=== PATIENT | female | born 1980 | race Caucasian/White ===

== ENCOUNTER 2019-12-07 15:43 | Emergency (ER) | payer MEDICARE, MEDICAID, SELFPAY ==
[2019-12-07 15:51] VITALS: BP 156/103; PULSE 89; RESP 20; TEMP 36.3; O2SAT 100
[2019-12-07 16:00] VITALS: BP 156/103; PULSE 89; RESP 18; TEMP 36.3; O2SAT 100; BMI 23.8
--- NOTE | 2019-12-07 16:27 | ED.PSYCH ---
HPI - Psych General Chief Complaint: Psychiatric Symptoms <Joshua Manjarrez NP - Last Filed: 12/07/19 20:59> Stated Complaint: crisis <Joshua Manjarrez NP - Last Filed: 12/07/19 20:59> Time Seen by Provider: 12/07/19 16:27 <Joshua Manjarrez NP - Last Filed: 12/07/19 20:59> Source: patient and EMS <Joshua Manjarrez NP - Last Filed: 12/07/19 20:59> Mode of arrival: EMS <Joshua Manjarrez NP - Last Filed: 12/07/19 20:59> Limitations: no limitations <Joshua Manjarrez NP - Last Filed: 12/07/19 20:59> History of Present Illness HPI Narrative: 31-year-old female with history of anxiety disorder, depression, substance abuse who was at [facility] for opiate and alcohol detox. She had reportedly a phone call that became quite upsetting to her and after phone call she made a statement to the staff that she wanted to wanting to traffic thus EMS was called and transfer to ED for further evaluation. Patient denies any thoughts of SI states she made this statement out of the moment and being upset. Patient was on a locking it there. She has otherwise been doing okay. She denies any current medical problems. <Joshua Manjarrez NP - Last Filed: 12/07/19 20:59> MD complaint: feels depressed <Joshua Manjarrez NP - Last Filed: 12/07/19 20:59> Onset (ago): hour(s) <Joshua Manjarrez NP - Last Filed: 12/07/19 20:59> Duration: resolved prior to arrival <Joshua Manjarrez NP - Last Filed: 12/07/19 20:59> History of same: Yes <Joshua Manjarrez NP - Last Filed: 12/07/19 20:59> Relieving factors: medication and therapy <Joshua Manjarrez NP - Last Filed: 12/07/19 20:59> Exacerbating factors: other <Joshua Manjarrez NP - Last Filed: 12/07/19 20:59> Associated psychiatric symptoms: depression <Joshua Manjarrez NP - Last Filed: 12/07/19 20:59> Associated symptoms: denies other symptoms <Joshua Manjarrez NP - Last Filed: 12/07/19 20:59> Treatments prior to arrival: none <Joshua Manjarrez NP - Last Filed: 12/07/19 20:59> Related Data Allergies/Adverse Reactions: Allergies Allergy/AdvReac Type Severity Reaction Status Date / Time amoxicillin [AMOXICILLIN] Allergy Intermediate STOMACH Verified 12/07/19 17:58 UPSET, stomach pain and diarrhea trazodone [TRAZODONE] Allergy Intermediate UNKNOWN Verified 12/07/19 17:58 ketorolac [From TORADOL] Allergy Mild RASH Verified 12/07/19 17:58 Sulfa (Sulfonamide Allergy Mild GI UPSET Verified 12/07/19 17:58 Antibiotics) acetaminophen [Vicodin] Allergy Unknown Unknown Verified 12/07/19 17:58 magnesium [MAGNESIUM] Allergy Unknown UNKNOWN Verified 12/07/19 17:58 promethazine [From PHENERGAN] Allergy Unknown UNKNOWN Verified 12/07/19 17:58 quetiapine [Seroquel] Allergy Unknown Unknown Verified 12/07/19 17:58 tramadol [TRAMADOL] Allergy Unknown UNK Verified 12/07/19 17:58 zolpidem Allergy Unknown Unknown Verified 12/07/19 17:58 hydrocodone [From VICODIN] AdvReac Mild MIGRAINES Verified 12/07/19 17:58 metoclopramide [From REGLAN] AdvReac Unknown PT STATES Verified 12/07/19 17:58 GETTING SHAKY pregabalin [From LYRICA] AdvReac Unknown HALLUCINATI Verified 12/07/19 17:58 ONS Sulfacet-R Allergy Unknown Stomache Uncoded 02/19/19 00:00 pain and diarrhea <Joshua Manjarrez NP - Last Filed: 12/07/19 20:59> Review of Systems Review of Systems: Constitutional: No Weight loss, No Fever, No Chills, No Night Sweats, No Fatigue, No Malaise ENT/Mouth: No Hearing loss, No Ear Pain, No Nasal Congestion, No Sinus Pain, No Hoarseness, No sore throat, No Rhinorrhea, No Swallowing Difficulty Eyes: No Eye Pain, No Swelling, No Redness, No Foreign Body, No Discharge, No Vision Changes Cardiovascular: No Chest Pain, No SOB, No Dyspnea on Exertion, No Orthopnea, No Edema, No Palpitations Respiratory: No Cough, No Sputum, No Wheezing, No Smoke Exposure, No Dyspnea Gastrointestinal: No Nausea, No Vomiting, No Diarrhea, No Constipation, No abdominal Pain, No Hematochezia, No Melena Genitourinary: no irregular bleeding, No Dysuria, No Urinary Frequency, No Hematuria, No Urinary Incontinence, No Urgency, No Flank Pain, No Urinary Flow Changes, No Hesitancy Musculoskeletal: No joint pain, No Myalgias, No Joint Swelling Skin: No Skin Lesions, No rash Neuro: No Weakness, No Numbness, No Paresthesias, No Loss of Consciousness, No Dizziness, No Headache Psych: As noted per HPI, No SI/HI/AH/VH Heme/Lymph: No Bruising, No Bleeding,No Lymphadenopathy Endocrine: No Polyuria, No Polydipsia, No Temperature Intolerance <Joshua Manjarrez NP - Last Filed: 12/07/19 20:59> Yes all other systems are reviewed and are negative <Joshua Manjarrez NP - Last Filed: 12/07/19 20:59> [facility] Past Medical History Attestation statement: The following information was validated with the patient. <Joshua Manjarrez NP - Last Filed: 12/07/19 20:59> Social History Social History: Social History Smoking Status: Unknown if ever smoked Use of substances other than those prescribed or required for medical reasons: Yes Substance Use Type: Crack/Cocaine and Heroin Substance Use Frequency: Chronic Longstanding Last Used Substance: Days (ago) Any prior treatment program specific to substance use: Yes Advance Directives: No Advance Directives Information Provided: Yes <Joshua Manjarrez NP - Last Filed: 12/07/19 20:59> Physical Exam Vital Signs: Vital Signs: Vital Signs Temp Pulse Resp BP Pulse Ox 12/07/19 20:19 16 12/07/19 16:00 97.3 F 89 18 156/103 H 100 12/07/19 15:51 97.3 F 89 20 156/103 H 100 Body Mass Index 23.8 Reviewed <Joshua Manjarrez NP - Last Filed: 12/07/19 20:59> Vital Signs: Vital Signs Temp Pulse Resp BP Pulse Ox 12/07/19 20:19 16 12/07/19 16:00 97.3 F 89 18 156/103 H 100 12/07/19 15:51 97.3 F 89 20 156/103 H 100 Body Mass Index 23.8 <Delfino Zhong MD - Last Filed: 12/07/19 21:15> Course Course Course Narrative: offers no medical complaints. Will check UA U/detox/ preg and obtain crisis evaluation. Resting comfortably. No signs of symptoms of withdrawal. <Joshua Manjarrez NP - Last Filed: 12/07/19 20:59> I have reviewed the chart <Delfino Zhong MD - Last Filed: 12/07/19 21:15> MDM - Psych Restraints Face to Face Assessment: Face to Face Assessment: Current Situation: After assessment of the patient, a review of the pertinent medical record and a discussion with nursing staff, I feel the patient requires a restrain intervention. Reaction To: [] Medical Condition: [] Behavioral State: [] Continued Need: [] <Joshua Manjarrez NP - Last Filed: 12/07/19 20:59> Lab Data Labs: Lab Results 12/07/19 12/07/19 Range/Units 16:34 16:34 Urine Color YELLOW Urine Appearance HAZY Urine pH 7.5 (5.0-8.0) Ur Specific [place] 1.015 (1.005-1.025) Urine Protein NEG (NEG-TRACE) MG/DL Urine Glucose (UA) NEG (NEG) MG/DL Urine Ketones NEG (NEG) MG/DL Urine Blood NEG (NEG) Urine Nitrite NEG (NEG) Ur Leukocyte Esterase NEG (NEG) Urine RBC 0 (0) /HPF Urine WBC 0 (0-4) /HPF Ur Squamous Epith Cells 3+ /LPF Urine Bacteria NONE /LPF Urine Yeast TRACE /HPF Urine Test NEGATIVE (NEGATIVE) Urine Opiates Screen POSITIVE H (Not Detect) Ur Barbiturates Screen Not Detected (Not Detect) Ur Phencyclidine Scrn Not Detected (Not Detect) Ur Amphetamines Screen Not Detected (Not Detect) U Benzodiazepines Scrn POSITIVE H (Not Detect) Urine Cocaine Screen POSITIVE H (Not Detect) U Marijuana (THC) Screen Not Detected (Not Detect) <Joshua Manjarrez NP - Last Filed: 12/07/19 20:59> Lab Results 12/07/19 12/07/19 Range/Units 16:34 16:34 Urine Color YELLOW Urine Appearance HAZY Urine pH 7.5 (5.0-8.0) Ur Specific [place] 1.015 (1.005-1.025) Urine Protein NEG (NEG-TRACE) MG/DL Urine Glucose (UA) NEG (NEG) MG/DL Urine Ketones NEG (NEG) MG/DL Urine Blood NEG (NEG) Urine Nitrite NEG (NEG) Ur Leukocyte Esterase NEG (NEG) Urine RBC 0 (0) /HPF Urine WBC 0 (0-4) /HPF Ur Squamous Epith Cells 3+ /LPF Urine Bacteria NONE /LPF Urine Yeast TRACE /HPF Urine Test NEGATIVE (NEGATIVE) Urine Opiates Screen POSITIVE H (Not Detect) Ur Barbiturates Screen Not Detected (Not Detect) Ur Phencyclidine Scrn Not Detected (Not Detect) Ur Amphetamines Screen Not Detected (Not Detect) U Benzodiazepines Scrn POSITIVE H (Not Detect) Urine Cocaine Screen POSITIVE H (Not Detect) U Marijuana (THC) Screen Not Detected (Not Detect) <Delfino Zhong MD - Last Filed: 12/07/19 21:15>
--- NOTE | 2019-12-07 16:34 | PC.NURSE ---
Pt cooperative with microsoft exchange administrator. Denies SI. Currently resting in bed. No signs of distress.
[2019-12-07 16:45] LABS: Glucose Urine UA NEG (NEG); Leukocyte Esterase Urine NEG (NEG); Nitrite Urine NEG (NEG); PH 7.5 (5.0-8.0); Specific Gravity - Urine 1.015 (1.005-1.025); Urine Blood NEG (NEG); Urine Ketones NEG (NEG); Urine Protein NEG (NEG-TRACE)
[2019-12-07 16:48] LABS: Appearance Urine HAZY; Color Urine YELLOW
[2019-12-07 17:18] LABS: Amphetamine Screen Urine Not Detected (Not Detect); Barbiturates, Urine Not Detected (Not Detect); Benzodiazepines Screen Urine POSITIVE (Not Detect); Cannabinoid Screen Urine Not Detected (Not Detect); Cocaine Screen Urine POSITIVE (Not Detect); Opiate Screen Urine POSITIVE (Not Detect); Phencyclidine Screen Urine Not Detected (Not Detect)
[2019-12-07] MEDS: chlordiazePOXIDE HCl 25 MG CAPSULE PO (18:11)
--- NOTE | 2019-12-07 18:13 | PC.NURSE ---
CARE team feels pt is not currently meeting criteria for discharge. Consulted with provider about mediations. Pt scored a 12 on CIWA. Medicated with librium 25 MG. N faxed.
[2019-12-07 18:27] LABS: RBC Urine 0 /HPF (0); Squamous Epithelial Cell Urine 3+ /LPF; WBC Urine 0 /HPF (0-4)
[2019-12-07 18:28] LABS: UPreg QC Valid YES; Urine Pregnancy NEGATIVE (NEGATIVE)
--- NOTE | 2019-12-07 18:32 | MHC.CARE ---
CARE Team meets with patient after receiving consult indicating that pt is depressed. Pt was sent to the ED on a section [address] [facility]. CARE Team speaks with Latisha Dowling, a counselor who met with pt today. She describes that pt was very agitated earlier today, making multiple SI statements, and asking to be discharged so that she could go run into traffic. Latisha reports that pt was not able to calm down and was very irritable. Latisha reports that ATS level of care is not able to meet pt's needs, and she needs psychiatric stabilization first before she will be able to benefit from ATS. Prov is not willing to have pt back at this time, but they advocate that pt receive psychiatric treatment and return to their program when she is able to engage. CARE Team meets with pt briefly. Pt endorses making threat to run into traffic, however, denies active SI and denies hx of attempts. CARE Team speaks with Joshua Manjarrez and recommends crisis evaluation. Pt will not be able to maintain in ATS level of care at this time, and therefore medication stabilization should be considered. CARE Team will coordinate with [facility] crisis.
--- NOTE | 2019-12-07 18:41 | PC.NURSE ---
Pt resting, resp unlabored. Pt seen by CARE team, now to be seen by bhn. bhn faxed and called.
--- NOTE | 2019-12-07 18:49 | PC.NURSE ---
CHARLES faxed and called
[2019-12-07 20:19] VITALS: RESP 16
--- NOTE | 2019-12-07 20:21 | PC.NURSE ---
Pt currently asleep, no signs of distress, respirations non-labored
[2019-12-07 21:41] VITALS: BP 136/94; PULSE 105; RESP 20; TEMP 36.1; O2SAT 100
[2019-12-07] MEDS: LORazepam 0.5 MG TABLET 1 MG PO (22:35)
[2019-12-08 00:19] VITALS: BP 140/90; PULSE 100
[2019-12-08] MEDS: cloNIDine HCL 0.1 MG TABLET PO (00:19)
[2019-12-08] MEDS: chlordiazePOXIDE HCl 25 MG CAPSULE PO (00:20)
--- NOTE | 2019-12-08 00:23 | PC.NURSE ---
PT RESTLESS, AGITATED, STATES SHE IS WITHDRAWING FROM EVERYTHING COKE, CRACK, ALCOHOL, DOPE PT MEDICATED PER EMAR, WILL RECHECK VS IN 30 MINS.
[2019-12-08] MEDS: Mirtazapine 15 MG TABLET 45 MG PO (00:50)
[2019-12-08] MEDS: Zolpidem Tartrate 5 MG TABLET 10 MG PO (00:51)
[2019-12-08 00:55] VITALS: BP 122/86; PULSE 95; RESP 17; TEMP 36.5; O2SAT 100
--- NOTE | 2019-12-08 01:43 | PC.NURSE ---
PT OOB, AMBULATED TO RESTROOM INDEPENDENTLY W/STEADY GAIT PT EATING CRACKERS AND GINGERALE HAS NO CURRENT COMPLAINTS
[2019-12-08] MEDS: diphenhydrAMINE HCL 25 MG TABLET 50 MG PO (02:14)
[2019-12-08 03:06] VITALS: BP 121/70; PULSE 90; RESP 18; O2SAT 99
--- NOTE | 2019-12-08 03:59 | PC.NURSE ---
PT OOB TO THE RESTROOM. STATES I AM GOING TO SNAP RN ASKED PT TO CLARIFY AND PT REFUSED. IT WAS DISCUSSED W/PT SHE IS HERE VOLUNTARILY. WILL CONTINUE TO MONITOR PTS VS, AND ANY SIGNS OF WITHDRAWL. PT LAST SET OF VS WNL, PT DOES NOT APPEAR DIAPHORETIC OR PALE, NO VISIBLE SHAKING, PT STEADY ON FEET. DENIES VISUAL OR AUDITORY HALLUCINATIONS. WILL CONT. TO MONITOR
--- NOTE | 2019-12-08 04:12 | ECG_ITS ---
Test Reason : MEDICAL CLEARANCE Blood Pressure : / mmHG Vent. Rate : 074 BPM Atrial Rate : 074 BPM P-R Int : 146 ms QRS Dur : 078 ms QT Int : 434 ms P-R-T Axes : 071 044 052 degrees QTc Int : 481 ms Normal sinus rhythm Left atrial enlargement Otherwise normal ECG When compared with ECG of 08-MAY-2019 18:19, ST no longer depressed in Inferior leads Lateral leads Referred By: Pilar Timmons Electronically Signed By:WILMAN BRUNNER MD
--- NOTE | 2019-12-08 04:35 | PC.NURSE ---
pt restless, requesting additional meds. Spoke w/provider will do ekg if ok will give haldol. Pt also requesting zofran at this time.
[2019-12-08] MEDS: OLANZapine 2.5 MG TABLET PO (05:02)
[2019-12-08 06:40] VITALS: BP 95/58; PULSE 70; RESP 16; TEMP 36.4; O2SAT 98
--- NOTE | 2019-12-08 06:55 | PC.NURSE ---
Report received. PT sleeping in bed. Breathing even and unlabored. PT is EATS bed search.
[2019-12-08] MEDS: DULoxetine HCl 60 MG CAPSULE.DR PO (08:25)
[2019-12-08 08:36] VITALS: BP 127/83
--- NOTE | 2019-12-08 08:50 | PC.NURSE ---
PT agitated, requested methadone, explained that without a prescription we cannot give methadone without a prescription. Pt angry, requesting discharge. provider aware, discharge paperwork given to pt, pt now saying she cannot leave and that we need to help her, explained that her paperwork was faxed to [facility] per her request, pt stating she cannot make phone calls and we need to do your job . BHN in to speak with PT.
[2019-12-08] MEDS: LORazepam 0.5 MG TABLET 1 MG PO (09:00)
--- NOTE | 2019-12-08 10:02 | PC.NURSE ---
PT is resting in bed. Calm and cooperative. PT medicated per EMAR, continues to request meds for withdraw. PT does not appear to have tremors, perspiration, nausea, unsteady gait.
[2019-12-08 11:37] VITALS: BP 100/59
--- NOTE | 2019-12-08 12:14 | PC.NURSE ---
PT is resting in bed. Calm and cooperative. PT waiting to find a ride home.
== END 2019-12-08 12:41 | disposition home or self-care (01) ==
PROVIDERS: Nurse Practitioner Primary Care; Emergency Provider Emergency Medicine
DX: F33.1 Major depressive disorder, recurrent, moderate (principal); F11.10 Opioid abuse, uncomplicated; F14.10 Cocaine abuse, uncomplicated; Z71.51 Drug abuse counseling and surveillance of drug abuser
CPT/HCPCS: 80307; 81001; 81025; 93005; 99285; Q0163

== ENCOUNTER 2019-12-09 12:55 | Inpatient (IN) | payer MEDICARE, MEDICAID, SELFPAY ==
[2019-12-09 13:08] VITALS: BP 118/83; PULSE 76; RESP 22; TEMP 36.8; O2SAT 97; BMI 23.8
[2019-12-09 13:23] VITALS: BP 112/57; PULSE 75; RESP 16; O2SAT 96
--- NOTE | 2019-12-09 13:31 | ECG_ITS ---
Test Reason : OVERDOSE Blood Pressure : / mmHG Vent. Rate : 066 BPM Atrial Rate : 066 BPM P-R Int : 152 ms QRS Dur : 080 ms QT Int : 444 ms P-R-T Axes : 074 043 038 degrees QTc Int : 465 ms Normal sinus rhythm Possible Left atrial enlargement Nonspecific T wave abnormality Prolonged QT Abnormal ECG When compared with ECG of 08-DEC-2019 04:48, Nonspecific T wave abnormality is new Referred By: Yomi Weathers Electronically Signed By:WILMAN BRUNNER MD
[2019-12-09 14:23] LABS: MANUAL DIFF FLAG NO
[2019-12-09 14:25] LABS: Basophils Percent Auto 0.4 % (0-2); Eosinophils Absolute Auto 0.2 X10*3/uL (0.0-0.4); Eosinophils Percent Auto 2.7 % (0-4); Hemoglobin 12.5 g/dl (12.0-16.0); Imm Gran Abs Auto 0.03 X10*3/uL (0.00-0.03); Imm Gran Pct Auto 0.4 % (0.0-0.4); Lymphocytes Absolute Auto 2.7 X10*3/uL (1.2-4.9); Lymphocytes Percent Auto 32.5 % (20-40); Mean Corpuscular HGB Conc 33.8 g/dl (31.0-35.0); Mean Corpuscular Hemoglobin 31.9 pg (27.0-33.0); Mean Corpuscular Volume 94.4 fL (80-98); Mean Platelet Volume 9.4 fL (9.4-12.3); Monocytes Absolute Auto 0.5 X10*3/uL (0.1-1.2); Monocytes Percent Auto 6.6 % (2-11); Neutrophils Absolute Auto 4.7 X10*3/uL (2.0-8.3); Neutrophils Percent Auto 57.4 % (45-73); Platelet Count 418 X10*3/uL (160-400); Red Blood Count 3.92 X10*6/uL (4.20-5.50); Red Cell Distribution Width 13.2 % (11.0-16.0); White Blood Count 8.2 X10*3/uL (4.8-10.8)
[2019-12-09 14:33] LABS: Prothrombin Time 12.1 SEC (10.8-13.0)
[2019-12-09 14:36] LABS: Partial Thromboplastin Time 32.6 SEC (24.1-38.0)
[2019-12-09 14:47] LABS: Ethanol < 10 mg/dL
--- NOTE | 2019-12-09 14:49 | ED.OVERDOSE ---
HPI - Overdose General Chief Complaint: Overdose Stated Complaint: overdose Time Seen by Provider: 12/09/19 13:03 Mode of arrival: ambulatory Limitations: no limitations History of Present Illness HPI Narrative: patient presents to ED for intentional overdose. Patient states she is having problems with her mother. Patient patient does not remember the quantity of pills she took, but remembers taking propranolol and Remeron. Related Data Home Medications Medication Instructions Recorded Confirmed duloxetine 60 mg PO DAILY 12/07/19 12/07/19 mirtazapine 15 mg PO BEDTIME 12/07/19 12/07/19 mirtazapine 45 mg PO BEDTIME 12/07/19 12/07/19 propranolol 120 mg PO DAILY 12/07/19 12/07/19 zolpidem 10 mg PO BEDTIME 12/07/19 12/07/19 Allergies Allergy/AdvReac Type Severity Reaction Status Date / Time amoxicillin [AMOXICILLIN] Allergy Intermediate STOMACH Verified 12/07/19 17:58 UPSET, stomach pain and diarrhea trazodone [TRAZODONE] Allergy Intermediate UNKNOWN Verified 12/07/19 17:58 ketorolac [From TORADOL] Allergy Mild RASH Verified 12/07/19 17:58 Sulfa (Sulfonamide Allergy Mild GI UPSET Verified 12/07/19 17:58 Antibiotics) acetaminophen [Vicodin] Allergy Unknown Unknown Verified 12/07/19 17:58 magnesium [MAGNESIUM] Allergy Unknown UNKNOWN Verified 12/07/19 17:58 promethazine [From PHENERGAN] Allergy Unknown UNKNOWN Verified 12/07/19 17:58 quetiapine [Seroquel] Allergy Unknown Unknown Verified 12/07/19 17:58 tramadol [TRAMADOL] Allergy Unknown UNK Verified 12/07/19 17:58 zolpidem Allergy Unknown Unknown Verified 12/07/19 17:58 hydrocodone [From VICODIN] AdvReac Mild MIGRAINES Verified 12/07/19 17:58 metoclopramide [From REGLAN] AdvReac Unknown PT STATES Verified 12/07/19 17:58 GETTING SHAKY pregabalin [From LYRICA] AdvReac Unknown HALLUCINATI Verified 12/07/19 17:58 ONS Sulfacet-R Allergy Unknown Stomache Uncoded 02/19/19 00:00 pain and diarrhea Review of Systems Review of Systems: Yes all other systems are reviewed and are negative Constitutional: Constitutional: Reports as per HPI and Reports no additional constitutional complaints Eyes: Eyes: Reports as per HPI and Reports no additional eye complaints ENT: Reports system reviewed and no additional complaints, except as documented and Reports as per HPI Cardiovascular: Cardiovascular: Reports as per HPI and Reports no additional cardiovascular complaints Respiratory: Respiratory: Reports as per HPI and Reports no additional respiratory complaints Gastrointestinal: Gastrointestinal: Reports as per HPI and Reports no additional gastrointestinal complaints Musculoskeletal: Musculoskeletal: Reports no additional musculoskeletal complaints and Reports as per HPI Neurologic: Reports system reviewed and no additional complaints, except as documented and Reports as per HPI Psychiatric: Psychiatric: Reports as per HPI and Reports depression Comments: suicide attempt [facility] Past Medical History Medical History Suicide attempt by beta gio overdose Social History Social History Alcohol intake: unknown Smoking Status: Smoker, status unknown Use of substances other than those prescribed or required for medical reasons: Yes Substance Use Type: Crack/Cocaine and Heroin Advance Directives: No Advance Directives Information Provided: No Suicidal Behavior: Self-injurious behavior Current/Past Psychiatric Disorders: Substance abuse Physical Exam Vital Signs: Vital Signs: Vital Signs Temp Pulse Resp BP Pulse Ox 12/09/19 16:43 70 98/52 L 12/09/19 16:16 98.2 F 70 20 92/50 L 100 12/09/19 13:23 75 16 112/57 L 96 12/09/19 13:08 98.3 F 76 22 H 118/83 97 Body Mass Index 23.8 Const: General: cooperative, healthy appearing, comfortable, no acute distress and well developed Orientation/consciousness: oriented to person, oriented to place, oriented to time and patient oriented x3 HENMT: Head: Yes normal to inspection Eyes: General: appearance normal, both eyes and all related structures Neck: Neck: Yes normal visual inspection and Yes full ROM Chest: Chest palpation & inspection: normal inspection of the chest, normal palpation of entire chest wall, no localized rib tenderness and no tenderness Resp: Effort & Inspection: normal respiratory effort Auscultation: clear to auscultation bilaterally Cardio: Jugular venous distension: no JVD Heart sounds: S1 normal heart sound present and S2 normal heart sound present GI: Inspection: Yes normal to inspection, No abdominal wall ecchymosis, No Abdominal wall edema and No distended Palpation (GI): Soft to palpation, not firm, nontender, no guarding and not rigid Percussion: Yes normal to percussion Auscultation: normal bowel sounds : General: No CVA tenderness and Yes no CVA tenderness Back/Spine/Pelvis: Back: no CVA tenderness, No CVA tenderness and No back tenderness Skin: General skin exam: no rashes or lesions noted Neuro: General: oriented to person, oriented to place, oriented to time, patient oriented x3, gait normal and CN's II-XI intact bilaterally Cranial nerves: Yes CN's II-XII intact bilaterally Extrem: General: Yes normal to inspection Psych: Appearance: grossly normal and well kempt Course Course Course Narrative: Patient admits to intentional overdose. Patient will have basic labs, EKG, and labs including Tylenol and salicylates. Will call poison control. IV fluids ordered. Patient eating food drinking water Reevaluation(s) Reevaluation #1: patient's labs came back normal. Patient now slightly hypotensive. Spoke with poison control who recommended patient have repeat labs, and EKG. They also recommend patient be admitted to the hospital. They states patient should receive 5 mg IV bolus of glucagon and and then patient should be placed on a glucagon IV drip 5 milligram/hour. Time: 16:30 Reevaluation #2: spoke with hospitalist Casie who agrees to accept patient. She states patient could be given glucagon IV bolus, but patient is not bradycardic and blood pressure improving. Believes glucagon IV drip can be held. We will order repeat labs Time: 16:52 Reevaluation #3: poison Control nurse called back states she informed the sugar reprocess operator head of updated vital signs and she states that the sugar reprocess operator head no longer wants the patient to receive glucagon IV or drip. Patient is still to be admitted for observation. Time: 17:41 Additional Reevaluation(s): case sign-out to MARTÍN Hidalgo to follow-up with labs and EKG. MDM - Overdose MDM Narrative Medical decision making narrative: patient to be admitted for intentional overdose by taking propanolol and Remeron. Lab Data Result diagrams: 12/09/19 14:16 12/09/19 14:16 Labs: Lab Results 10/18/20 10/18/20 10/18/20 Range/Units 14:16 14:16 14:16 WBC 8.2 (4.8-10.8) X10*3/uL RBC 3.92 L (4.20-5.50) X10*6/uL Hgb 12.5 (12.0-16.0) g/dl Hct 37.0 (37-47) % MCV 94.4 (80-98) fL MCH 31.9 (27.0-33.0) pg MCHC 33.8 (31.0-35.0) g/dl RDW 13.2 (11.0-16.0) % Plt Count 418 H (160-400) X10*3/uL MPV 9.4 (9.4-12.3) fL Immature Gran % (Auto) 0.4 (0.0-0.4) % Neut % (Auto) 57.4 (45-73) % Lymph % (Auto) 32.5 (20-40) % [place] % (Auto) 6.6 (2-11) % Eos % (Auto) 2.7 (0-4) % Baso % (Auto) 0.4 (0-2) % Lymph # (Auto) 2.7 (1.2-4.9) X10*3/uL [place] # (Auto) 0.5 (0.1-1.2) X10*3/uL Eos # (Auto) 0.2 (0.0-0.4) X10*3/uL Baso # (Auto) 0.0 (0.0-0.2) X10*3/uL Abs Immat Gran (auto) 0.03 (0.00-0.03) X10*3/uL Absolute Neuts (auto) 4.7 (2.0-8.3) X10*3/uL Absolute Nucleated RBC 0.000 (0.0-0.012) X10*3/uL Nucleated RBC % (auto) 0.0 (0.0-0.2) /100WBC PT (10.8-13.0) SEC INR (0.9-1.1) APTT (24.1-38.0) SEC Sodium 137 (135-145) mmol/L Potassium 3.5 (3.3-5.1) mmol/l Chloride 103 (96-108) mmol/L Carbon Dioxide 27 (22-29) mmol/L Anion Gap 11 L (12-20) BUN 9 (9-16) mg/dL Creatinine 0.78 (0.5-1.4) mg/dL Estim Creat Clear Calc 77.3 Estimated GFR > 60 Random Glucose 104 (60-115) mg/dL Calcium 8.9 (8.4-10.2) mg/dL Total Bilirubin < 0.2 (0.0-1.0) mg/dL Direct Bilirubin < 0.2 (0.0-0.5) mg/dL AST 25 (5-31) U/L ALT 36 H (0-31) U/L Alkaline Phosphatase 83 (39-117) U/L Total Protein 6.9 (6.5-8.0) g/dL Albumin 3.9 (3.5-5.0) g/dL Lipase 18 (8-78) U/L Salicylates < 5.0 L (15-30) mg/dL Acetaminophen < 1 (<30) mcg/mL Ethyl Alcohol < 10 mg/dL 12/09/19 Range/Units 14:16 WBC (4.8-10.8) X10*3/uL RBC (4.20-5.50) X10*6/uL Hgb (12.0-16.0) g/dl Hct (37-47) % MCV (80-98) fL MCH (27.0-33.0) pg MCHC (31.0-35.0) g/dl RDW (11.0-16.0) % Plt Count (160-400) X10*3/uL MPV (9.4-12.3) fL Immature Gran % (Auto) (0.0-0.4) % Neut % (Auto) (45-73) % Lymph % (Auto) (20-40) % [place] % (Auto) (2-11) % Eos % (Auto) (0-4) % Baso % (Auto) (0-2) % Lymph # (Auto) (1.2-4.9) X10*3/uL [place] # (Auto) (0.1-1.2) X10*3/uL Eos # (Auto) (0.0-0.4) X10*3/uL Baso # (Auto) (0.0-0.2) X10*3/uL Abs Immat Gran (auto) (0.00-0.03) X10*3/uL Absolute Neuts (auto) (2.0-8.3) X10*3/uL Absolute Nucleated RBC (0.0-0.012) X10*3/uL Nucleated RBC % (auto) (0.0-0.2) /100WBC PT 12.1 (10.8-13.0) SEC INR 1.0 (0.9-1.1) APTT 32.6 (24.1-38.0) SEC Sodium (135-145) mmol/L Potassium (3.3-5.1) mmol/l Chloride (96-108) mmol/L Carbon Dioxide (22-29) mmol/L Anion Gap (12-20) BUN (9-16) mg/dL Creatinine (0.5-1.4) mg/dL Estim Creat Clear Calc Estimated GFR Random Glucose (60-115) mg/dL Calcium (8.4-10.2) mg/dL Total Bilirubin (0.0-1.0) mg/dL Direct Bilirubin (0.0-0.5) mg/dL AST (5-31) U/L ALT (0-31) U/L Alkaline Phosphatase (39-117) U/L Total Protein (6.5-8.0) g/dL Albumin (3.5-5.0) g/dL Lipase (8-78) U/L Salicylates (15-30) mg/dL Acetaminophen (<30) mcg/mL Ethyl Alcohol mg/dL ECG Data Interpretation: Normal sinus rhythm. Ventricular heart rate 66. Nonspecific T-wave abnormality. Possible left atrial enlargement. P are interval 152. Discharge Plan Discharge Clinical Impression: Suicide attempt by beta gio overdose Patient Disposition: Admitted As Inpatient
[2019-12-09 14:50] LABS: Alanine Aminotransferase 36 U/L (0-31); Albumin Level 3.9 g/dL (3.5-5.0); Alkaline Phosphatase 83 U/L (39-117); Anion Gap 11 (12-20); Aspartate Amino Transferase 25 U/L (5-31); Bilirubin Direct < 0.2 mg/dL (0.0-0.5); Bilirubin Total < 0.2 mg/dL (0.0-1.0); Blood Urea Nitrogen 9 mg/dL (9-16); Calcium 8.9 mg/dL (8.4-10.2); Carbon Dioxide 27 mmol/L (22-29); Chloride 103 mmol/L (96-108); Creatinine Clr Calc Pharmacy 77.3; Estimated Glomerular Filt Rate > 60; Glucose Random 104 mg/dL (60-115); Lipase 18 U/L (8-78); Potassium 3.5 mmol/l (3.3-5.1); Salicylate < 5.0 mg/dL (15-30); Sodium 137 mmol/L (135-145); Total Protein 6.9 g/dL (6.5-8.0)
[2019-12-09 14:59] LABS: Acetaminophen LAB < 1 mcg/mL (<30)
[2019-12-09] MEDS: 0.9 % Sodium Chloride 1,000 ML 999 ML IVCONT ×2 (15:04)
[2019-12-09 16:16] VITALS: BP 92/50; PULSE 70; RESP 20; TEMP 36.8; O2SAT 100
[2019-12-09 16:43] VITALS: BP 98/52; PULSE 70
--- NOTE | 2019-12-09 17:26 | P.EN_ITS ---
Event Note Event Note: Date of Service: December 09, 2019 Addendum to H and P by Mid-level Provider I saw and examined the patient and participated in the gordon portion of the E/M service. I agree with the history and exam as documented by PROJECT MANAGEMENT INSTRUCTOR. Patient psych issues and here with polypharmacy, intentional overdose including Inderal and Re toya--she unable to quantify how much she took other than she took alot. BP since in ED has been trending down, yet no bradycardia. Poison control recommend Glucagon drip to counter possible delay effect of beta gio--espiecially given she is prescribed extended release of Inderal. Exam: She denies SI clamining her mother pissed her off . Will admit for IV Glucagon, and hemodynamic monitoring. She will need. CHARLES eval for disposion. She has history of opioid dependence and is at risk for withdrawal. Will give ativan, avoid clonidine as it can accentuate bradydardia. Otherwise I agree with H and P as dictated by MARTÍN.
--- NOTE | 2019-12-09 17:32 | PM.IMHP ---
History of Present Illness Date of Service: 12/09/19 <MARTÍN Culp - Last Filed: 12/09/19 18:25> Chief Complaint: intentional medication overdose <MARTÍN Culp Last Filed: 12/09/19 18:25> this is a 39-year-old female who presents to the emergency department after intentionally ingesting Remeron and propanolol. Patient reports she got in a fight with her mother and this prompted her to take a handful of propanolol and Remeron. She is less than forthcoming with the timing and amount of medication ingested. In the emergency department her labs were unremarkable EKG showed sinus rhythm at 66 beats per minute. On the monitor her heart rate remained in the 70s. Her blood pressure was on the softer side in the 90 systolic. Patient denied any chest pain, palpitations, shortness of breath. She reported feeling generalized weakness. She also reported feeling like she was starting to withdrawal from heroin and cocaine. Poison control was contacted and initially recommended glucagon but later called back and recommended observation only. This reason the decision was made to admit her to the hospital for close monitoring overnight. <MARTÍN Culp - Last Filed: 12/09/19 18:25> Review of Systems Review of Systems: Yes all other systems are reviewed and are negative <MARTÍN Culp Last Filed: 12/09/19 18:25> Constitutional: Constitutional: Denies chills and Denies fever(s) <MARTÍN Culp Last Filed: 12/09/19 18:25> Cardiovascular: Cardiovascular: Denies chest pain <MARTÍN Culp Last Filed: 12/09/19 18:25> Respiratory: Respiratory: Denies cough <MARTÍN Culp Last Filed: 12/09/19 18:25> Gastrointestinal: Gastrointestinal: Denies abdominal pain <MARTÍN Culp Last Filed: 12/09/19 18:25> [facility] Medical History: Medical History (Updated 12/10/19 @ 09:13 by [facility] Patel MD) Anxiety Asthma Chronic pain Cocaine abuse Depression Heroin abuse Migraine Suicide attempt by beta gio overdose Tobacco dependence Tremor <MARTÍN Culp Last Filed: 12/09/19 18:25> Pertinent family history: diabetes, hypertension, stroke, heart disease <MARTÍN Culp - Last Filed: 12/09/19 18:25> Surgical History: Surgical History (Updated 12/09/19 @ 17:56 by MARTÍN Culp) S/P total abdominal hysterectomy <MARTÍN Culp - Last Filed: 12/09/19 18:25> Social History: Social History (Updated 12/09/19 @ 18:09 by MARTÍN Culp) Household Members: None Housing: House Alcohol intake: current Alcohol intake frequency: 3 or more drinks per day Smoking Status: Current every day smoker Tobacco Type: Cigarette Packs Per Day: 1 Cigarettes Per Day: 20.0 Smoked in Last 30 Days: Yes Patient Interested in Nicotine Replacement: Yes Patient Given Instructions on How to Stop Smoking: No (pt not interested in quiting) Use of substances other than those prescribed or required for medical reasons: Yes Substance Use Type: Crack/Cocaine and Heroin Substance Use Frequency: Daily Last Used Substance: Hours (ago) Currently Displaying Signs/Symptoms of Drug Intoxication Withdrawal: No Any prior treatment program specific to substance use: Yes Have you been hit, kicked, punched, or otherwise hurt by someone within the past year? If so, by whom?: No Do you feel safe in your current relationship?: No Current Relationship Is there a partner from a previous relationship who is making you feel unsafe now?: No Are you made to feel afraid or neglected: No Advance Directives: No Advance Directives Information Provided: No Suicidal Behavior: Self-injurious behavior Current/Past Psychiatric Disorders: Substance abuse Do you have thoughts of harming others: None Do you have a plan to hurt others: No Plan Recently lost weight without trying: Yes <MARTÍN Culp - Last Filed: 12/09/19 18:25> Meds Allergies/Adverse reactions: Allergies Allergy/AdvReac Type Severity Reaction Status Date / Time amoxicillin [AMOXICILLIN] Allergy Intermediate STOMACH Verified 12/07/19 17:58 UPSET, stomach pain and diarrhea trazodone [TRAZODONE] Allergy Intermediate UNKNOWN Verified 12/07/19 17:58 ketorolac [From TORADOL] Allergy Mild RASH Verified 12/07/19 17:58 Sulfa (Sulfonamide Allergy Mild GI UPSET Verified 12/07/19 17:58 Antibiotics) acetaminophen [Vicodin] Allergy Unknown Unknown Verified 12/07/19 17:58 magnesium [MAGNESIUM] Allergy Unknown UNKNOWN Verified 12/07/19 17:58 promethazine [From PHENERGAN] Allergy Unknown UNKNOWN Verified 12/07/19 17:58 quetiapine [Seroquel] Allergy Unknown Unknown Verified 12/07/19 17:58 tramadol [TRAMADOL] Allergy Unknown UNK Verified 12/07/19 17:58 zolpidem Allergy Unknown Unknown Verified 12/07/19 17:58 hydrocodone [From VICODIN] AdvReac Mild MIGRAINES Verified 12/07/19 17:58 metoclopramide [From REGLAN] AdvReac Unknown PT STATES Verified 12/07/19 17:58 GETTING SHAKY pregabalin [From LYRICA] AdvReac Unknown HALLUCINATI Verified 12/07/19 17:58 ONS Sulfacet-R Allergy Unknown Stomache Uncoded 02/19/19 00:00 pain and diarrhea <MARTÍN Culp - Last Filed: 12/09/19 18:25> Home medications: Home Medications Medication Instructions Recorded Confirmed Type duloxetine 60 mg PO DAILY 12/07/19 12/09/19 History mirtazapine 45 mg PO BEDTIME 12/07/19 12/09/19 History propranolol 120 mg PO DAILY 12/07/19 12/09/19 History zolpidem 10 mg PO BEDTIME 12/07/19 12/09/19 History <MARTÍN Culp - Last Filed: 12/09/19 18:25> Physical Exam Vital Signs and Narrative: Vital Signs: Last Vital Signs Temp 98.2 F 12/09/19 16:16 Pulse 70 12/09/19 16:43 Resp 20 12/09/19 16:16 BP 98/52 L 12/09/19 16:43 Pulse Ox 100 12/09/19 16:16 Body Mass Index 23.8 <MARTÍN Culp - Last Filed: 12/09/19 18:25> Const: Nutritional Appearance: well nourished <MARTÍN Culp Last Filed: 12/09/19 18:25> Orientation/consciousness: patient oriented x3 <MARTÍN Culp Last Filed: 12/09/19 18:25> HENMT: Head: Yes normocephalic and Yes atraumatic <MARTÍN Culp - Last Filed: 12/09/19 18:25> Eyes: Sclerae: sclerae normal <MARTÍN Culp - Last Filed: 12/09/19 18:25> Chest: Chest palpation & inspection: normal inspection of the chest <MARTÍN Culp - Last Filed: 12/09/19 18:25> Resp: Effort & Inspection: normal respiratory effort and no respiratory distress <MARTÍN Culp - Last Filed: 12/09/19 18:25> Auscultation: clear to auscultation bilaterally <MARTÍN Culp - Last Filed: 12/09/19 18:25> Cardio: Rate: regular rate <MARTÍN Culp - Last Filed: 12/09/19 18:25> Rhythm: regular rhythm <MARTÍN Culp - Last Filed: 12/09/19 18:25> GI: Palpation (GI): Soft to palpation and nontender <MARTÍN Culp - Last Filed: 12/09/19 18:25> Skin: General skin exam: no rashes or lesions noted <MARTÍN Culp - Last Filed: 12/09/19 18:25> Neuro: General: patient oriented x3 <MARTÍN Culp - Last Filed: 12/09/19 18:25> Cranial nerves: Yes CN's II-XII intact bilaterally and Yes Bilaterally intact EOM present <MARTÍN Culp - Last Filed: 12/09/19 18:25> Extrem: General: Yes normal to inspection <AMRTÍN Culp - Last Filed: 12/09/19 18:25> Results Labs Labs: Laboratory Tests 12/09/19 12/09/19 12/09/19 14:16 14:16 14:16 WBC 8.2 RBC 3.92 L Hgb 12.5 Hct 37.0 MCV 94.4 MCH 31.9 MCHC 33.8 RDW 13.2 Plt Count 418 H MPV 9.4 Immature Gran % (Auto) 0.4 Neut % (Auto) 57.4 Lymph % (Auto) 32.5 [place] % (Auto) 6.6 Eos % (Auto) 2.7 Baso % (Auto) 0.4 Lymph # (Auto) 2.7 [place] # (Auto) 0.5 Eos # (Auto) 0.2 Baso # (Auto) 0.0 Abs Immat Gran (auto) 0.03 Absolute Neuts (auto) 4.7 Absolute Nucleated RBC 0.000 Nucleated RBC % (auto) 0.0 PT INR APTT Sodium 137 Potassium 3.5 Chloride 103 Carbon Dioxide 27 Anion Gap 11 L BUN 9 Creatinine 0.78 Estim Creat Clear Calc 77.3 Estimated GFR > 60 Random Glucose 104 Calcium 8.9 Total Bilirubin < 0.2 Direct Bilirubin < 0.2 AST 25 ALT 36 H Alkaline Phosphatase 83 Total Protein 6.9 Albumin 3.9 Lipase 18 Salicylates < 5.0 L Acetaminophen < 1 Ethyl Alcohol < 10 12/09/19 14:16 WBC RBC Hgb Hct MCV MCH MCHC RDW Plt Count MPV Immature Gran % (Auto) Neut % (Auto) Lymph % (Auto) [place] % (Auto) Eos % (Auto) Baso % (Auto) Lymph # (Auto) [place] # (Auto) Eos # (Auto) Baso # (Auto) Abs Immat Gran (auto) Absolute Neuts (auto) Absolute Nucleated RBC Nucleated RBC % (auto) PT 12.1 INR 1.0 APTT 32.6 Sodium Potassium Chloride Carbon Dioxide Anion Gap BUN Creatinine Estim Creat Clear Calc Estimated GFR Random Glucose Calcium Total Bilirubin Direct Bilirubin AST ALT Alkaline Phosphatase Total Protein Albumin Lipase Salicylates Acetaminophen Ethyl Alcohol <MARTÍN Culp - Last Filed: 12/09/19 18:25> Assessment and Plan (1) Suicide attempt by beta gio overdose: Status: Acute <MARTÍN Culp - Last Filed: 12/09/19 18:25> this is a 39-year-old female who presented after intentionally ingesting propanolol and Remeron intentional drug overdose hemodynamically stable poison Control has recommended cardiac monitoring - IV fluid - pacer pads in place - follow heart rate and blood pressure closely - if patient becomes hemodynamically unstable would give glucagon - BHN evaluation when medically stable - sitter polysubstance abuse unable to use clonidine given beta-gio overdose - will treat with p.r.nSofia Ativan - psych consult to Janell Yost for assistance in managing opiate withdrawal tobacco dependence smoking cessation advised - NRT DVT prophylaxis- mechanical devices this case was discussed with Dr. Patel <MARTÍN Culp - Last Filed: 12/09/19 18:25>
[2019-12-09 20:00] VITALS: BP 104/61; PULSE 75; RESP 18; TEMP 36.2; O2SAT 98
[2019-12-09] MEDS: LORazepam 0.5 MG TABLET 1 MG PO (20:25)
[2019-12-09] MEDS: Flu Vacc QS2020-21(6mos up)/PF 0.5 ML SYRINGE IM (20:25)
[2019-12-09] MEDS: 0.9 % Sodium Chloride 1,000 ML 100 ML IVCONT (20:26)
[2019-12-09] MEDS: 0.9 % Sodium Chloride Flush 3 ML SYRINGE IVFLUSH (20:30)
[2019-12-09 21:09] LABS: Glucose, Whole Blood 89 mg/dL (60-115)
[2019-12-09 21:47] LABS: MANUAL DIFF FLAG NO
[2019-12-09 21:51] LABS: Basophils Percent Auto 0.5 % (0-2); Eosinophils Absolute Auto 0.1 X10*3/uL (0.0-0.4); Eosinophils Percent Auto 2.2 % (0-4); Hematocrit 32.6 % (37-47); Hemoglobin 10.9 g/dl (12.0-16.0); Imm Gran Abs Auto 0.01 X10*3/uL (0.00-0.03); Imm Gran Pct Auto 0.2 % (0.0-0.4); Lymphocytes Absolute Auto 2.6 X10*3/uL (1.2-4.9); Lymphocytes Percent Auto 40.7 % (20-40); Mean Corpuscular HGB Conc 33.4 g/dl (31.0-35.0); Mean Corpuscular Hemoglobin 32.3 pg (27.0-33.0); Mean Corpuscular Volume 96.7 fL (80-98); Mean Platelet Volume 9.8 fL (9.4-12.3); Monocytes Absolute Auto 0.6 X10*3/uL (0.1-1.2); Monocytes Percent Auto 8.8 % (2-11); Neutrophils Percent Auto 47.6 % (45-73); Platelet Count 334 X10*3/uL (160-400); Red Blood Count 3.37 X10*6/uL (4.20-5.50); Red Cell Distribution Width 13.3 % (11.0-16.0); White Blood Count 6.4 X10*3/uL (4.8-10.8)
[2019-12-09 21:57] LABS: Prothrombin Time 12.3 SEC (10.8-13.0)
[2019-12-09 21:59] LABS: Partial Thromboplastin Time 31.1 SEC (24.1-38.0)
[2019-12-09 22:41] LABS: Acetaminophen LAB < 1 mcg/mL (<30); Alanine Aminotransferase 31 U/L (0-31); Albumin Level 3.1 g/dL (3.5-5.0); Alkaline Phosphatase 73 U/L (39-117); Anion Gap 12 (12-20); Aspartate Amino Transferase 23 U/L (5-31); Bilirubin Direct < 0.2 mg/dL (0.0-0.5); Bilirubin Total < 0.2 mg/dL (0.0-1.0); Blood Urea Nitrogen 11 mg/dL (9-16); Calcium 7.9 mg/dL (8.4-10.2); Carbon Dioxide 24 mmol/L (22-29); Chloride 108 mmol/L (96-108); Creatinine Clr Calc Pharmacy 82.6; Estimated Glomerular Filt Rate > 60; Glucose Random 104 mg/dL (60-115); Potassium 3.9 mmol/l (3.3-5.1); Sodium 140 mmol/L (135-145); Total Protein 5.7 g/dL (6.5-8.0)
[2019-12-09 23:15] LABS: Salicylate < 5.0 mg/dL (15-30)
[2019-12-09 23:23] VITALS: BP 104/69; PULSE 70; RESP 18; TEMP 36.6; O2SAT 98
[2019-12-09 23:30] LABS: Glucose, Whole Blood 81 mg/dL (60-115)
[2019-12-10] VITALS (7 sets, daily range): BP systolic 94–111; BP diastolic 59–71; PULSE 67–86; RESP 18–20; TEMP 19.5–37.2; O2SAT 98–100; BMI 23.8
--- NOTE | 2019-12-10 | ECG_ITS ---
Test Reason : CP Blood Pressure : / mmHG Vent. Rate : 075 BPM Atrial Rate : 075 BPM P-R Int : 150 ms QRS Dur : 074 ms QT Int : 412 ms P-R-T Axes : 068 028 053 degrees QTc Int : 460 ms Normal sinus rhythm Normal ECG When compared with ECG of 10-DEC-2019 11:22, No significant change was found Referred By: [facility] Electronically Signed By:WILMAN BRUNNER MD
[2019-12-10 03:34] LABS: Glucose, Whole Blood 101 mg/dL (60-115)
[2019-12-10] MEDS: LORazepam 0.5 MG TABLET 1 MG PO ×4 (03:56→23:36)
[2019-12-10 06:39] LABS: MANUAL DIFF FLAG NO
[2019-12-10] MEDS: 0.9 % Sodium Chloride 1,000 ML 100 ML IVCONT ×2 (06:47→16:50)
[2019-12-10 07:09] LABS: Anion Gap 11 (12-20); Blood Urea Nitrogen 10 mg/dL (9-16); Calcium 7.8 mg/dL (8.4-10.2); Carbon Dioxide 23 mmol/L (22-29); Chloride 110 mmol/L (96-108); Estimated Glomerular Filt Rate > 60; Glucose Random 112 mg/dL (60-115); Sodium 140 mmol/L (135-145)
[2019-12-10 07:16] LABS: Basophils Percent Auto 0.6 % (0-2); Eosinophils Absolute Auto 0.2 X10*3/uL (0.0-0.4); Eosinophils Percent Auto 3.1 % (0-4); Hematocrit 33.4 % (37-47); Hemoglobin 10.8 g/dl (12.0-16.0); Imm Gran Abs Auto 0.02 X10*3/uL (0.00-0.03); Imm Gran Pct Auto 0.4 % (0.0-0.4); Mean Corpuscular HGB Conc 32.3 g/dl (31.0-35.0); Mean Corpuscular Hemoglobin 31.5 pg (27.0-33.0); Mean Corpuscular Volume 97.4 fL (80-98); Mean Platelet Volume 10.4 fL (9.4-12.3); Monocytes Absolute Auto 0.5 X10*3/uL (0.1-1.2); Monocytes Percent Auto 9.9 % (2-11); Neutrophils Absolute Auto 2.1 X10*3/uL (2.0-8.3); Platelet Count 303 X10*3/uL (160-400); Red Blood Count 3.43 X10*6/uL (4.20-5.50); Red Cell Distribution Width 13.3 % (11.0-16.0); White Blood Count 4.9 X10*3/uL (4.8-10.8)
[2019-12-10] MEDS: Nicotine 14 MG PATCH.TD24 TRANSDERMA (08:15)
[2019-12-10] MEDS: 0.9 % Sodium Chloride Flush 3 ML SYRINGE IVFLUSH ×2 (08:15→20:27)
--- NOTE | 2019-12-10 09:10 | HO.PM.IMPN ---
Subjective Subjective Date of Service: 12/10/19 Interval History: Seen in follow-up for suicide attempt by beta-gio overdose. No event overnight. her heart rate has been stable no episodes of bradycardia. She is alert this morning versus that she is tired. Review of Systems No SI no chest pain, no dizzines Physical Exam Vital Signs: Vital Signs: Vital Signs Temp Pulse Resp BP Pulse Ox 12/10/19 07:36 67.1 F L 67 18 101/64 98 12/10/19 03:29 111/70 12/10/19 03:27 97.3 F 70 18 111/70 98 12/09/19 23:23 97.8 F 70 18 104/69 98 12/09/19 20:00 97.1 F 75 18 104/61 98 12/09/19 16:43 70 98/52 L 12/09/19 16:16 98.2 F 70 20 92/50 L 100 12/09/19 13:23 75 16 112/57 L 96 12/09/19 13:08 98.3 F 76 22 H 118/83 97 Body Mass Index 23.8 Constitutional Awake and Alert, No apparent distress Neck Supple, No lymphadenopathy Cardiovascular RRR, No M/R/G, S1 S2, No S3 S4, No pedal edema Respiratory Lungs clear, No respiratory distress Gastrointestinal Non tender, Non-distended Skin No rash Neurological Alert & oriented x3 Psychological Poor insight, Denies suicidal ideation at this time. Objective Data Current Medications Generic Name Dose Route Start Last Admin Trade Name Freq PRN Reason Stop Dose Admin Sodium Chloride 1,000 mls @ 100 mls/hr 12/09/19 19:35 12/10/19 06:47 Ns IVCONT 100 mls/hr .Q10H STEPHANIE Administration Lorazepam 1 mg 12/09/19 19:35 12/10/19 03:56 Lorazepam 0.5 Mg Tablet PO 1 mg Q6H PRN Administration withdrawal Nicotine 14 mg 12/09/19 19:35 12/10/19 08:15 Nicotine 14 Mg Patch.Td24 TRANSDERMA 14 mg DAILY STEPHANIE Administration Nicotine Polacrilex 2 mg 12/09/19 20:24 Nicotine Polacrilex 2 Mg Gum BUCCAL Q2H PRN Nicotine Cravings Sodium Chloride 3 ml 12/10/19 00:00 12/10/19 08:15 0.9 % Sodium Chloride Flush 3 Ml Syringe IVFLUSH 3 ml QSHIFT STEPHANIE Administration Labs CBC & Chem 7: 12/10/19 06:08 12/10/19 06:08 Assessment and Plan (1) Suicide attempt by beta gio overdose: Status: Acute Assessment and Plan: -Hold Inderal and other meds -BHN eval for inpatient Psych -Ativan PRN for anxity and possible withdrawal from drugs
--- NOTE | 2019-12-10 09:15 | PM.DS ---
DS: Providers Provider Date of admission: 12/09/19 17:27 Primary care physician: Unknown Physician Consults: 12/09/19 16:52 Consult to Crisis Stat Reason for consultation: intentional overdose with propanolol and remeron. depression. suicidal Has provider been notified: No 12/09/19 17:29 Consult for Sitter Routine Reason for consultation: intentional overdose 12/09/19 19:35 Consult to Physician Routine Consulting Provider: Janell Yost Reason for consultation: polysubstance abuse 12/10/19 07:53 Consult to Crisis Stat Reason for consultation: Suicial,overdose and medically ready to discharge Has provider been notified: Yes DS: Diagnosis Discharge Diagnosis (1) Suicide attempt by beta gio overdose: Status: Acute DS: Summary Hospital Course Hospital Course: HPI: 39-year-old female who presents to the emergency department after intentionally ingesting Remeron and propanolol. Patient reports she got in a fight with her mother and this prompted her to take a handful of propanolol and Remeron. She is less than forthcoming with the timing and amount of medication ingested. In the emergency department her labs were unremarkable EKG showed sinus rhythm at 66 beats per minute. On the monitor her heart rate remained in the 70s. Her blood pressure was on the softer side in the 90 systolic. Patient denied any chest pain, palpitations, shortness of breath. She reported feeling generalized weakness. She also reported feeling like she was starting to withdrawal from heroin and cocaine. Poison control was contacted and initially recommended glucagon but later called back and recommended observation only. This reason the decision was made to admit her to the hospital for close monitoring overnight. Hospial course: She was monitored on cardiac telemetry without any bradycardia, lowest pulse is 67 and Blood pressure has been stable. Will hod all Psych meds at this time. Status at Discharge Functional status at discharge: independent ambulation Overall status at discharge: patient is not back to baseline Time Spent with Patient Time attestation: Total time spent providing and/or coordinating discharge services: Time spent: Greater than 30 minutes Physical Exam Vital Signs: Vital Signs: Vital Signs Temp Pulse Resp BP Pulse Ox 12/10/19 07:36 67.1 F L 67 18 101/64 98 12/10/19 03:29 111/70 12/10/19 03:27 97.3 F 70 18 111/70 98 12/09/19 23:23 97.8 F 70 18 104/69 98 12/09/19 20:00 97.1 F 75 18 104/61 98 12/09/19 16:43 70 98/52 L 12/09/19 16:16 98.2 F 70 20 92/50 L 100 12/09/19 13:23 75 16 112/57 L 96 12/09/19 13:08 98.3 F 76 22 H 118/83 97 Body Mass Index 23.8 Constitutional Awake and Alert, No apparent distress Neck Supple, No lymphadenopathy Cardiovascular RRR, No M/R/G, S1 S2, No S3 S4, No pedal edema Respiratory Lungs clear, No respiratory distress Gastrointestinal Non tender, Non-distended Skin No rash Neurological Alert & oriented x3 Psychological poor insight and judgement DS: Data Data Completed and Pending Labs on day of discharge: Labs from last 24 hours 12/10/19 12/10/19 12/10/19 06:08 06:08 03:27 WBC 4.9 RBC 3.43 L Hgb 10.8 L Hct 33.4 L MCV 97.4 MCH 31.5 MCHC 32.3 RDW 13.3 Plt Count 303 MPV 10.4 Immature Gran % (Auto) 0.4 Neut % (Auto) 44.0 L Lymph % (Auto) 42.0 H [place] % (Auto) 9.9 Eos % (Auto) 3.1 Baso % (Auto) 0.6 Lymph # (Auto) 2.0 [place] # (Auto) 0.5 Eos # (Auto) 0.2 Baso # (Auto) 0.0 Abs Immat Gran (auto) 0.02 Absolute Neuts (auto) 2.1 Absolute Nucleated RBC 0.000 Nucleated RBC % (auto) 0.0 PT INR APTT Sodium 140 Potassium 4.0 Chloride 110 H Carbon Dioxide 23 Anion Gap 11 L BUN 10 Creatinine 0.67 Estim Creat Clear Calc 90.0 Estimated GFR > 60 POC Glucose 101 Random Glucose 112 Calcium 7.8 L Total Bilirubin Direct Bilirubin AST ALT Alkaline Phosphatase Total Protein Albumin Lipase Salicylates Acetaminophen Ethyl Alcohol 12/09/19 12/09/19 12/09/19 23:26 21:38 21:37 WBC 6.4 RBC 3.37 L Hgb 10.9 L Hct 32.6 L MCV 96.7 MCH 32.3 MCHC 33.4 RDW 13.3 Plt Count 334 MPV 9.8 Immature Gran % (Auto) 0.2 Neut % (Auto) 47.6 Lymph % (Auto) 40.7 H [place] % (Auto) 8.8 Eos % (Auto) 2.2 Baso % (Auto) 0.5 Lymph # (Auto) 2.6 [place] # (Auto) 0.6 Eos # (Auto) 0.1 Baso # (Auto) 0.0 Abs Immat Gran (auto) 0.01 Absolute Neuts (auto) 3.0 Absolute Nucleated RBC 0.000 Nucleated RBC % (auto) 0.0 PT INR APTT Sodium Potassium Chloride Carbon Dioxide Anion Gap BUN Creatinine Estim Creat Clear Calc Estimated GFR POC Glucose 81 Random Glucose Calcium Total Bilirubin Direct Bilirubin AST ALT Alkaline Phosphatase Total Protein Albumin Lipase Salicylates < 5.0 L Acetaminophen < 1 Ethyl Alcohol 12/09/19 12/09/19 12/09/19 21:37 21:37 20:55 WBC RBC Hgb Hct MCV MCH MCHC RDW Plt Count MPV Immature Gran % (Auto) Neut % (Auto) Lymph % (Auto) [place] % (Auto) Eos % (Auto) Baso % (Auto) Lymph # (Auto) [place] # (Auto) Eos # (Auto) Baso # (Auto) Abs Immat Gran (auto) Absolute Neuts (auto) Absolute Nucleated RBC Nucleated RBC % (auto) PT 12.3 INR 1.0 APTT 31.1 Sodium 140 Potassium 3.9 Chloride 108 Carbon Dioxide 24 Anion Gap 12 BUN 11 Creatinine 0.73 Estim Creat Clear Calc 82.6 Estimated GFR > 60 POC Glucose 89 Random Glucose 104 Calcium 7.9 L Total Bilirubin < 0.2 Direct Bilirubin < 0.2 AST 23 ALT 31 Alkaline Phosphatase 73 Total Protein 5.7 L Albumin 3.1 L D Lipase Salicylates Acetaminophen Ethyl Alcohol 12/09/19 12/09/19 12/09/19 14:16 14:16 14:16 WBC RBC Hgb Hct MCV MCH MCHC RDW Plt Count MPV Immature Gran % (Auto) Neut % (Auto) Lymph % (Auto) [place] % (Auto) Eos % (Auto) Baso % (Auto) Lymph # (Auto) [place] # (Auto) Eos # (Auto) Baso # (Auto) Abs Immat Gran (auto) Absolute Neuts (auto) Absolute Nucleated RBC Nucleated RBC % (auto) PT 12.1 INR 1.0 APTT 32.6 Sodium 137 Potassium 3.5 Chloride 103 Carbon Dioxide 27 Anion Gap 11 L BUN 9 Creatinine 0.78 Estim Creat Clear Calc 77.3 Estimated GFR > 60 POC Glucose Random Glucose 104 Calcium 8.9 Total Bilirubin < 0.2 Direct Bilirubin < 0.2 AST 25 ALT 36 H Alkaline Phosphatase 83 Total Protein 6.9 Albumin 3.9 Lipase 18 Salicylates < 5.0 L Acetaminophen < 1 Ethyl Alcohol < 10 12/09/19 14:16 WBC 8.2 RBC 3.92 L Hgb 12.5 Hct 37.0 MCV 94.4 MCH 31.9 MCHC 33.8 RDW 13.2 Plt Count 418 H MPV 9.4 Immature Gran % (Auto) 0.4 Neut % (Auto) 57.4 Lymph % (Auto) 32.5 [place] % (Auto) 6.6 Eos % (Auto) 2.7 Baso % (Auto) 0.4 Lymph # (Auto) 2.7 [place] # (Auto) 0.5 Eos # (Auto) 0.2 Baso # (Auto) 0.0 Abs Immat Gran (auto) 0.03 Absolute Neuts (auto) 4.7 Absolute Nucleated RBC 0.000 Nucleated RBC % (auto) 0.0 PT INR APTT Sodium Potassium Chloride Carbon Dioxide Anion Gap BUN Creatinine Estim Creat Clear Calc Estimated GFR POC Glucose Random Glucose Calcium Total Bilirubin Direct Bilirubin AST ALT Alkaline Phosphatase Total Protein Albumin Lipase Salicylates Acetaminophen Ethyl Alcohol Discharge Plan Discharge Patient Disposition: Xfer Psychiatric Hosp Referrals: Physician,Unknown [Primary Care Provider] - Discharge Medications: Held mirtazapine 45 mg tablet 45 mg PO BEDTIME RF: 0 Hold Instructions: Resume on 12/13/19. zolpidem 10 mg tablet 10 mg PO BEDTIME RF: 0 Hold Instructions: Resume on 12/13/19. duloxetine 60 mg capsule,delayed release(DR/EC) 60 mg PO DAILY RF: 0 Hold Instructions: Resume on 12/13/19. Discontinued propranolol 120 mg capsule,extended release 24 hr 120 mg PO DAILY RF: 0 Diet: advance to your usual diet Activity on Discharge: As tolerated Visit Report Forms: Patient Portal Discharge page Care Plan Goals: to receive the appropriate inpatient psychiatric treatment and prevent self-harm. Health Concerns: Self-harm by drug overdose of other methods Plan of Treatment: inpatient psych treatment. Hold medications for now.
--- NOTE | 2019-12-10 09:37 | MHC.CM.PN ---
IMM 12/10/19 Female 39 DX OD independent all functional mobility. BHN consult pending. DP transfer to INPT Psych.
--- NOTE | 2019-12-10 09:41 | PC.NURSE ---
0940- patient refused ordered EKG. advised on importance for test, patient adamant.hospitalist made aware.
--- NOTE | 2019-12-10 15:00 | PM.PSYCN ---
History of Present Illness Chief Complaint: Drug Overdose Reason for Consult: Addiction Consult Requesting physician: [facility] Discussed with referring provider: Yes Sources of Information: patient interviewed and chart reviewed HPI Narrative: Patient is a 39 year old female with history of OUD. Currently medically admitted following intentional overdose of propranolol in suicide attempt. Consult requested as patient was reporting opioid withdrawal sx and requesting medications Pt seen in room 467. Awake, eyes closed during entire interview. Minimal answers to questions. Did not appear to be uncomfortable to this ad writer, but patient reporting withdrawal sx such as restlessness, nausea, body aches. Attempted to discuss current use, treatment history etc., though patient minimally participated. She was able to state that she wanted to start methadone taper and stated that she received 40mg methadone 2 days ago at [facility] in [place] (unable to verify this). Past Psychiatric History: not reviewed but will be transferred to in psychiatric unit Medical Evaluation Reviewed: Yes Review of Systems Gastrointestinal: Reports nausea Musculoskeletal: Reports myalgias Reports system reviewed and no additional complaints, except as documented and Reports as per HPI [facility] Medical History (Updated 12/10/19 @ 15:24 by Janell Yost CNP) Anxiety Asthma Chronic pain Cocaine abuse Depression Heroin abuse Migraine Suicide attempt by beta gio overdose Tobacco dependence Tremor Surgical History (Updated 12/09/19 @ 17:56 by MARTÍN Culp) S/P total abdominal hysterectomy Diagnostics Vital Signs (24Hr): Vital Signs - 24 hr 12/09/19 16:16 12/09/19 16:43 12/09/19 20:00 Temperature 98.2 F 97.1 F Pulse Rate 70 70 75 Respiratory Rate 20 18 Blood Pressure 92/50 L 98/52 L 104/61 Pulse Oximetry 100 98 12/09/19 23:23 12/10/19 03:27 12/10/19 03:29 Temperature 97.8 F 97.3 F Pulse Rate 70 70 Respiratory Rate 18 18 Blood Pressure 104/69 111/70 111/70 Pulse Oximetry 98 98 12/10/19 07:36 12/10/19 11:17 12/10/19 14:52 Temperature 67.1 F L 97.6 F 98.9 F Pulse Rate 67 80 86 Respiratory Rate 18 18 20 Blood Pressure 101/64 110/63 94/61 Pulse Oximetry 98 98 98 Body Mass Index 23.8 Labs Results: 12/10/19 06:08 12/10/19 06:08 Labs: Laboratory Results - last 48 hr 12/09/19 12/09/19 12/09/19 14:16 14:16 14:16 WBC 8.2 RBC 3.92 L Hgb 12.5 Hct 37.0 MCV 94.4 MCH 31.9 MCHC 33.8 RDW 13.2 Plt Count 418 H MPV 9.4 Immature Gran % (Auto) 0.4 Neut % (Auto) 57.4 Lymph % (Auto) 32.5 [place] % (Auto) 6.6 Eos % (Auto) 2.7 Baso % (Auto) 0.4 Lymph # (Auto) 2.7 [place] # (Auto) 0.5 Eos # (Auto) 0.2 Baso # (Auto) 0.0 Abs Immat Gran (auto) 0.03 Absolute Neuts (auto) 4.7 Absolute Nucleated RBC 0.000 Nucleated RBC % (auto) 0.0 PT INR APTT Sodium 137 Potassium 3.5 Chloride 103 Carbon Dioxide 27 Anion Gap 11 L BUN 9 Creatinine 0.78 Estim Creat Clear Calc 77.3 Estimated GFR > 60 POC Glucose Random Glucose 104 Calcium 8.9 Total Bilirubin < 0.2 Direct Bilirubin < 0.2 AST 25 ALT 36 H Alkaline Phosphatase 83 Total Protein 6.9 Albumin 3.9 Lipase 18 Salicylates < 5.0 L Acetaminophen < 1 Ethyl Alcohol < 10 12/09/19 12/09/19 12/09/19 14:16 20:55 21:37 WBC RBC Hgb Hct MCV MCH MCHC RDW Plt Count MPV Immature Gran % (Auto) Neut % (Auto) Lymph % (Auto) [place] % (Auto) Eos % (Auto) Baso % (Auto) Lymph # (Auto) [place] # (Auto) Eos # (Auto) Baso # (Auto) Abs Immat Gran (auto) Absolute Neuts (auto) Absolute Nucleated RBC Nucleated RBC % (auto) PT 12.1 12.3 INR 1.0 1.0 APTT 32.6 31.1 Sodium Potassium Chloride Carbon Dioxide Anion Gap BUN Creatinine Estim Creat Clear Calc Estimated GFR POC Glucose 89 Random Glucose Calcium Total Bilirubin Direct Bilirubin AST ALT Alkaline Phosphatase Total Protein Albumin Lipase Salicylates Acetaminophen Ethyl Alcohol 12/09/19 12/09/19 12/09/19 21:37 21:37 21:38 WBC 6.4 RBC 3.37 L Hgb 10.9 L Hct 32.6 L MCV 96.7 MCH 32.3 MCHC 33.4 RDW 13.3 Plt Count 334 MPV 9.8 Immature Gran % (Auto) 0.2 Neut % (Auto) 47.6 Lymph % (Auto) 40.7 H [place] % (Auto) 8.8 Eos % (Auto) 2.2 Baso % (Auto) 0.5 Lymph # (Auto) 2.6 [place] # (Auto) 0.6 Eos # (Auto) 0.1 Baso # (Auto) 0.0 Abs Immat Gran (auto) 0.01 Absolute Neuts (auto) 3.0 Absolute Nucleated RBC 0.000 Nucleated RBC % (auto) 0.0 PT INR APTT Sodium 140 Potassium 3.9 Chloride 108 Carbon Dioxide 24 Anion Gap 12 BUN 11 Creatinine 0.73 Estim Creat Clear Calc 82.6 Estimated GFR > 60 POC Glucose Random Glucose 104 Calcium 7.9 L Total Bilirubin < 0.2 Direct Bilirubin < 0.2 AST 23 ALT 31 Alkaline Phosphatase 73 Total Protein 5.7 L Albumin 3.1 L D Lipase Salicylates < 5.0 L Acetaminophen < 1 Ethyl Alcohol 12/09/19 12/10/19 12/10/19 23:26 03:27 06:08 WBC 4.9 RBC 3.43 L Hgb 10.8 L Hct 33.4 L MCV 97.4 MCH 31.5 MCHC 32.3 RDW 13.3 Plt Count 303 MPV 10.4 Immature Gran % (Auto) 0.4 Neut % (Auto) 44.0 L Lymph % (Auto) 42.0 H [place] % (Auto) 9.9 Eos % (Auto) 3.1 Baso % (Auto) 0.6 Lymph # (Auto) 2.0 [place] # (Auto) 0.5 Eos # (Auto) 0.2 Baso # (Auto) 0.0 Abs Immat Gran (auto) 0.02 Absolute Neuts (auto) 2.1 Absolute Nucleated RBC 0.000 Nucleated RBC % (auto) 0.0 PT INR APTT Sodium Potassium Chloride Carbon Dioxide Anion Gap BUN Creatinine Estim Creat Clear Calc Estimated GFR POC Glucose 81 101 Random Glucose Calcium Total Bilirubin Direct Bilirubin AST ALT Alkaline Phosphatase Total Protein Albumin Lipase Salicylates Acetaminophen Ethyl Alcohol 12/10/19 06:08 WBC RBC Hgb Hct MCV MCH MCHC RDW Plt Count MPV Immature Gran % (Auto) Neut % (Auto) Lymph % (Auto) [place] % (Auto) Eos % (Auto) Baso % (Auto) Lymph # (Auto) [place] # (Auto) Eos # (Auto) Baso # (Auto) Abs Immat Gran (auto) Absolute Neuts (auto) Absolute Nucleated RBC Nucleated RBC % (auto) PT INR APTT Sodium 140 Potassium 4.0 Chloride 110 H Carbon Dioxide 23 Anion Gap 11 L BUN 10 Creatinine 0.67 Estim Creat Clear Calc 90.0 Estimated GFR > 60 POC Glucose Random Glucose 112 Calcium 7.8 L Total Bilirubin Direct Bilirubin AST ALT Alkaline Phosphatase Total Protein Albumin Lipase Salicylates Acetaminophen Ethyl Alcohol Mental Status Exam Mental Status Exam Level of Consciousness: Awake Patient Behavior: Uncooperative Mood Description: Withdrawn Affect Description: Withdrawn Speech Pattern: Clear Thought Process: Intact Thought Content: positive for [place] Judgement: Fair Medications Medications Current Medications Generic Name Dose Route Start Last Admin Trade Name Freq PRN Reason Stop Dose Admin Sodium Chloride 1,000 mls @ 100 mls/hr 12/09/19 19:35 12/10/19 06:47 Ns IVCONT 100 mls/hr .Q10H STEPHANIE Administration Lorazepam 1 mg 12/09/19 19:35 12/10/19 11:22 Lorazepam 0.5 Mg Tablet PO 1 mg Q6H PRN Administration withdrawal Nicotine 14 mg 12/09/19 19:35 12/10/19 08:15 Nicotine 14 Mg Patch.Td24 TRANSDERMA 14 mg DAILY STEPHANIE Administration Nicotine Polacrilex 2 mg 12/09/19 20:24 Nicotine Polacrilex 2 Mg Gum BUCCAL Q2H PRN Nicotine Cravings Sodium Chloride 3 ml 12/10/19 00:00 12/10/19 08:15 0.9 % Sodium Chloride Flush 3 Ml Syringe IVFLUSH 3 ml QSHIFT STEPHANIE Administration Allergies Allergies Allergy/AdvReac Type Severity Reaction Status Date / Time amoxicillin [AMOXICILLIN] Allergy Intermediate STOMACH Verified 12/07/19 17:58 UPSET, stomach pain and diarrhea trazodone [TRAZODONE] Allergy Intermediate UNKNOWN Verified 12/07/19 17:58 ketorolac [From TORADOL] Allergy Mild RASH Verified 12/07/19 17:58 Sulfa (Sulfonamide Allergy Mild GI UPSET Verified 12/07/19 17:58 Antibiotics) acetaminophen [Vicodin] Allergy Unknown Unknown Verified 12/07/19 17:58 magnesium [MAGNESIUM] Allergy Unknown UNKNOWN Verified 12/07/19 17:58 promethazine [From PHENERGAN] Allergy Unknown UNKNOWN Verified 12/07/19 17:58 quetiapine [Seroquel] Allergy Unknown Unknown Verified 12/07/19 17:58 tramadol [TRAMADOL] Allergy Unknown UNK Verified 12/07/19 17:58 zolpidem Allergy Unknown Unknown Verified 12/07/19 17:58 hydrocodone [From VICODIN] AdvReac Mild MIGRAINES Verified 12/07/19 17:58 metoclopramide [From REGLAN] AdvReac Unknown PT STATES Verified 12/07/19 17:58 GETTING SHAKY pregabalin [From LYRICA] AdvReac Unknown HALLUCINATI Verified 12/07/19 17:58 ONS Sulfacet-R Allergy Unknown Stomache Uncoded 02/19/19 00:00 pain and diarrhea Assessment & Plan Greater than 50% of the session was spent on counseling and/or coordination of care
--- NOTE | 2019-12-10 15:34 | P.CNPS_ITS ---
History of Present Illness Chief Complaint: Drug Overdose Reason for Consult: Addiction Consult HPI Narrative: patient is a 39 year old female with history of OUD, currently medically admitted following intentional overdose on prescribed propranolol. Consult requested to evaluate for MAT as patient was reporting withdrawal sx Pt seen in room 467. Awake, but kept eyes closed during interview. Minimal participation ininterview. Reporting she was using about 2 bundles QD of heroin. Reports she was recently on methadone taper in [place] and recieved last dose of 40mg 2 days ago (unable to verify this). Reporting withdrawal sx, restlessness, nausea, body aches. Of note, patient did not appear to be experiencing any discomfort during interview and had not reported any to RN prior to assessment. RN reported initial COWS score was a 2 Past Psychiatric History: not reviewed but will be transferred to in psychiatric unit Medical Evaluation Reviewed: Yes EKG reviewed Review of Systems Gastrointestinal: Denies diarrhea, Reports nausea and Denies vomiting Reports system reviewed and no additional complaints, except as documented and Reports as per HPI Psychiatric: Reports anxiety, Reports depression, Reports hopelessness and Reports irritability [facility] Medical History (Updated 12/10/19 @ 15:24 by Janell Yost CNP) Anxiety Asthma Chronic pain Cocaine abuse Depression Heroin abuse Migraine Suicide attempt by beta gio overdose Tobacco dependence Tremor Surgical History (Updated 12/09/19 @ 17:56 by MARTÍN Culp) S/P total abdominal hysterectomy Diagnostics Vital Signs (24Hr): Vital Signs - 24 hr 12/09/19 16:16 12/09/19 16:43 12/09/19 20:00 Temperature 98.2 F 97.1 F Pulse Rate 70 70 75 Respiratory Rate 20 18 Blood Pressure 92/50 L 98/52 L 104/61 Pulse Oximetry 100 98 12/09/19 23:23 12/10/19 03:27 12/10/19 03:29 Temperature 97.8 F 97.3 F Pulse Rate 70 70 Respiratory Rate 18 18 Blood Pressure 104/69 111/70 111/70 Pulse Oximetry 98 98 12/10/19 07:36 12/10/19 11:17 12/10/19 14:52 Temperature 67.1 F L 97.6 F 98.9 F Pulse Rate 67 80 86 Respiratory Rate 18 18 20 Blood Pressure 101/64 110/63 94/61 Pulse Oximetry 98 98 98 Body Mass Index 23.8 Labs Results: 12/10/19 06:08 12/10/19 06:08 Labs: Laboratory Results - last 48 hr 12/09/19 12/09/19 12/09/19 14:16 14:16 14:16 WBC 8.2 RBC 3.92 L Hgb 12.5 Hct 37.0 MCV 94.4 MCH 31.9 MCHC 33.8 RDW 13.2 Plt Count 418 H MPV 9.4 Immature Gran % (Auto) 0.4 Neut % (Auto) 57.4 Lymph % (Auto) 32.5 [place] % (Auto) 6.6 Eos % (Auto) 2.7 Baso % (Auto) 0.4 Lymph # (Auto) 2.7 [place] # (Auto) 0.5 Eos # (Auto) 0.2 Baso # (Auto) 0.0 Abs Immat Gran (auto) 0.03 Absolute Neuts (auto) 4.7 Absolute Nucleated RBC 0.000 Nucleated RBC % (auto) 0.0 PT INR APTT Sodium 137 Potassium 3.5 Chloride 103 Carbon Dioxide 27 Anion Gap 11 L BUN 9 Creatinine 0.78 Estim Creat Clear Calc 77.3 Estimated GFR > 60 POC Glucose Random Glucose 104 Calcium 8.9 Total Bilirubin < 0.2 Direct Bilirubin < 0.2 AST 25 ALT 36 H Alkaline Phosphatase 83 Total Protein 6.9 Albumin 3.9 Lipase 18 Salicylates < 5.0 L Acetaminophen < 1 Ethyl Alcohol < 10 12/09/19 12/09/19 12/09/19 14:16 20:55 21:37 WBC RBC Hgb Hct MCV MCH MCHC RDW Plt Count MPV Immature Gran % (Auto) Neut % (Auto) Lymph % (Auto) [place] % (Auto) Eos % (Auto) Baso % (Auto) Lymph # (Auto) [place] # (Auto) Eos # (Auto) Baso # (Auto) Abs Immat Gran (auto) Absolute Neuts (auto) Absolute Nucleated RBC Nucleated RBC % (auto) PT 12.1 12.3 INR 1.0 1.0 APTT 32.6 31.1 Sodium Potassium Chloride Carbon Dioxide Anion Gap BUN Creatinine Estim Creat Clear Calc Estimated GFR POC Glucose 89 Random Glucose Calcium Total Bilirubin Direct Bilirubin AST ALT Alkaline Phosphatase Total Protein Albumin Lipase Salicylates Acetaminophen Ethyl Alcohol 12/09/19 12/09/19 12/09/19 21:37 21:37 21:38 WBC 6.4 RBC 3.37 L Hgb 10.9 L Hct 32.6 L MCV 96.7 MCH 32.3 MCHC 33.4 RDW 13.3 Plt Count 334 MPV 9.8 Immature Gran % (Auto) 0.2 Neut % (Auto) 47.6 Lymph % (Auto) 40.7 H [place] % (Auto) 8.8 Eos % (Auto) 2.2 Baso % (Auto) 0.5 Lymph # (Auto) 2.6 [place] # (Auto) 0.6 Eos # (Auto) 0.1 Baso # (Auto) 0.0 Abs Immat Gran (auto) 0.01 Absolute Neuts (auto) 3.0 Absolute Nucleated RBC 0.000 Nucleated RBC % (auto) 0.0 PT INR APTT Sodium 140 Potassium 3.9 Chloride 108 Carbon Dioxide 24 Anion Gap 12 BUN 11 Creatinine 0.73 Estim Creat Clear Calc 82.6 Estimated GFR > 60 POC Glucose Random Glucose 104 Calcium 7.9 L Total Bilirubin < 0.2 Direct Bilirubin < 0.2 AST 23 ALT 31 Alkaline Phosphatase 73 Total Protein 5.7 L Albumin 3.1 L D Lipase Salicylates < 5.0 L Acetaminophen < 1 Ethyl Alcohol 12/09/19 12/10/19 12/10/19 23:26 03:27 06:08 WBC 4.9 RBC 3.43 L Hgb 10.8 L Hct 33.4 L MCV 97.4 MCH 31.5 MCHC 32.3 RDW 13.3 Plt Count 303 MPV 10.4 Immature Gran % (Auto) 0.4 Neut % (Auto) 44.0 L Lymph % (Auto) 42.0 H [place] % (Auto) 9.9 Eos % (Auto) 3.1 Baso % (Auto) 0.6 Lymph # (Auto) 2.0 [place] # (Auto) 0.5 Eos # (Auto) 0.2 Baso # (Auto) 0.0 Abs Immat Gran (auto) 0.02 Absolute Neuts (auto) 2.1 Absolute Nucleated RBC 0.000 Nucleated RBC % (auto) 0.0 PT INR APTT Sodium Potassium Chloride Carbon Dioxide Anion Gap BUN Creatinine Estim Creat Clear Calc Estimated GFR POC Glucose 81 101 Random Glucose Calcium Total Bilirubin Direct Bilirubin AST ALT Alkaline Phosphatase Total Protein Albumin Lipase Salicylates Acetaminophen Ethyl Alcohol 12/10/19 06:08 WBC RBC Hgb Hct MCV MCH MCHC RDW Plt Count MPV Immature Gran % (Auto) Neut % (Auto) Lymph % (Auto) [place] % (Auto) Eos % (Auto) Baso % (Auto) Lymph # (Auto) [place] # (Auto) Eos # (Auto) Baso # (Auto) Abs Immat Gran (auto) Absolute Neuts (auto) Absolute Nucleated RBC Nucleated RBC % (auto) PT INR APTT Sodium 140 Potassium 4.0 Chloride 110 H Carbon Dioxide 23 Anion Gap 11 L BUN 10 Creatinine 0.67 Estim Creat Clear Calc 90.0 Estimated GFR > 60 POC Glucose Random Glucose 112 Calcium 7.8 L Total Bilirubin Direct Bilirubin AST ALT Alkaline Phosphatase Total Protein Albumin Lipase Salicylates Acetaminophen Ethyl Alcohol Medications Medications Current Medications Generic Name Dose Route Start Last Admin Trade Name Freq PRN Reason Stop Dose Admin Sodium Chloride 1,000 mls @ 100 mls/hr 12/09/19 19:35 12/10/19 06:47 Ns IVCONT 100 mls/hr .Q10H STEPHANIE Administration Lorazepam 1 mg 12/09/19 19:35 12/10/19 11:22 Lorazepam 0.5 Mg Tablet PO 1 mg Q6H PRN Administration withdrawal Nicotine 14 mg 12/09/19 19:35 12/10/19 08:15 Nicotine 14 Mg Patch.Td24 TRANSDERMA 14 mg DAILY STEPHANIE Administration Nicotine Polacrilex 2 mg 12/09/19 20:24 Nicotine Polacrilex 2 Mg Gum BUCCAL Q2H PRN Nicotine Cravings Sodium Chloride 3 ml 12/10/19 00:00 12/10/19 15:26 0.9 % Sodium Chloride Flush 3 Ml Syringe IVFLUSH Not Given QSHIFT STEPHANIE Allergies Allergies Allergy/AdvReac Type Severity Reaction Status Date / Time amoxicillin [AMOXICILLIN] Allergy Intermediate STOMACH Verified 12/07/19 17:58 UPSET, stomach pain and diarrhea trazodone [TRAZODONE] Allergy Intermediate UNKNOWN Verified 12/07/19 17:58 ketorolac [From TORADOL] Allergy Mild RASH Verified 12/07/19 17:58 Sulfa (Sulfonamide Allergy Mild GI UPSET Verified 12/07/19 17:58 Antibiotics) acetaminophen [Vicodin] Allergy Unknown Unknown Verified 12/07/19 17:58 magnesium [MAGNESIUM] Allergy Unknown UNKNOWN Verified 12/07/19 17:58 promethazine [From PHENERGAN] Allergy Unknown UNKNOWN Verified 12/07/19 17:58 quetiapine [Seroquel] Allergy Unknown Unknown Verified 12/07/19 17:58 tramadol [TRAMADOL] Allergy Unknown UNK Verified 12/07/19 17:58 zolpidem Allergy Unknown Unknown Verified 12/07/19 17:58 hydrocodone [From VICODIN] AdvReac Mild MIGRAINES Verified 12/07/19 17:58 metoclopramide [From REGLAN] AdvReac Unknown PT STATES Verified 12/07/19 17:58 GETTING SHAKY pregabalin [From LYRICA] AdvReac Unknown HALLUCINATI Verified 12/07/19 17:58 ONS Sulfacet-R Allergy Unknown Stomache Uncoded 02/19/19 00:00 pain and diarrhea Assessment & Plan Assessment & Plan (1) Opioid use disorder: Status: Acute Code(s): F11.99 - Opioid use, unspecified with unspecified opioid-induced disorder Recommendations: * RN follow up eval and COWS now 12. * Methadone 15mg now * If necessary can have additional 5-10mg tonight if withdrawal sx not improved * Will follow up in AM to adjust taper dosing--plan for taper to be completed during psychiatric admission * f/u EKG in AM to ensure no changes with methadone dosing Greater than 50% of the session was spent on counseling and/or coordination of care
[2019-12-10 20:01] LABS: SARS COV2 PCR INHOUSE NEGATIVE (Negative)
[2019-12-10] MEDS: diphenhydrAMINE HCL 50 MG/ML VIAL 25 MG IVPUSH (20:26)
[2019-12-11] VITALS: PULSE 72
[2019-12-11] MEDS: 0.9 % Sodium Chloride 1,000 ML 100 ML IVCONT ×2 (01:55→16:37)
[2019-12-11 03:48] VITALS: PULSE 80; RESP 18; TEMP 36.4; O2SAT 99
[2019-12-11] MEDS: LORazepam 0.5 MG TABLET 1 MG PO ×3 (06:09→18:47)
--- NOTE | 2019-12-11 09:20 | HO.PM.IMPN ---
Subjective Subjective Date of Service: 12/11/19 Interval History: Seen in follow-up for suicide attempt by beta-gio overdose. No event overnight. her heart rate has been stable no episodes of bradycardia. She is alert this morning versus that she is tired. Physical Exam Vital Signs: Vital Signs: Vital Signs Temp Pulse Resp BP Pulse Ox 12/11/19 03:48 97.6 F 80 18 99 12/10/19 23:36 96.8 F 79 18 104/59 L 98 12/10/19 20:00 98.6 F 74 18 111/71 100 12/10/19 14:52 98.9 F 86 20 94/61 98 12/10/19 11:17 97.6 F 80 18 110/63 98 Body Mass Index 23.8 Const: Nutritional Appearance: well nourished Orientation/consciousness: patient oriented x3 HENMT: Head: Yes normocephalic and Yes atraumatic Eyes: Sclerae: sclerae normal Chest: Chest palpation & inspection: normal inspection of the chest Resp: Effort & Inspection: normal respiratory effort and no respiratory distress Auscultation: clear to auscultation bilaterally Cardio: Rate: regular rate Rhythm: regular rhythm GI: Palpation (GI): Soft to palpation and nontender Skin: General skin exam: no rashes or lesions noted Neuro: General: patient oriented x3 Cranial nerves: Yes CN's II-XII intact bilaterally and Yes Bilaterally intact EOM present Extrem: General: Yes normal to inspection Objective Data Current Medications Generic Name Dose Route Start Last Admin Trade Name Freq PRN Reason Stop Dose Admin Sodium Chloride 1,000 mls @ 100 mls/hr 12/09/19 19:35 12/11/19 01:55 Ns IVCONT 100 mls/hr .Q10H STEPHANIE Administration Lorazepam 1 mg 12/09/19 19:35 12/11/19 06:09 Lorazepam 0.5 Mg Tablet PO 1 mg Q6H PRN Administration withdrawal Nicotine 14 mg 12/09/19 19:35 12/10/19 08:15 Nicotine 14 Mg Patch.Td24 TRANSDERMA 14 mg DAILY STEPHANIE Administration Nicotine Polacrilex 2 mg 12/09/19 20:24 Nicotine Polacrilex 2 Mg Gum BUCCAL Q2H PRN Nicotine Cravings Sodium Chloride 3 ml 12/10/19 00:00 12/11/19 07:53 0.9 % Sodium Chloride Flush 3 Ml Syringe IVFLUSH Not Given QSHIFT STEPHANIE Labs CBC & Chem 7: 12/10/19 06:08 12/10/19 06:08 Assessment and Plan (1) Suicide attempt by beta gio overdose: Status: Acute (2) Opioid use disorder: Status: Acute Assessment and Plan: Awaiting inpatient Psych placement Ativan, clonidine for withdrawal symptoms, should consider Methadone or Suboxone on outpatient basis Restart Duloxitine and Remron Restart Propranolol at half home dose at 60 mg daily
[2019-12-11] MEDS: Nicotine 14 MG PATCH.TD24 TRANSDERMA (09:57)
[2019-12-11] MEDS: DULoxetine HCl 60 MG CAPSULE.DR PO (09:57)
--- NOTE | 2019-12-11 11:53 | P.EN_ITS ---
Event Note Event Note: Addiction follow up: Chart reviewed and patient seen Pt quite irritable this morning during interview, upset about not being able to sleep and varoud things that contributed to that. When asked about withdrawal sx, pt angry stating that methadone dose given yesterday was too little. Per documentation review, no reports of pt c/o withdrawal sx and COWS score documented as 2. This morning patient reporting that she has abdominal pain and wants to sleep. Denies nausea, restlessness, chills, body aches. Plan: * 15mg methadone given this AM * If pt c/o of withdrawal sx not being managed effectively, she can have an additional 5-10mg today to stabilize then taper could continue as planned on psychiatric unit. * Irritability may also be related to depression and disposition plan of inpt psych.
[2019-12-11 12:23] VITALS: BP 115/67; PULSE 78; RESP 16; TEMP 36; O2SAT 98
[2019-12-11 12:26] VITALS: BP 115/67; PULSE 78
[2019-12-11] MEDS: Propranolol HCL LA 60 MG CAP.SA.24H PO (12:26)
[2019-12-11] MEDS: ondansetron HCL 4 MG/2 ML VIAL IVPUSH (12:49)
--- NOTE | 2019-12-11 14:04 | MHC.CARE ---
[facility] CARE team conducted local inpatient bed search, [facility] have no available openings today. Spoke to patient in room 467 about plan of care to remain in place until M5 admission tomorrow, she is in agreement with waiting. Stated she does not want to be on a psychiatric unit, said she understood the reason she needs this treatment, asked the minimum of time she would need to be on the unit, discussed the CV and 3-day notice. Spoke to RN about patient staying on IMC another night, she will pass information to
[2019-12-11 20:00] VITALS: BP 116/59; PULSE 73; RESP 18; TEMP 36.3; O2SAT 98
[2019-12-11] MEDS: Nicotine Polacrilex 2 MG GUM BUCCAL (20:57)
[2019-12-11] MEDS: Zolpidem Tartrate 5 MG TABLET 10 MG PO (20:57)
[2019-12-11] MEDS: Mirtazapine 15 MG TABLET 45 MG PO (20:58)
--- NOTE | 2019-12-11 21:26 | PC.NURSE ---
Upon initial assessment, patient making this RN aware that she did not sleep at all the previous night. Reports she is feeling miserable . Patient asking if she can have a dose of ambien 10 mg which she normally takes at home. Patients chart listing that she currently has an allergy to ambien. This RN clarifying with patient. Patient reporting that she has never had an allergy to ambien and that she takes it every night at home. Chart updated. New orders for 10 mg PO ambien to be administered. Upon med pass. Patient having multiple complaints. Patient reporting that she is having difficulty voiding. Stating It hurts to pee, it feels like I am not able to empty my bladder the whole way. Patient also complaining that she broke her tooth (Upper LT [place]). Dr. Foley made aware of complaints. No new orders at this time. Will continue to monitor. Safety measures in place.
[2019-12-12] MEDS: 0.9 % Sodium Chloride 1,000 ML 100 ML IVCONT (02:15)
[2019-12-12 08:00] VITALS: BP 119/67; PULSE 77; RESP 18; TEMP 36.3; O2SAT 98
[2019-12-12] MEDS: Propranolol HCL LA 60 MG CAP.SA.24H PO (08:34)
[2019-12-12] MEDS: DULoxetine HCl 60 MG CAPSULE.DR PO (08:34)
[2019-12-12] MEDS: Nicotine 14 MG PATCH.TD24 TRANSDERMA (08:35)
[2019-12-12] MEDS: LORazepam 0.5 MG TABLET 1 MG PO ×2 (08:46→14:45)
[2019-12-12 10:58] VITALS: BP 131/74; PULSE 75; RESP 18; TEMP 36.6; O2SAT 98
--- NOTE | 2019-12-12 12:24 | MHC.CLN ---
F/U 100% PO DIET RX: REGULAR-APPROPRIATE ENSURE TID IN PLACE TO INCREASE KCALS FOLLOWING
--- NOTE | 2019-12-12 12:43 | MHC.CM.PN ---
Patient medically cleared for dc to Inpatient Psych. Per Laly/Care Team, Bed search is in progress. CM will continue to follow. is aware.
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
[2019-12-12] MEDS: Nicotine Polacrilex 2 MG GUM BUCCAL (13:51)
== END 2019-12-12 15:39 | DRG 918 ==
LOC: HO.ED 17:43 → HO.IMC 17:48
PROVIDERS: Physician Assistant; Physician Assistant Medical; Admitting Provider Internal Medicine; Emergency Provider Emergency Medicine; Visit Provider Psychiatry & Neurology Psychiatry
DX: T44.7X2A Poisoning by beta-adrenoreceptor antagonists, intentional self-harm, initial encounter (principal); F41.9 Anxiety disorder, unspecified; J45.909 Unspecified asthma, uncomplicated; Y92.009 Unspecified place in unspecified non-institutional (private) residence as the place of occurrence of the external cause; F19.10 Other psychoactive substance abuse, uncomplicated; F17.210 Nicotine dependence, cigarettes, uncomplicated; Z71.6 Tobacco abuse counseling; Z20.828 Contact with and (suspected) exposure to other viral communicable diseases; Z23 Encounter for immunization; Z88.0 Allergy status to penicillin; Z88.2 Allergy status to sulfonamides; Z88.5 Allergy status to narcotic agent; Z88.6 Allergy status to analgesic agent; Z79.899 Other long term (current) drug therapy
CPT/HCPCS: 36415; 80048; 80053; 80076; 80307; 80320; 81001; 81025; 82947; 83690; 85025; 85610; 85730; 87635; 90686; 93005; 96361; 96374; 99285; G0480; J1200; J2405; Q0163

== ENCOUNTER 2019-12-12 15:41 | Inpatient (IN) | payer MEDICARE, MEDICAID, SELFPAY ==
[2019-12-12 16:29] VITALS: BMI 24.0
[2019-12-12] MEDS: LORazepam 1 MG TABLET PO (17:25)
[2019-12-12] MEDS: hydrOXYzine HCL 25 MG TABLET PO (17:25)
[2019-12-12] MEDS: Nicotine Polacrilex 2 MG GUM BUCCAL (17:25)
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
--- NOTE | 2019-12-12 19:28 | PC.NURSE ---
signed cv then submitted 3 day notice
[2019-12-12] MEDS: HaloperidoL 5 MG TABLET PO (19:29)
[2019-12-12 19:32] VITALS: BP 128/88; PULSE 79; TEMP 36.6; O2SAT 99
[2019-12-12] MEDS: Mirtazapine 15 MG TABLET 45 MG PO (21:09)
[2019-12-12] MEDS: Zolpidem Tartrate 5 MG TABLET 10 MG PO (21:09)
[2019-12-13 06:00] VITALS: BP 90/54; PULSE 74; RESP 16; TEMP 36.3
[2019-12-13 07:57] LABS: MANUAL DIFF FLAG NO
[2019-12-13 08:11] LABS: Basophils Percent Auto 0.5 % (0-2); Eosinophils Absolute Auto 0.1 X10*3/uL (0.0-0.4); Eosinophils Percent Auto 2.3 % (0-4); Hematocrit 33.8 % (37-47); Hemoglobin 11.2 g/dl (12.0-16.0); Imm Gran Abs Auto 0.02 X10*3/uL (0.00-0.03); Imm Gran Pct Auto 0.3 % (0.0-0.4); Lymphocytes Absolute Auto 1.8 X10*3/uL (1.2-4.9); Lymphocytes Percent Auto 29.1 % (20-40); Mean Corpuscular HGB Conc 33.1 g/dl (31.0-35.0); Mean Corpuscular Hemoglobin 31.5 pg (27.0-33.0); Mean Corpuscular Volume 95.2 fL (80-98); Mean Platelet Volume 9.8 fL (9.4-12.3); Monocytes Absolute Auto 0.6 X10*3/uL (0.1-1.2); Monocytes Percent Auto 9.2 % (2-11); Neutrophils Absolute Auto 3.6 X10*3/uL (2.0-8.3); Neutrophils Percent Auto 58.6 % (45-73); Platelet Count 325 X10*3/uL (160-400); Red Blood Count 3.55 X10*6/uL (4.20-5.50); Red Cell Distribution Width 13.4 % (11.0-16.0); White Blood Count 6.2 X10*3/uL (4.8-10.8)
[2019-12-13] MEDS: Nicotine 14 MG PATCH.TD24 TRANSDERMA (08:22)
[2019-12-13] MEDS: DULoxetine HCl 60 MG CAPSULE.DR PO (08:23)
[2019-12-13] MEDS: LORazepam 1 MG TABLET PO ×3 (08:24→18:50)
[2019-12-13 08:29] VITALS: BP 138/77; PULSE 83
[2019-12-13] MEDS: Propranolol HCL LA 60 MG CAP.SA.24H PO (08:29)
[2019-12-13] MEDS: Nicotine Polacrilex 2 MG GUM BUCCAL ×5 (08:29→18:52)
[2019-12-13 08:36] LABS: Alanine Aminotransferase 62 U/L (0-31); Albumin Level 3.4 g/dL (3.5-5.0); Alkaline Phosphatase 71 U/L (39-117); Aspartate Amino Transferase 40 U/L (5-31); Bilirubin Total 0.3 mg/dL (0.0-1.0); Blood Urea Nitrogen 12 mg/dL (9-16); Calcium 8.5 mg/dL (8.4-10.2); Cholesterol 167 mg/dL; Creatinine Clr Calc Pharmacy 90.2; Estimated Glomerular Filt Rate > 60; Glucose Fasting 94 mg/dL (60-99); HDL Cholesterol 54 mg/dL; LDL Cholesterol Calculated 96 mg/dl; Total Protein 6.3 g/dL (6.5-8.0); Triglycerides 85 mg/dL
[2019-12-13 08:57] LABS: Anion Gap 11 (12-20); Carbon Dioxide 28 mmol/L (22-29); Chloride 104 mmol/L (96-108); Free T4 (Free Thyroxine) 0.77 ng/dL (0.71-1.85); Potassium 4.4 mmol/l (3.3-5.1); Sodium 139 mmol/L (135-145); Thyroid Stimulating Hormone 1.46 mIU/mL (0.32-4.0)
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
[2019-12-13] MEDS: methADONE HCl 10 MG TABLET 20 MG PO (10:03)
[2019-12-13] MEDS: HaloperidoL 5 MG TABLET PO ×2 (10:04→16:09)
[2019-12-13 11:09] LABS: Folate 8.1 ng/mL (> or = 4.0); Vitamin B12 409 pg/mL (200-900)
[2019-12-13] MEDS: hydrOXYzine HCL 25 MG TABLET PO (11:11)
[2019-12-13 13:00] VITALS: BP 125/65; PULSE 83; TEMP 36.4
[2019-12-13 18:00] VITALS: BP 125/65; PULSE 83; TEMP 36.4
[2019-12-13] MEDS: Mirtazapine 15 MG TABLET 45 MG PO (20:02)
[2019-12-13] MEDS: Zolpidem Tartrate 5 MG TABLET 10 MG PO (20:02)
[2019-12-13] MEDS: Benztropine Mesylate 1 MG TABLET PO (20:24)
[2019-12-13] MEDS: HaloperidoL 5 MG TABLET 10 MG PO (20:24)
[2019-12-14] MEDS: LORazepam 1 MG TABLET PO (07:18)
[2019-12-14] MEDS: Nicotine Polacrilex 2 MG GUM BUCCAL (07:18)
[2019-12-14 09:07] VITALS: BP 125/65; PULSE 83
[2019-12-14] MEDS: Nicotine 14 MG PATCH.TD24 TRANSDERMA (09:07)
[2019-12-14] MEDS: DULoxetine HCl 60 MG CAPSULE.DR PO (09:07)
[2019-12-14] MEDS: Propranolol HCL LA 60 MG CAP.SA.24H PO (09:07)
--- NOTE | 2019-12-14 09:28 | HO.PSYCHPN ---
Subjective Subjective Reason For Visit: OVERDOSE Diagnostics Vital Signs (24Hr): Vital Signs - 24 hr 12/13/19 13:00 12/13/19 18:00 12/14/19 09:07 Temperature 97.6 F 97.6 F Pulse Rate 83 83 83 Blood Pressure 125/65 125/65 125/65 Body Mass Index 24.0 Labs Results: 12/13/19 07:38 12/13/19 07:38 Labs: Laboratory Results - last 48 hr 12/13/19 12/13/19 12/13/19 07:38 07:38 07:38 WBC 6.2 RBC 3.55 L Hgb 11.2 L Hct 33.8 L MCV 95.2 MCH 31.5 MCHC 33.1 RDW 13.4 Plt Count 325 MPV 9.8 Immature Gran % (Auto) 0.3 Neut % (Auto) 58.6 Lymph % (Auto) 29.1 [place] % (Auto) 9.2 Eos % (Auto) 2.3 Baso % (Auto) 0.5 Lymph # (Auto) 1.8 [place] # (Auto) 0.6 Eos # (Auto) 0.1 Baso # (Auto) 0.0 Abs Immat Gran (auto) 0.02 Absolute Neuts (auto) 3.6 Absolute Nucleated RBC 0.000 Nucleated RBC % (auto) 0.0 Sodium 139 Potassium 4.4 Chloride 104 Carbon Dioxide 28 Anion Gap 11 L BUN 12 Creatinine 0.73 Estim Creat Clear Calc 90.2 Estimated GFR > 60 Fasting Glucose 94 Calcium 8.5 Total Bilirubin 0.3 AST 40 H D ALT 62 H Alkaline Phosphatase 71 Total Protein 6.3 L Albumin 3.4 L Triglycerides 85 Cholesterol 167 LDL Cholesterol, Calc 96 HDL Cholesterol 54 Vitamin B12 409 Folate 8.1 TSH 1.46 Free T4 0.77 Medications Medications Current Medications Generic Name Dose Route Start Last Admin Trade Name Freq PRN Reason Stop Dose Admin Benzocaine 1 appl 12/12/19 18:14 12/13/19 19:30 Benzocaine 10 % Oral Gel 9 Gm Tube MUCOUS MEM 1 appl TID PRN Administration Pain, Moderate (Pain Scale 4-6 Protocol Benztropine Mesylate 1 mg 12/13/19 14:05 Benztropine Mesylate 1 Mg Tablet PO RQ4H PRN Extrapyramidal Effects Duloxetine HCl 60 mg 12/13/19 09:00 12/14/19 09:07 Duloxetine Hcl 60 Mg Capsule.Dr PO 60 mg DAILY STEPHANIE Administration Haloperidol 5 mg 12/13/19 14:05 12/13/19 16:09 Haloperidol 5 Mg Tablet PO 5 mg Q4H PRN Administration Anxiety Hydroxyzine HCl 25 mg 12/12/19 17:07 12/13/19 11:11 Hydroxyzine Hcl 25 Mg Tablet PO 25 mg Q6H PRN Administration Anxiety Lorazepam 1 mg 12/12/19 16:05 12/14/19 07:18 Lorazepam 1 Mg Tablet PO 1 mg Q6H PRN Administration withdrawal Magnesium Hydroxide 30 ml 12/12/19 15:59 Milk Of Magnesia 30 Ml Oral.Susp PO DAILY PRN Constipation Methadone HCl 20 mg 12/14/19 09:10 Methadone Hcl 1 Mg/0.1 Ml Oral.Conc PO DAILY STEPHANIE Mirtazapine 45 mg 12/12/19 21:00 12/13/19 20:02 Mirtazapine 15 Mg Tablet PO 45 mg BEDTIME STEPHANIE Administration Nicotine 14 mg 12/13/19 09:00 12/14/19 09:07 Nicotine 14 Mg Patch.Td24 TRANSDERMA 14 mg DAILY STEPHANIE Administration Nicotine Polacrilex 2 mg 12/12/19 15:59 12/14/19 07:18 Nicotine Polacrilex 2 Mg Gum BUCCAL 2 mg Q2H PRN Administration Nicotine Cravings Propranolol HCl 60 mg 12/13/19 09:00 12/14/19 09:07 Propranolol Hcl La 60 Mg Cap.Sa.24h PO 60 mg DAILY STEPHANIE Administration Protocol Zolpidem Tartrate 10 mg 12/12/19 21:00 12/13/19 20:02 Zolpidem Tartrate 5 Mg Tablet PO 10 mg BEDTIME STEPHANIE Administration Allergies Allergies Allergy/AdvReac Type Severity Reaction Status Date / Time amoxicillin [AMOXICILLIN] Allergy Intermediate STOMACH Verified 12/07/19 17:58 UPSET, stomach pain and diarrhea trazodone [TRAZODONE] Allergy Intermediate UNKNOWN Verified 12/07/19 17:58 ketorolac [From TORADOL] Allergy Mild RASH Verified 12/07/19 17:58 Sulfa (Sulfonamide Allergy Mild GI UPSET Verified 12/07/19 17:58 Antibiotics) acetaminophen [Vicodin] Allergy Unknown Unknown Verified 12/07/19 17:58 magnesium [MAGNESIUM] Allergy Unknown UNKNOWN Verified 12/07/19 17:58 promethazine [From PHENERGAN] Allergy Unknown UNKNOWN Verified 12/07/19 17:58 quetiapine [Seroquel] Allergy Unknown Unknown Verified 12/07/19 17:58 tramadol [TRAMADOL] Allergy Unknown UNK Verified 12/07/19 17:58 hydrocodone [From VICODIN] AdvReac Mild MIGRAINES Verified 12/07/19 17:58 metoclopramide [From REGLAN] AdvReac Unknown PT STATES Verified 12/07/19 17:58 GETTING SHAKY pregabalin [From LYRICA] AdvReac Unknown HALLUCINATI Verified 12/07/19 17:58 ONS Sulfacet-R Allergy Unknown Stomache Uncoded 02/19/19 00:00 pain and diarrhea Assessment & Plan Greater than 50% of the session was spent on counseling and/or coordination of care
[2019-12-14 09:40] VITALS: BP 107/50; PULSE 66; TEMP 36.3; O2SAT 97
--- NOTE | 2019-12-14 14:41 | P.DS_ITS ---
DS: Providers Provider Date of admission: 12/12/19 15:41 Primary care physician: Unknown Physician Attending physician on admission: Billie Odonnell Attending physician on discharge: Billie Odonnell Anticipated date of discharge: 12/14/19 DS: Diagnosis Discharge Diagnosis (1) Opioid use disorder: Status: Acute (2) Major depressive disorder, recurrent severe without psychotic features: Status: Acute (3) Suicide attempt by beta gio overdose: Status: Acute Discharge Plan Discharge Patient Disposition: Home, Self-Care Referrals: Dr. Mejia (psychiatrist) [Other] - 01/01/20 12:15 pm [facility] (methadone clinic) [Other] (Call after 1pm today (12/14/19) and ask for [facility] to get set up at clinic for dose) Physician,Unknown [Primary Care Provider] - (PT REFUSED TO SIGN RELEASES OR TO LET T/W FIND A PCP) Discharge Medications: New methadone [Methadose] 10 mg/mL Concentrate 20 mg PO DAILY Qty: 1 RF: 0 zolpidem 5 mg Tablet 10 mg PO BEDTIME Qty: 30 RF: 0 Continued propranolol 60 mg capsule,extended release 24 hr 60 mg PO DAILY Qty: 30 RF: 0 mirtazapine 45 mg tablet 45 mg PO BEDTIME Qty: 30 RF: 0 zolpidem 10 mg tablet 10 mg PO BEDTIME Qty: 30 RF: 0 duloxetine 60 mg capsule,delayed release(DR/EC) 60 mg PO DAILY Qty: 30 RF: 0 Discharge Orders: Discharge Order (Routine); Ordered 12/14/19 Ordered By: Billie Odonnell Diet: advance to your usual diet Activity on Discharge: As tolerated Stand Alone Forms: Community Support Discharge Date/Time: 12/14/19 13:10 Visit Report Forms: Patient Portal Discharge page Care Plan Goals: Stay sober Reduce depression Health Concerns: Substance abuse Plan of Treatment: Work with pyridine recovery operator Larua at [facility] Continue to see Dr. Roberto HANNA at Methadone clinic Mental Status Exam Mental Status Exam Patient Appearance: Well Grooomed Patient Orientation: Person, Place and Time Level of Consciousness: Awake Patient Behavior: Appropriate and Cooperative Mood Description: Calm Affect Description: Calm Patient Cognition Impaired: No Ability to Follow Directions: Excellent Speech Pattern: Clear Memory Description: Intact Hallucinations: None Delusions: Not Present Thought Process: Intact Thought Content: positive for [place], positive for Circumstantial, negative for Suicidal Ideation and negative for Homicidal Ideation Judgement: Good Data Data Completed and Pending Completed studies during hospitalization [Text1]: 12/13/19 12/13/19 12/13/19 07:38 07:38 07:38 WBC 6.2 RBC 3.55 L Hgb 11.2 L Hct 33.8 L MCV 95.2 MCH 31.5 MCHC 33.1 RDW 13.4 Plt Count 325 MPV 9.8 Immature Gran % (Auto) 0.3 Neut % (Auto) 58.6 Lymph % (Auto) 29.1 [place] % (Auto) 9.2 Eos % (Auto) 2.3 Baso % (Auto) 0.5 Lymph # (Auto) 1.8 [place] # (Auto) 0.6 Eos # (Auto) 0.1 Baso # (Auto) 0.0 Abs Immat Gran (auto) 0.02 Absolute Neuts (auto) 3.6 Absolute Nucleated RBC 0.000 Nucleated RBC % (auto) 0.0 Sodium 139 Potassium 4.4 Chloride 104 Carbon Dioxide 28 Anion Gap 11 L BUN 12 Creatinine 0.73 Estim Creat Clear Calc 90.2 Estimated GFR > 60 Fasting Glucose 94 Calcium 8.5 Total Bilirubin 0.3 AST 40 H D ALT 62 H Alkaline Phosphatase 71 Total Protein 6.3 L Albumin 3.4 L Triglycerides 85 Cholesterol 167 LDL Cholesterol, Calc 96 HDL Cholesterol 54 Vitamin B12 409 Folate 8.1 TSH 1.46 Free T4 0.77 DS: Summary Hospital Course Hospital Course: 39 year old woman who was admitted to after being referred by CARE team who evaluated her on the medical floor. She had been admitted to medicine S/P polysubstance OD. She had been evaluated in the ER the day before the OD, but had been recommended to go to an EATS. Instead she went home, continued to have conflict with her mother, and took an OD. She had an uncomplicated medical course and a delay in admission to due to there being no beds available. While on the medical floor she had an addiction consult and she was started on methadone. Mara reports that she has had a lot of conflict with her mother. She feels that she demeans her and devalues her. Mara has only supervised visits with her son, and as result of the conflict with her mother several of these have not been possible. She reports that she took the OD impulsively out of anger and that she wanted to show my mother . She had no intent to try to kill herself. She reports that she did relapse on drugs and she plans to work toward sobriety. She feels very connected to her psychiatrist, Cristino Mejia and she feels that he helps her a great deal. On arrival to she stated that she feels well, and that she does not think she needs to be in the hospital Past Psychiatric History: M5 2016 Cristino Mejia is her psychiatrist Attends [facility] for treatment and has a therapist there For the rest of the details please refer to the admission note. Hospital Course Mara was admitted on a CV. She submited a 3 day notice. She was continued on the same medication she was on when she was admitted since she was largely stable. She had a meeting with her mother and was able to talk through some of the difficulties she was having. She had no SI and she was committed to sobriety and to treatment. Time Spent with Patient Time attestation: Total time spent providing and/or coordinating discharge services:
== END 2019-12-14 13:10 | disposition home or self-care (01) | DRG 885 ==
PROVIDERS: Admitting Provider Psychiatry & Neurology Psychiatry; Visit Provider Psychiatry & Neurology Psychiatry
DX: F33.2 Major depressive disorder, recurrent severe without psychotic features (principal); R45.851 Suicidal ideations; F11.20 Opioid dependence, uncomplicated; F41.9 Anxiety disorder, unspecified; G43.909 Migraine, unspecified, not intractable, without status migrainosus; F17.210 Nicotine dependence, cigarettes, uncomplicated; Z71.6 Tobacco abuse counseling; Z91.5 Personal history of self-harm; Z88.2 Allergy status to sulfonamides; Z88.5 Allergy status to narcotic agent; Z79.899 Other long term (current) drug therapy
CPT/HCPCS: 36415; 80053; 80061; 82607; 82746; 84439; 84443; 85025

== ENCOUNTER 2019-12-15 14:42 | Emergency (ER) | payer MEDICARE, MEDICAID, SELFPAY ==
[2019-12-15 15:46] VITALS: BP 119/78; PULSE 83; RESP 18; TEMP 36.9; O2SAT 96; BMI 25.4
--- NOTE | 2019-12-15 15:48 | CT_ITS ---
EXAMINATION: CT ABDOMEN AND PELVIS WITH CONTRAST CLINICAL INFORMATION: Left lower quadrant pain. Nausea and vomiting. Urinary retention COMPARISON: Portions of a previous CT 01/05/18 TECHNIQUE: Multidetector volumetric images were obtained from the superior aspect of the liver through the pubic symphysis following administration 85 mL of Omnipaque 350 intravenous contrast. Sagittal and coronal reformatted images were obtained on the technologist's workstation. Oral contrast: No This CT examination was performed using dose optimization techniques as appropriate, variously including the following: *Automated exposure control *Adjustment of mA and/or kV according to patient size (this includes techniques or standardized protocols for targeted exams where dose is matched to indication/reason for exam; i.e. extremities or head) *Use of iterative reconstruction technique DLP: 483 mGy-cm FINDINGS: LUNG BASES: The visualized lung bases are abnormal. There is some mosaic attenuation with some probable scattered areas of air trapping. This is nonspecific but was not present on 01/05/18. There is an unchanged micronodule in the lateral segment of the middle lobe which does not require any further evaluation. LIVER, GALLBLADDER, AND BILIARY TREE: The liver is markedly heterogeneous. There is patchy enhancement. There is some periportal tracking. This is nonspecific but hepatitis or congestion could give this appearance. The right lobe the liver measures 19.3 cm which is 1 standard deviation above the mean expected. There is no calcified gallstone. There is no biliary dilation. PANCREAS: No pancreatic mass or localized peripancreatic collection. SPLEEN: No suspicious abnormality. The spleen measures 10.6 cm which is within normal limits. ADRENAL GLANDS: Normal KIDNEYS AND URETERS: There is nonrotation of the right kidney which is normal variant. This is unchanged. No definite dilation of the collecting system. The nephrograms are homogeneous and symmetric. There is a punctate calcification in the upper pole of the right kidney. There are some punctate calcifications in the deep pelvis which may be phleboliths. These appear unchanged. BLADDER: No suspicious abnormality. GASTROINTESTINAL TRACT: The rectum and sigmoid are not well distended. There is no definite evidence of an abscess. There could be some muscular thickening. Retained material in the proximal colon. No convincing CT evidence of acute appendicitis. ABDOMINAL WALL: No significant hernia is appreciated. LYMPH NODES: No enlarged abdominal or pelvic lymph nodes. No significant free intraperitoneal fluid. VASCULAR: There is no abdominal aortic aneurysm. The portal vein enhances. PELVIC VISCERA: Previous hysterectomy. There are probable cysts in each ovary. The right ovary measures approximately 3.4 cm. OSSEOUS STRUCTURES: Soft tissue ossifications ventral to the right hip. No definite bone destruction. CT/CT abdomen pelvis w con IMPRESSION: Heterogeneous enlarged liver. This is nonspecific and could be related to hepatitis or congestion. There is no abscess or evidence of bowel obstruction. Nonobstructing punctate right renal calculi. The lung bases are abnormal but nonspecific. There is mosaic attenuation with some air trapping. Correlate with any history of immune compromised state.
--- NOTE | 2019-12-15 16:05 | ED_ITS ---
HPI - General Adult General Chief complaint: General Medical Stated complaint: multiple complaints Time Seen by Provider: 12/15/19 15:36 Source: patient Mode of arrival: ambulatory Limitations: no limitations History of Present Illness HPI narrative: 39yoF c PMHx of substance dependent, anxiety, depression, migraine headaches and asthma presenting to the ED with complaints of left lower quadrant abdominal pain with associated nausea/vomiting and urinary retention for the past few days worse today. Patient also reports ?charley horses to my lower legs?. Reports that she was recently admitted and discharged for intentional overdose. Denies any recent ingestion of any substances. Denies any SI/HI/auditory or visual hallucinations or thoughts of self injury at this time. Denies any additional complaints or concerns at this time. Related Data Previous Rx's Medication Instructions Recorded duloxetine 60 mg PO DAILY #30 cap 12/14/19 methadone [Methadose] 20 mg PO DAILY #1 ml 12/14/19 mirtazapine 45 mg PO BEDTIME #30 tab 12/14/19 propranolol 60 mg PO DAILY #30 cap 12/14/19 zolpidem 10 mg PO BEDTIME #30 tab 12/14/19 zolpidem 10 mg PO BEDTIME #30 tab 12/14/19 Allergies Allergy/AdvReac Type Severity Reaction Status Date / Time amoxicillin [AMOXICILLIN] Allergy Intermediate STOMACH Verified 12/15/19 15:45 UPSET, stomach pain and diarrhea trazodone [TRAZODONE] Allergy Intermediate UNKNOWN Verified 12/15/19 15:45 ketorolac [From TORADOL] Allergy Mild RASH Verified 12/15/19 15:45 Sulfa (Sulfonamide Allergy Mild GI UPSET Verified 12/15/19 15:45 Antibiotics) acetaminophen [Vicodin] Allergy Unknown Unknown Verified 12/15/19 15:45 magnesium [MAGNESIUM] Allergy Unknown UNKNOWN Verified 12/15/19 15:45 promethazine [From PHENERGAN] Allergy Unknown UNKNOWN Verified 12/15/19 15:45 quetiapine [Seroquel] Allergy Unknown Unknown Verified 12/15/19 15:45 tramadol [TRAMADOL] Allergy Unknown UNK Verified 12/15/19 15:45 hydrocodone [From VICODIN] AdvReac Mild MIGRAINES Verified 12/15/19 15:45 metoclopramide [From REGLAN] AdvReac Unknown PT STATES Verified 12/15/19 15:45 GETTING SHAKY pregabalin [From LYRICA] AdvReac Unknown HALLUCINATI Verified 12/15/19 15:45 ONS Sulfacet-R Allergy Unknown Stomache Uncoded 02/19/19 00:00 pain and diarrhea Review of Systems Review of Systems: Constitutional : No Weight loss, No Fever, No Chills, No Night Sweats, No Fatigue, No Malaise ENT/Mouth: No ear pain, No sore throat, No Difficulty swallowing Cardiovascular : No Chest Pain, No SOB, No Dyspnea on Exertion, No Orthopnea, No Edema, No Palpitations Respiratory : No Cough, No Sputum, No Wheezing, No Dyspnea Gastrointestinal : + Nausea, + Vomiting, No Diarrhea, + abdominal Pain, No Hematochezia, No Melena Genitourinary : No irregular bleeding, No Dysuria, No Urinary Frequency, No Hematuria, No Urinary Incontinence, No Urgency, No Flank Pain Musculoskeletal : + joint pain, No Myalgias, No Joint Swelling Skin : No Skin Lesions, No rash Neuro : No Weakness, No Numbness, No Paresthesias, No Loss of Consciousness, No Dizziness, No Headache Psych : NO SI/HI/AVH or thoughts of self-injury, No Social Issues, Heme/Lymph: No Bruising, No Bleeding,No Lymphadenopathy Endocrine : No Polyuria, No Polydipsia, No Temperature Intolerance Yes all other systems are reviewed and are negative [facility] Past Medical History Attestation statement: The following information was validated with the patient. Medical History Anxiety Asthma Chronic pain Cocaine abuse Depression Heroin abuse Migraine Suicide attempt by beta gio overdose Tobacco dependence Tremor Surgical History S/P total abdominal hysterectomy Social History Social History Household Members: None Housing: Apartment Alcohol intake: current Alcohol intake frequency: 3 or more drinks per day Smoking Status: Current every day smoker Tobacco Type: Cigarette Packs Per Day: 1 Cigarettes Per Day: 20.0 Years Smoked: 23 years Second Hand Smoke Exposure: Yes Substance Use Type: Crack/Cocaine and Heroin Advance Directives: No Advance Directives Information Provided: No service: No Current occupational status: employed Sexual orientation: Don't Know Physical Exam 2 Vital Signs: Vital Signs: Vital Signs Temp Pulse Resp BP Pulse Ox 12/15/19 15:46 98.4 F 83 18 119/78 96 Body Mass Index 25.4 vital signs have been reviewed as normal and appeared to be correct. Blood pressure normal. Heart rate normal. Respiration rate normal. Temperature normal. Oxygen saturation normal. Appearance: Alert. Oriented X3. No acute distress. Head: Normal external exam. Normocephalic. Atraumatic. No Nickerson signs noted. No raccoon eyes noted Eyes: PERRLA. EOMI. Conjunctiva and sclera normal. Eyelids normal. ENT: EAC normal. TM's Normal. Pharynx normal. Uvula midline. Moist mucous membr anes. No trismus noted. No drooling noted. No muffled voice noted. Neck: Normal inspection. Neck supple. FROM. No adenopathy. Thyroid Normal. No meningeal signs. No neck mass noted. CVS: Normal heart rate and rhythm. Heart sound normal. No murmurs noted. Pulses normal throughout. Respiratory: No respiratory distress. Painless inspiration. Breath sounds normal. No wheezes/rales/rhonchi noted. Chest nontender. No accessory muscle usage noted or decreased air movement noted. Abdomen: Soft and TTP of LLQ. Bowel sounds normal in all 4 quadrants. No distention noted. No organomegaly noted. No visible injury noted. Back: No CVA tenderness. Full range of motion noted. Skin: Skin warm and dry. Normal skin color. Normal skin turgor. No rashes/lesions/lacerations noted. Extremities: No lower extremity edema. Extremities exhibit normal range of motion. Extremities nontender. Neuro: Oriented X 3. No motor deficit. No sensory deficit. Reflexes normal. Course Course Course Narrative: 15:44PM 39yoF c PMHx of substance dependent, anxiety, depression, migraine headaches and asthma presenting to the ED with complaints of left lower quadrant abdominal pain with associated nausea/vomiting and urinary retention for the past few days worse today. Patient also reports ?charley horses to my lower legs?. Reports that she was recently admitted and discharged for intentional overdose. Denies any recent ingestion of any substances. Denies any SI/HI/auditory or visual hallucinations or thoughts of self injury at this time. Denies any additional complaints or concerns at this time. - Concern for diverticulitis vs UTI vs pyelo - Plan: Labs, CT scan of abd/pelvis c IV contrast. Provide IV fluids and 4 mg of Zofran and re-evaluate. Discharge Plan Discharge Prescriptions: No Action methadone [Methadose] 10 mg/mL Concentrate 20 mg PO DAILY Qty: 1 RF: 0 zolpidem 5 mg Tablet 10 mg PO BEDTIME Qty: 30 RF: 0 propranolol 60 mg capsule,extended release 24 hr 60 mg PO DAILY Qty: 30 RF: 0 mirtazapine 45 mg tablet 45 mg PO BEDTIME Qty: 30 RF: 0 zolpidem 10 mg tablet 10 mg PO BEDTIME Qty: 30 RF: 0 duloxetine 60 mg capsule,delayed release(DR/EC) 60 mg PO DAILY Qty: 30 RF: 0
[2019-12-15 16:18] VITALS: BP 103/48; PULSE 80; RESP 96; TEMP 37.2; O2SAT 98
[2019-12-15 17:02] LABS: Glucose Urine UA NEG (NEG); Leukocyte Esterase Urine NEG (NEG); Nitrite Urine NEG (NEG); Urine Blood NEG (NEG); Urine Ketones 5 MG/DL (NEG); Urine Protein NEG (NEG-TRACE)
[2019-12-15 17:03] LABS: INTERNATIONAL NORM RATIO 1.1 (0.9-1.1); Prothrombin Time 12.8 SEC (10.8-13.0)
[2019-12-15 17:05] LABS: Appearance Urine CLEAR; Color Urine YELLOW
[2019-12-15 17:06] LABS: UPreg QC Valid YES; Urine Pregnancy NEGATIVE (NEGATIVE)
[2019-12-15 17:26] LABS: MANUAL DIFF FLAG NO
[2019-12-15 17:27] LABS: Basophils Percent Auto 0.3 % (0-2); Eosinophils Percent Auto 0.3 % (0-4); Hematocrit 35.6 % (37-47); Hemoglobin 12.3 g/dl (12.0-16.0); Imm Gran Abs Auto 0.04 X10*3/uL (0.00-0.03); Imm Gran Pct Auto 0.4 % (0.0-0.4); Lymphocytes Absolute Auto 0.9 X10*3/uL (1.2-4.9); Lymphocytes Percent Auto 8.5 % (20-40); Mean Corpuscular HGB Conc 34.6 g/dl (31.0-35.0); Mean Corpuscular Hemoglobin 31.9 pg (27.0-33.0); Mean Corpuscular Volume 92.2 fL (80-98); Mean Platelet Volume 9.3 fL (9.4-12.3); Monocytes Absolute Auto 0.8 X10*3/uL (0.1-1.2); Monocytes Percent Auto 7.5 % (2-11); Platelet Count 375 X10*3/uL (160-400); Red Blood Count 3.86 X10*6/uL (4.20-5.50); Red Cell Distribution Width 13.6 % (11.0-16.0); White Blood Count 10.9 X10*3/uL (4.8-10.8)
[2019-12-15] MEDS: ondansetron HCL 4 MG/2 ML VIAL IVPUSH (17:34)
[2019-12-15] MEDS: 0.9 % Sodium Chloride 1,000 ML 999 ML IVCONT (17:35)
--- NOTE | 2019-12-15 17:47 | PC.NURSE ---
HAD BEEN ASKING FOR PAIN MEDICATION BUT NOW HAS FALLEN ASLEEP. 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
[2019-12-15 17:52] LABS: Anion Gap 14 (12-20); Blood Urea Nitrogen 19 mg/dL (9-16); Carbon Dioxide 25 mmol/L (22-29); Chloride 96 mmol/L (96-108); Creatinine Clr Calc Pharmacy 86.4; Estimated Glomerular Filt Rate > 60; Glucose Random 105 mg/dL (60-115); Potassium 4.5 mmol/l (3.3-5.1); Sodium 130 mmol/L (135-145)
[2019-12-15 17:54] LABS: Alanine Aminotransferase 88 U/L (0-31); Albumin Level 4.2 g/dL (3.5-5.0); Alkaline Phosphatase 92 U/L (39-117); Aspartate Amino Transferase 49 U/L (5-31); Bilirubin Direct 0.3 mg/dL (0.0-0.5); Bilirubin Total 0.7 mg/dL (0.0-1.0); Total Protein 7.5 g/dL (6.5-8.0)
[2019-12-15 17:56] LABS: Magnesium 2.1 mg/dL (1.6-2.6)
[2019-12-15] MEDS: iohexoL 350 MG/ML 100 ML INFUS..BTL IV (18:26)
--- NOTE | 2019-12-15 19:45 | PC.NURSE ---
REFUSED VS FOR PCT AT DC
== END 2019-12-15 19:52 | disposition home or self-care (01) ==
PROVIDERS: Physician Assistant Medical; Emergency Provider Emergency Medicine
DX: F33.1 Major depressive disorder, recurrent, moderate (principal); R45.851 Suicidal ideations; R10.32 Left lower quadrant pain; R33.9 Retention of urine, unspecified; F11.10 Opioid abuse, uncomplicated; Z79.899 Other long term (current) drug therapy; F17.200 Nicotine dependence, unspecified, uncomplicated; Z71.6 Tobacco abuse counseling
CPT/HCPCS: 36415; 74177; 80048; 80076; 81003; 81025; 83735; 85025; 85610; 96361; 96374; 99284; J2405

== ENCOUNTER 2019-12-16 18:21 | Emergency (ER) | payer MEDICARE, MEDICAID, SELFPAY ==
[2019-12-16 18:23] VITALS: BP 149/87; PULSE 82; RESP 17; TEMP 37.6; O2SAT 98; BMI 25.0
--- NOTE | 2019-12-16 18:30 | PC.NURSE ---
SPOKE WITH PT. C/O LEG PAIN, HEAD PAIN, KIDNEY PAIN. RECENTLY DISCHARGED. REQUESTED HELP WITH PAIN. STATES SHE IS ALLERGIC TO MOST PAIN MEDICINE, THAT SHE HAS A HIGH TOELRANCE. THROUGHOUT INTERACTION PATIENT STANDING STRAIGHT, GAIT OBSERVED TO BE STEADY, AMBULATING INDEPENDENTLY.
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
--- NOTE | 2019-12-16 20:31 | PC.NURSE ---
NUMEROUS REQUESTS FROM OTHER STAFF REQUESTING THIS NEON SIGN MAKER ATTEND TO PT, WHILE THIS NEON SIGN MAKER OCCUPIED WITH OTHERS. APPROACHED PT WITH MEDICINE PRESCRIBED. PT ON HER PHONE STATING CAN I LEAVE NOW? I DON'T WANT WHATEVER YOU'RE GIVING ME. YOU GAVE ME WATER AND THAT'S IT. CAN I GO
[2019-12-16] MEDS: LORazepam 1 MG TABLET 2 MG PO (20:35)
--- NOTE | 2019-12-16 20:36 | PC.NURSE ---
PT DENIED SI/HI DURING INITIAL ASSESSMENT
--- NOTE | 2019-12-16 21:36 | PC.NURSE ---
PT WAS APPROACHED TO DISCUSS POSSIBLE [facility]OUNDATION RELATIONS DIRECTOR TO BE OFFERED. PT STATED NO I'M DONE I WANNA LEAVE . PT THEN PROCEEDED TO GATHER HER BELONGINGS AND EXIT TO THE WAITING ROOM.
== END 2019-12-16 21:37 | disposition left against medical advice (07) ==
PROVIDERS: Emergency Provider Emergency Medicine
DX: R10.9 Unspecified abdominal pain (principal); F11.10 Opioid abuse, uncomplicated; Z79.899 Other long term (current) drug therapy
CPT/HCPCS: 99283

== ENCOUNTER 2019-12-17 17:52 | Emergency (ER) | payer MEDICARE, MEDICAID, SELFPAY ==
[2019-12-17 18:40] VITALS: BP 120/80; BP 132/76; PULSE 71; PULSE 76; RESP 18; TEMP 35.9; O2SAT 95; O2SAT 99; BMI 24.7
--- NOTE | 2019-12-17 19:03 | ED.PSYCH ---
HPI - Psych General Chief Complaint: Psychiatric Symptoms Stated Complaint: crisis Time Seen by Provider: 12/17/19 18:48 Source: patient Mode of arrival: EMS Limitations: no limitations History of Present Illness HPI Narrative: patient is a 39-year-old female who is well known to this emergency room who states she wanted to call her [facility] [place] and claims to have ingested 40 tablets of 120mg Inderal (total of 4800mg), 20 tablets of 45 mg Remeron (900 mg) and 20 tablets of 60mg Cymbalta (1200mg). she claims to have taking this medication approximately 2 hours ago. She states she is starting to have distorted, blurred vision an electric tingling shocks all over her body. She denies nausea, states she has not vomited and is hungry. She is also concerned about 3 abscesses on her right forearm which are painful, denies fevers. She also states she you was diagnosed with kidney stones but was unable to afford the Flomax so she did not take the medication and did not pass the stone. Related Data Previous Rx's Medication Instructions Recorded duloxetine 60 mg PO DAILY #30 cap 12/14/19 methadone [Methadose] 20 mg PO DAILY #1 ml 12/14/19 mirtazapine 45 mg PO BEDTIME #30 tab 12/14/19 propranolol 60 mg PO DAILY #30 cap 12/14/19 zolpidem 10 mg PO BEDTIME #30 tab 12/14/19 zolpidem 10 mg PO BEDTIME #30 tab 12/14/19 tamsulosin [Flomax] 0.4 mg PO DAILY #14 cap 12/15/19 tamsulosin [Flomax] 0.4 mg PO DAILY #14 cap 12/15/19 Allergies Allergy/AdvReac Type Severity Reaction Status Date / Time amoxicillin [AMOXICILLIN] Allergy Intermediate STOMACH Verified 12/16/19 18:31 UPSET, stomach pain and diarrhea trazodone [TRAZODONE] Allergy Intermediate UNKNOWN Verified 12/16/19 18:31 ketorolac [From TORADOL] Allergy Mild RASH Verified 12/16/19 18:31 Sulfa (Sulfonamide Allergy Mild GI UPSET Verified 12/16/19 18:31 Antibiotics) acetaminophen [Vicodin] Allergy Unknown Unknown Verified 12/16/19 18:31 magnesium [MAGNESIUM] Allergy Unknown UNKNOWN Verified 12/16/19 18:31 promethazine [From PHENERGAN] Allergy Unknown UNKNOWN Verified 12/16/19 18:31 quetiapine [Seroquel] Allergy Unknown Unknown Verified 12/16/19 18:31 tramadol [TRAMADOL] Allergy Unknown UNK Verified 12/16/19 18:31 hydrocodone [From VICODIN] AdvReac Mild MIGRAINES Verified 12/16/19 18:31 metoclopramide [From REGLAN] AdvReac Unknown PT STATES Verified 12/16/19 18:31 GETTING SHAKY pregabalin [From LYRICA] AdvReac Unknown HALLUCINATI Verified 12/16/19 18:31 ONS Sulfacet-R Allergy Unknown Stomache Uncoded 02/19/19 00:00 pain and diarrhea Review of Systems Review of Systems: Constitutional: No Fever, No Chills ENT/Mouth: No Ear Pain, No Nasal Congestion, No sore throat Eyes: No Eye Pain, No Swelling, No Redness Cardiovascular: No Chest Pain, No SOB Respiratory: No Cough, No Sputum, No Dyspnea Gastrointestinal: No Nausea, No Vomiting, No Diarrhea, No Hematochezia, No Melena Genitourinary: No Dysuria, No Urinary Frequency, No Hematuria Musculoskeletal: No Myalgias Skin: No Skin Lesions, No rash Neuro: No Weakness, No Numbness, No Paresthesias, No Dizziness, No Headache Psych: positive Anxiety, positive Depression, positive SI as attempt was claimed to be made, denies HI Heme/Lymph: No Lymphadenopathy Endocrine: No Polyuria, No Polydipsia Yes all other systems are reviewed and are negative Neurologic: Denies confusion Psychiatric: Psychiatric: Denies confusion [facility] Past Medical History Attestation statement: The following information was validated with the patient. Medical History Anxiety Asthma Chronic pain Cocaine abuse Depression Heroin abuse Migraine Suicide attempt by beta gio overdose Tobacco dependence Tremor Surgical History S/P total abdominal hysterectomy Social History Social History Household Members: None Housing: Apartment Alcohol intake: former Smoking Status: Never smoker Tobacco Type: Cigarette Packs Per Day: 1 Cigarettes Per Day: 20.0 Years Smoked: 23 years Second Hand Smoke Exposure: Yes Substance Use Type: Heroin Advance Directives: No Advance Directives Information Provided: Yes service: No Current occupational status: employed Sexual orientation: Don't Know Physical Exam Vital Signs: Vital Signs: Vital Signs Temp Pulse Resp BP Pulse Ox 12/17/19 18:40 96.7 F L 71 18 120/80 99 Body Mass Index 24.7 Const: General: cooperative, healthy appearing, comfortable, no acute distress and well developed; No confusion or patient obtunded Nutritional Appearance: average body habitus and well nourished Orientation/consciousness: patient oriented x3, No confusion and No patient obtunded Limitations: no limitations HENMT: Head: Yes normal to inspection Ears: hearing grossly normal bilaterally Face and sinus: Yes normal facial exam Mouth: Normal oral and palatal mucosa present Eyes: General: appearance normal, both eyes and all related structures Neck: Neck: Yes normal visual inspection, Yes full ROM and Yes supple Resp: Effort & Inspection: normal respiratory effort and able to speak in complete sentences Auscultation: clear to auscultation bilaterally Cardio: Rate: regular rate Rhythm: regular rhythm Heart sounds: normal S1 and S2 GI: Inspection: Yes normal to inspection Palpation (GI): Soft to palpation and nontender Skin: General skin exam: no rashes or lesions noted (3 fluctuant areas of erythema on right forearm which are warm to touch) Neuro: General: patient oriented x3, No confusion and No patient obtunded Cognition (Neuro): normal cognition Motor exam (neuro): no tremor noted Extrem: General: Yes normal to inspection Psych: Appearance: grossly normal and well kempt Speech and movement: Normal speech and movement present Affect: normal affect Attitude: cooperative Thought process: abnormal and Racing thoughts present Thought content: Suicidality present (with attempt via pill overdose), no homicidality, no hallucinations and Depressive thoughts present Insight: Good insight present (Psych) Judgement: Good judgement present (Psych) Course Course Course Narrative: 31-year-old female a a past medical history of SI, anxiety, asthma, chronic pain, cocaine abuse, heroin abuse, migraines, tremor, depression, kidney stones and cellulitis presents with suicide attempt via pill ingestion, 4800 mg of Inderal 900 mg and Remeron and 1200 mg of Cymbalta. will call poison Control for monitoring parameters. Patient's vital signs are stable, she appears well and is states she is hungry. Will treat patient's abscesses with doxycycline p.o. once I have clearance from poison Control. Monitoring via radiation monitor. will get labs. put in consult for crisis. 10pm VSS, pt sleeping 10:30pm patient yelling being belligerent and wants to leave. Vital signs are stable. MDM - Psych Restraints Face to Face Assessment: Face to Face Assessment: Current Situation: After assessment of the patient, a review of the pertinent medical record and a discussion with nursing staff, I feel the patient requires a restrain intervention. Reaction To: [] Medical Condition: [] Behavioral State: [] Continued Need: [] Discharge Plan Discharge Clinical Impression: Suicide attempt by drug overdose, Cellulitis of forearm, right Suicide attempt by beta gio overdose Qualifiers: Encounter type: initial encounter Qualified Code(s): T44.7X2A - Poisoning by beta-adrenoreceptor antagonists, intentional self-harm, initial encounter Prescriptions: No Action methadone [Methadose] 10 mg/mL Concentrate 20 mg PO DAILY Qty: 1 RF: 0 zolpidem 5 mg Tablet 10 mg PO BEDTIME Qty: 30 RF: 0 propranolol 60 mg capsule,extended release 24 hr 60 mg PO DAILY Qty: 30 RF: 0 mirtazapine 45 mg tablet 45 mg PO BEDTIME Qty: 30 RF: 0 zolpidem 10 mg tablet 10 mg PO BEDTIME Qty: 30 RF: 0 duloxetine 60 mg capsule,delayed release(DR/EC) 60 mg PO DAILY Qty: 30 RF: 0 tamsulosin [Flomax] 0.4 mg capsule 0.4 mg PO DAILY Qty: 14 RF: 0 tamsulosin [Flomax] 0.4 mg capsule 0.4 mg PO DAILY Qty: 14 RF: 0
--- NOTE | 2019-12-17 22:34 | PC.NURSE ---
PT IF REFUSING TO SPEAK WITH MD. PT ALERT, AND YELLING AT STAFF. PT DENIES S/I AT THIS TIME. PT ALERT, RESPIRATIONS EASY, N/L. SKIN W/D.
== END 2019-12-17 22:55 | disposition left against medical advice (07) ==
PROVIDERS: Emergency Provider Internal Medicine
DX: T44.7X2A Poisoning by beta-adrenoreceptor antagonists, intentional self-harm, initial encounter (principal); F33.1 Major depressive disorder, recurrent, moderate; R45.851 Suicidal ideations; F11.10 Opioid abuse, uncomplicated; Y92.009 Unspecified place in unspecified non-institutional (private) residence as the place of occurrence of the external cause; Z79.899 Other long term (current) drug therapy; Z87.891 Personal history of nicotine dependence
CPT/HCPCS: 99283; 99284

== ENCOUNTER 2019-12-17 22:54 | Emergency (ER) | payer MEDICARE, MEDICAID, SELFPAY ==
--- NOTE | 2019-12-17 23:46 | PC.NURSE ---
PATIENT CALLING MULTIPLE TIMES TO YELL AT THIS RN ON THE PHONE. STATING SHE NEEDS TO BE SEEN BUT REFUSING TO COME INTO THE HOSPITAL. PATIENT NOT SEEN IN THE WAITING ROOM OR IN THE VICINITY OF EMERGENCY ENTRANCE OR IMMEDIATE PARKING LOT AREA. BED HAS BEEN AVAILABLE SINCE PATIENT CHECKED IN FOR A SECOND TIME. PATIENT HAD TO BE ESCORTED OUT BY SECURITY EARLIER AFTER THE PROVIDER REEVALUATED HER. YELLING AND THREATENING THE PROVIDER AND STAFF, REFUSING BLOOD WORK FROM TECHS THEN STARTED TO SWEAR AT THE SITTER WHO WAS WITH HER. PATIENT DENIED SI OR HI WHILE THREATENING PROVIDER. SPOKEN WITH PATIENT ONCE SHE WAS ESCORTED OUT, STATED SHE COULD SIGN BACK IN AND WOULD BE SEEN AGAIN IF NEED BE, SECURITY MADE AWARE WELL THE PROVIDER. PATIENT HAS NOT BEEN SEEN SINCE CHECKING BACK IN FOR THE SECOND TIME THIS EVENING.
== END 2019-12-17 23:00 | disposition left against medical advice (07) ==
PROVIDERS: Emergency Provider Internal Medicine
DX: R45.851 Suicidal ideations (principal)

== ENCOUNTER 2020-04-04 16:45 | Emergency (ER) | payer MEDICARE, MEDICAID, SELFPAY ==
--- NOTE | ~2020-04-04 | XR_ITS ---
EXAMINATION: XR WRIST, RIGHT CLINICAL INFORMATION: Pain COMPARISON: None TECHNIQUE: 4 plain film views of the right wrist. FINDINGS: The bones and soft tissues are normal. No fracture. Alignment is anatomic with normal joint spaces. No erosions or abnormal soft tissue calcifications. XR/XR wrist RT min 3V IMPRESSION: Normal right wrist.
[2020-04-04 16:58] VITALS: BP 134/92; PULSE 80; RESP 22; TEMP 37; O2SAT 99; BMI 30.7
--- NOTE | 2020-04-04 20:42 | ED.EXTPRO ---
HPI - Extremity Problem General Chief complaint: Extremity Problem Stated complaint: HAND PAIN Time Seen by Provider: 04/04/20 20:28 Source: patient and EMS Mode of arrival: EMS Limitations: no limitations History of Present Illness HPI Narrative: 39 y/o female with history of anxiety, depression, lupus, polysubstance abuse, migraines, chronic pain, history of several wrist/hand surgeries in the past who presents with 910 non-traumatic right wrist pain. She states she noted some swelling and ache a few days ago. It rapidly progressed and started to swell. She is unable to make a fist due to pain. She is unable to use ice to the area due to pain. She has been taking Motrin around the clock and attempting lidoderm patches but it is too painful. She previously had surgeries to both hands/wrist at [facility]. She reports having a history of sepsis due to a wrist infection that was discovered with MRI in the past. She went to [facility] earlier today but the wait time was 12+ hours so she went home and called an ambulance to come here because the wait time is shorter. She cannot drive with her hand because she drives a standard. She denies fever, chills. MD Complaint: extremity pain and extremity swelling Onset (ago): day(s) (3) Pain Consistency: constant Location: right and upper extremity Severity scale (1-10): 9 Quality: aching and sharp Radiation: proximal Relieving factors: nothing Exacerbating factors: range of motion and palpation Associated symptoms: arthralgias Related Data Previous Rx's Medication Instructions Recorded duloxetine 60 mg PO DAILY #30 cap 12/14/19 methadone [Methadose] 20 mg PO DAILY #1 ml 12/14/19 mirtazapine 45 mg PO BEDTIME #30 tab 12/14/19 propranolol 60 mg PO DAILY #30 cap 12/14/19 zolpidem 10 mg PO BEDTIME #30 tab 12/14/19 zolpidem 10 mg PO BEDTIME #30 tab 12/14/19 tamsulosin [Flomax] 0.4 mg PO DAILY #14 cap 12/15/19 tamsulosin [Flomax] 0.4 mg PO DAILY #14 cap 12/15/19 Allergies Allergy/AdvReac Type Severity Reaction Status Date / Time amoxicillin [AMOXICILLIN] Allergy Intermediate STOMACH Verified 12/16/19 18:31 UPSET, stomach pain and diarrhea trazodone [TRAZODONE] Allergy Intermediate UNKNOWN Verified 12/16/19 18:31 ketorolac [From TORADOL] Allergy Mild RASH Verified 12/16/19 18:31 Sulfa (Sulfonamide Allergy Mild GI UPSET Verified 12/16/19 18:31 Antibiotics) acetaminophen [Vicodin] Allergy Unknown Unknown Verified 12/16/19 18:31 magnesium [MAGNESIUM] Allergy Unknown UNKNOWN Verified 12/16/19 18:31 promethazine [From PHENERGAN] Allergy Unknown UNKNOWN Verified 12/16/19 18:31 quetiapine [Seroquel] Allergy Unknown Unknown Verified 12/16/19 18:31 tramadol [TRAMADOL] Allergy Unknown UNK Verified 12/16/19 18:31 hydrocodone [From VICODIN] AdvReac Mild MIGRAINES Verified 12/16/19 18:31 metoclopramide [From REGLAN] AdvReac Unknown PT STATES Verified 12/16/19 18:31 GETTING SHAKY pregabalin [From LYRICA] AdvReac Unknown HALLUCINATI Verified 12/16/19 18:31 ONS Sulfacet-R Allergy Unknown Stomache Uncoded 02/19/19 00:00 pain and diarrhea Review of Systems Review of Systems: Constitutional: No Fever, No Chills Cardiovascular: No Chest Pain, No SOB Respiratory: No Cough, No Sputum Gastrointestinal: No Nausea, No Vomiting, No Diarrhea, No abdominal Pain Musculoskeletal: + joint pain, + Myalgias Skin: No Skin Lesions, No rash Neuro: No Weakness, No Numbness, No Dizziness, + Headache Psych: + Anxiety/Panic, No Depression Heme/Lymph: No Bruising, No Lymphadenopathy PMFSH Past Medical History Attestation statement: The following information was validated with the patient. Medical History Anxiety Asthma Chronic pain Cocaine abuse Depression Heroin abuse Migraine Suicide attempt by beta gio overdose Tobacco dependence Tremor Surgical History S/P total abdominal hysterectomy Social History Social History Household Members: None Housing: Apartment Alcohol intake: former Smoking Status: Never smoker Tobacco Type: Cigarette Packs Per Day: 1 Cigarettes Per Day: 20.0 Years Smoked: 23 years Second Hand Smoke Exposure: Yes Substance Use Type: Heroin Advance Directives: No Advance Directives Information Provided: Yes service: No Current occupational status: employed Sexual orientation: Don't Know Physical Exam Vital Signs: Vital Signs: Last Vital Signs Temp 98.6 F 04/04/20 16:58 Pulse 80 04/04/20 16:58 Resp 22 H 04/04/20 16:58 BP 134/92 H 04/04/20 16:58 Pulse Ox 99 04/04/20 16:58 Body Mass Index 30.7 Appearance: Alert. Oriented X3. Tearful and anxious HEENT: normal inspection CVS: Normal heart rate and rhythm. Pulses normal. Respiratory: No respiratory distress. Skin: Skin warm and dry. Normal skin color. Normal skin turgor. No rashes. Extremities: right wrist with swelling, erythema and warmth, significant tenderness throughout entire wrist and all 5 fingers. n o palpable fluid collection. unable to move wrist at all due to pain. 2+ radial pulse, cap refill <3 sec. Neuro: Oriented X 3. No sensory deficit. Course Course Course Narrative: 39 y/o female presenting with acute onset of severe right wrist pain, non-traumatic. Signs of early cellulitis on exam. She has been seen here several times for similar presentation, concern for narcotic seeking. Given her intense pain will get basic lab work and inflammatory markers as well as XR of wrist. If labs are concerning will proceed with CT scan for assessment of abscess. Will sign out of [facility] who will assume care. She is currently asking to be sent by ambulance to [facility] to be evaluated by her Plastic Surgeon and Orthopedist so that she does not have to wait 12 hours in their waiting room. Explained that is not an emergent need at this time and we now have Hand Surgeon here if it is needed. Discharge Plan Discharge Prescriptions: No Action methadone [Methadose] 10 mg/mL Concentrate 20 mg PO DAILY Qty: 1 RF: 0 zolpidem 5 mg Tablet 10 mg PO BEDTIME Qty: 30 RF: 0 propranolol 60 mg capsule,extended release 24 hr 60 mg PO DAILY Qty: 30 RF: 0 mirtazapine 45 mg tablet 45 mg PO BEDTIME Qty: 30 RF: 0 zolpidem 10 mg tablet 10 mg PO BEDTIME Qty: 30 RF: 0 duloxetine 60 mg capsule,delayed release(DR/EC) 60 mg PO DAILY Qty: 30 RF: 0 tamsulosin [Flomax] 0.4 mg capsule 0.4 mg PO DAILY Qty: 14 RF: 0 tamsulosin [Flomax] 0.4 mg capsule 0.4 mg PO DAILY Qty: 14 RF: 0
--- NOTE | 2020-04-04 21:05 | MHC.HEMONC ---
pt refused blood work until she got pain medication
[2020-04-04] MEDS: oxyCODONE HCl Immed Release 5 MG TABLET PO (21:10)
--- NOTE | 2020-04-04 21:15 | PC.NURSE ---
Pt adamant this medication wont work for me. pt stated she last used in November IV drugs. Pt stated at [facility] they had me on a Dilaudid pump . pt educated by provider of process of pain management.
--- NOTE | 2020-04-04 21:18 | PC.NURSE ---
per patient i'm going to flag down a nurse every 20 minutes because i know this medication won't work for me continuting to monitor.
--- NOTE | 2020-04-04 21:37 | PC.NURSE ---
pt refused vs, lab work. pt instructed that she was leaving against medical advice. I am leaving WITH medical advice. You aren't treating my pain . pt encouraged to follow up with the surgeon who previously worked on her hand. Patient stated Fuck that, It's a tuesday. pt encouraged to reamin at [facility] for testing and further evaluation to rule out infection. Pt adamantly refused to remain. Pt verbalized understanding of risks of refusal.
== END 2020-04-04 21:42 | disposition left against medical advice (07) ==
PROVIDERS: Emergency Provider Emergency Medicine
DX: L03.113 Cellulitis of right upper limb (principal); M25.531 Pain in right wrist; Z76.5 Malingerer [conscious simulation]; F19.10 Other psychoactive substance abuse, uncomplicated; F17.210 Nicotine dependence, cigarettes, uncomplicated; Z91.5 Personal history of self-harm
CPT/HCPCS: 73110; 99283

== ENCOUNTER 2020-05-29 17:45 | Emergency (ER) | payer MEDICARE, MEDICAID, SELFPAY ==
--- NOTE | ~2020-05-29 | XR_ITS ---
EXAMINATION: CHEST X-RAY CLINICAL INFORMATION: Overdose COMPARISON: Chest x-ray 05/11/2019 TECHNIQUE: Frontal view of the chest was obtained. FINDINGS: Cardiac silhouette is normal in size. The lungs are well aerated. No lobar consolidation. No pleural effusion or pneumothorax. No gross osseous abnormality. XR/XR chest 1V IMPRESSION: Stable examination demonstrating no acute pulmonary pathology.
[2020-05-29 18:08] VITALS: BP 157/91; PULSE 71
[2020-05-29 18:27] VITALS: BP 100/68; PULSE 84; RESP 18; TEMP 36.9; O2SAT 97; BMI 28.3
--- NOTE | 2020-05-29 18:56 | ECG_ITS ---
Test Reason : SUBST ABUSE Blood Pressure : / mmHG Vent. Rate : 057 BPM Atrial Rate : 057 BPM P-R Int : 156 ms QRS Dur : 082 ms QT Int : 464 ms P-R-T Axes : 063 054 059 degrees QTc Int : 451 ms Sinus bradycardia Otherwise normal ECG When compared with ECG of 10-DEC-2019 11:22, No significant change was found Referred By: Daysi Hubbard Electronically Signed By:NICK RUSSELL
--- NOTE | 2020-05-29 18:58 | ED_ITS ---
HPI - Overdose General Chief Complaint: Overdose Stated Complaint: Overdose sec 12 Time Seen by Provider: 05/29/20 18:55 Source: patient and EMS Mode of arrival: EMS Limitations: no limitations History of Present Illness HPI Narrative: 40-year-old female came in after overdosed on 25 pills of propanolol (160 mg each) patient took it around 17:00 about 2 hours ago, patient is trying to bring her mom's attention, patient declined using any other drugs or overdosing in any other material. Declined using any recreational drugs. Related Data Previous Rx's Medication Instructions Recorded duloxetine 60 mg PO DAILY #30 cap 12/14/19 methadone [Methadose] 20 mg PO DAILY #1 ml 12/14/19 mirtazapine 45 mg PO BEDTIME #30 tab 12/14/19 propranolol 60 mg PO DAILY #30 cap 12/14/19 zolpidem 10 mg PO BEDTIME #30 tab 12/14/19 zolpidem 10 mg PO BEDTIME #30 tab 12/14/19 tamsulosin [Flomax] 0.4 mg PO DAILY #14 cap 12/15/19 tamsulosin [Flomax] 0.4 mg PO DAILY #14 cap 12/15/19 Allergies Allergy/AdvReac Type Severity Reaction Status Date / Time amoxicillin [AMOXICILLIN] Allergy Intermediate STOMACH Verified 12/16/19 18:31 UPSET, stomach pain and diarrhea trazodone [TRAZODONE] Allergy Intermediate UNKNOWN Verified 12/16/19 18:31 ketorolac [From TORADOL] Allergy Mild RASH Verified 12/16/19 18:31 Sulfa (Sulfonamide Allergy Mild GI UPSET Verified 12/16/19 18:31 Antibiotics) acetaminophen [Vicodin] Allergy Unknown Unknown Verified 12/16/19 18:31 magnesium [MAGNESIUM] Allergy Unknown UNKNOWN Verified 12/16/19 18:31 promethazine [From PHENERGAN] Allergy Unknown UNKNOWN Verified 12/16/19 18:31 quetiapine [Seroquel] Allergy Unknown Unknown Verified 12/16/19 18:31 tramadol [TRAMADOL] Allergy Unknown UNK Verified 12/16/19 18:31 hydrocodone [From VICODIN] AdvReac Mild MIGRAINES Verified 12/16/19 18:31 metoclopramide [From REGLAN] AdvReac Unknown PT STATES Verified 12/16/19 18:31 GETTING SHAKY pregabalin [From LYRICA] AdvReac Unknown HALLUCINATI Verified 12/16/19 18:31 ONS Sulfacet-R Allergy Unknown Stomache Uncoded 02/19/19 00:00 pain and diarrhea Review of Systems Review of Systems: All other systems are reviewed and are negative Constitutional: Reports as per HPI and Reports no additional constitutional complaints Eyes: Reports as per HPI and Reports no additional eye complaints Reports system reviewed and no additional complaints, except as documented Cardiovascular: Reports as per HPI and Reports no additional cardiovascular complaints Respiratory: Reports as per HPI and Reports no additional respiratory complaints Gastrointestinal: Reports as per HPI and Reports no additional gastrointestinal complaints Genitourinary: Reports no additional female genitourinary complaints Musculoskeletal: Reports no additional musculoskeletal complaints Skin/Breast: Reports system reviewed and no additional complaints, except as docu Psychiatric: Reports no additional psychiatric complaints Endocrine: Reports no additional endocrine complaints Hematologic/Lymphatic: Reports no additional hematologic/lymphatic complaints Allergic/Immunologic: Reports no additional allergic/immunologic complaints Reports system reviewed and no additional complaints, except as documented and Reports Abnormal speech present [facility] Past Medical History Medical History Anxiety Asthma Chronic pain Cocaine abuse Depression Heroin abuse Migraine Suicide attempt by beta gio overdose Tobacco dependence Tremor Surgical History S/P total abdominal hysterectomy Social History Social History Household Members: None Housing: Apartment Alcohol intake: former Smoking Status: Never smoker Tobacco Type: Cigarette Packs Per Day: 1 Cigarettes Per Day: 20.0 Years Smoked: 23 years Second Hand Smoke Exposure: Yes Substance Use Type: Heroin Advance Directives: No Advance Directives Information Provided: Yes service: No Current occupational status: employed Sexual orientation: Don't Know Physical Exam Vital Signs: Vital Signs: Last Vital Signs Temp 98.4 F 05/29/20 18:27 Pulse 84 05/29/20 22:00 Resp 16 05/29/20 22:00 BP 100/50 L 05/29/20 22:00 Pulse Ox 97 05/29/20 22:00 Body Mass Index 28.3 Vital signs have been reviewed as appeared to be correct. Blood pressure normal. Heart rate normal. Respiration rate normal. Temperature normal. Oxygen saturation normal. Appearance: Alert. Oriented X3. No acute distress. Head: Normal external exam. Normocephalic. Atraumatic. No Nickerson signs noted. No raccoon eyes noted Eyes: PERRLA. EOMI. Conjunctiva and sclera normal. Eyelids normal. ENT: TM's Normal. Pharynx normal. Uvula midline. Moist mucous membranes. No trismus noted. No drooling noted. No muffled voice noted. Neck: Normal inspection. Neck supple. FROM. No adenopathy. Thyroid Normal. No meningeal signs. No neck mass noted. CVS: Normal heart rate and rhythm. Heart sound normal. No murmurs noted. Pulses normal throughout. Respiratory: No respiratory distress. Painless inspiration. Breath sounds normal. No wheezes/rales/rhonchi noted. Chest nontender. No accessory muscle usage noted or decreased air movement noted. Abdomen: Soft and nontender. Bowel sounds normal in all 4 quadrants. No distention noted. No organomegaly noted. No visible injury noted. Back: No CVA tenderness. Full range of motion noted. Skin: Skin warm and dry. Normal skin color. Normal skin turgor. No rashes/lesions/lacerations noted. Extremities: No lower extremity edema. Extremities exhibit normal range of motion. Extremities nontender. Neuro: Oriented X 3. No motor deficit. No sensory deficit. Reflexes normal. MDM - Overdose Lab Data Attestation: I reviewed the patient's lab results. Result diagrams: 05/29/20 19:56 05/29/20 19:56 Labs: Lab Results 05/29/20 05/29/20 05/29/20 Range/Units 19:56 19:56 19:56 WBC 9.6 (4.8-10.8) X10*3/uL RBC 3.96 L (4.20-5.50) X10*6/uL Hgb 12.0 (12.0-16.0) g/dl Hct 36.2 L (37-47) % MCV 91.4 (80-98) fL MCH 30.3 (27.0-33.0) pg MCHC 33.1 (31.0-35.0) g/dl RDW 13.8 (11.0-16.0) % Plt Count 387 (160-400) X10*3/uL MPV 9.8 (9.4-12.3) fL Immature Gran % (Auto) 0.1 (0.0-0.4) % Neut % (Auto) 54.3 (45-73) % Lymph % (Auto) 39.0 (20-40) % Hardeman % (Auto) 5.7 (2-11) % Eos % (Auto) 0.7 (0-4) % Baso % (Auto) 0.2 (0-2) % Lymph # (Auto) 3.7 (1.2-4.9) X10*3/uL Hardeman # (Auto) 0.5 (0.1-1.2) X10*3/uL Eos # (Auto) 0.1 (0.0-0.4) X10*3/uL Baso # (Auto) 0.0 (0.0-0.2) X10*3/uL Abs Immat Gran (auto) 0.01 (0.00-0.03) X10*3/uL Absolute Neuts (auto) 5.2 (2.0-8.3) X10*3/uL Absolute Nucleated RBC 0.000 (0.0-0.012) X10*3/uL Nucleated RBC % (auto) 0.0 (0.0-0.2) /100WBC Sodium 138 (135-145) mmol/L Potassium 3.3 (3.3-5.1) mmol/L Chloride 105 (96-108) mmol/L Carbon Dioxide 26 (22-29) mmol/L Anion Gap 10 L (12-20) BUN 8 L D (9-16) mg/dL Creatinine 0.76 (0.5-1.4) mg/dL Estim Creat Clear Calc 102.0 Estimated GFR > 60 Random Glucose 142 H D (60-115) mg/dL Calcium 8.8 (8.4-10.2) mg/dL Total Bilirubin 0.3 (0.0-1.0) mg/dL Direct Bilirubin < 0.2 (0.0-0.5) mg/dL AST 19 D (5-31) U/L ALT 32 H (0-31) U/L Alkaline Phosphatase 79 (39-117) U/L Troponin I High Sens < 3.5 (<3.5-17.0) ng/L B-Natriuretic Peptide < 10 (<100) pg/mL Total Protein 7.0 (6.5-8.0) g/dL Albumin 3.9 (3.5-5.0) g/dL Lipase (8-78) U/L Salicylates < 5.0 L (15-30) mg/dL Acetaminophen < 1 (<30) mcg/mL COVID-19 (EZE) (Negative) COVID-19 Clin Com 05/29/20 05/29/20 Range/Units 19:56 19:56 WBC (4.8-10.8) X10*3/uL RBC (4.20-5.50) X10*6/uL Hgb (12.0-16.0) g/dl Hct (37-47) % MCV (80-98) fL MCH (27.0-33.0) pg MCHC (31.0-35.0) g/dl RDW (11.0-16.0) % Plt Count (160-400) X10*3/uL MPV (9.4-12.3) fL Immature Gran % (Auto) (0.0-0.4) % Neut % (Auto) (45-73) % Lymph % (Auto) (20-40) % Hardeman % (Auto) (2-11) % Eos % (Auto) (0-4) % Baso % (Auto) (0-2) % Lymph # (Auto) (1.2-4.9) X10*3/uL Hardeman # (Auto) (0.1-1.2) X10*3/uL Eos # (Auto) (0.0-0.4) X10*3/uL Baso # (Auto) (0.0-0.2) X10*3/uL Abs Immat Gran (auto) (0.00-0.03) X10*3/uL Absolute Neuts (auto) (2.0-8.3) X10*3/uL Absolute Nucleated RBC (0.0-0.012) X10*3/uL Nucleated RBC % (auto) (0.0-0.2) /100WBC Sodium (135-145) mmol/L Potassium (3.3-5.1) mmol/L Chloride (96-108) mmol/L Carbon Dioxide (22-29) mmol/L Anion Gap (12-20) BUN (9-16) mg/dL Creatinine (0.5-1.4) mg/dL Estim Creat Clear Calc Estimated GFR Random Glucose (60-115) mg/dL Calcium (8.4-10.2) mg/dL Total Bilirubin (0.0-1.0) mg/dL Direct Bilirubin (0.0-0.5) mg/dL AST (5-31) U/L ALT (0-31) U/L Alkaline Phosphatase (39-117) U/L Troponin I High Sens (<3.5-17.0) ng/L B-Natriuretic Peptide (<100) pg/mL Total Protein (6.5-8.0) g/dL Albumin (3.5-5.0) g/dL Lipase 36 (8-78) U/L Salicylates (15-30) mg/dL Acetaminophen (<30) mcg/mL COVID-19 (EZE) Negative (Negative) COVID-19 Clin Com See Note Discharge Plan Discharge Clinical Impression: Anxiety, Depression, Overdose Prescriptions: No Action methadone [Methadose] 10 mg/mL Concentrate 20 mg PO DAILY Qty: 1 RF: 0 zolpidem 5 mg Tablet 10 mg PO BEDTIME Qty: 30 RF: 0 propranolol 60 mg capsule,extended release 24 hr 60 mg PO DAILY Qty: 30 RF: 0 mirtazapine 45 mg tablet 45 mg PO BEDTIME Qty: 30 RF: 0 zolpidem 10 mg tablet 10 mg PO BEDTIME Qty: 30 RF: 0 duloxetine 60 mg capsule,delayed release(DR/EC) 60 mg PO DAILY Qty: 30 RF: 0 tamsulosin [Flomax] 0.4 mg capsule 0.4 mg PO DAILY Qty: 14 RF: 0 tamsulosin [Flomax] 0.4 mg capsule 0.4 mg PO DAILY Qty: 14 RF: 0
[2020-05-29 20:01] LABS: MANUAL DIFF FLAG NO
[2020-05-29 20:02] LABS: Basophils Percent Auto 0.2 % (0-2); Eosinophils Absolute Auto 0.1 X10*3/uL (0.0-0.4); Eosinophils Percent Auto 0.7 % (0-4); Hematocrit 36.2 % (37-47); Imm Gran Abs Auto 0.01 X10*3/uL (0.00-0.03); Imm Gran Pct Auto 0.1 % (0.0-0.4); Lymphocytes Absolute Auto 3.7 X10*3/uL (1.2-4.9); Mean Corpuscular HGB Conc 33.1 g/dl (31.0-35.0); Mean Corpuscular Hemoglobin 30.3 pg (27.0-33.0); Mean Corpuscular Volume 91.4 fL (80-98); Mean Platelet Volume 9.8 fL (9.4-12.3); Monocytes Absolute Auto 0.5 X10*3/uL (0.1-1.2); Monocytes Percent Auto 5.7 % (2-11); Neutrophils Absolute Auto 5.2 X10*3/uL (2.0-8.3); Neutrophils Percent Auto 54.3 % (45-73); Platelet Count 387 X10*3/uL (160-400); Red Blood Count 3.96 X10*6/uL (4.20-5.50); Red Cell Distribution Width 13.8 % (11.0-16.0); White Blood Count 9.6 X10*3/uL (4.8-10.8)
--- NOTE | 2020-05-29 20:02 | PC.NURSE ---
22g IV access established in left forearm. Labs drawn and sent for analysis. Awaiting results.
[2020-05-29 20:25] LABS: COVID-19 Test Negative (Negative)
[2020-05-29 20:27] LABS: Lipase 36 U/L (8-78)
[2020-05-29 20:28] LABS: Acetaminophen LAB < 1 mcg/mL (<30); Alanine Aminotransferase 32 U/L (0-31); Albumin Level 3.9 g/dL (3.5-5.0); Alkaline Phosphatase 79 U/L (39-117); Anion Gap 10 (12-20); Aspartate Amino Transferase 19 U/L (5-31); Bilirubin Direct < 0.2 mg/dL (0.0-0.5); Bilirubin Total 0.3 mg/dL (0.0-1.0); Blood Urea Nitrogen 8 mg/dL (9-16); Calcium 8.8 mg/dL (8.4-10.2); Carbon Dioxide 26 mmol/L (22-29); Chloride 105 mmol/L (96-108); Estimated Glomerular Filt Rate > 60; Glucose Random 142 mg/dL (60-115); Potassium 3.3 mmol/L (3.3-5.1); Salicylate < 5.0 mg/dL (15-30); Sodium 138 mmol/L (135-145)
[2020-05-29 20:31] LABS: B Type Natriuretic Peptide < 10 pg/mL (<100); Troponin-I High Sensitivity < 3.5 ng/L (<3.5-17.0)
--- NOTE | 2020-05-29 20:36 | MHC.RECOVSUP ---
Reason for consult o Current location: 6Hall o Identified substance use concern: Propanolol - Overdose <del>-</del> <del>Withdrawal</del> <del>-</del> <del>Seeking</del> <del>ATS</del> <del>(detox)</del> <del>-</del> <del>Support</del> ? Intervention: <del>o</del> <del>ATS</del> <del>bed</del> <del>search</del> <del>started/completed/in</del> <del>process</del> <del>o</del> <del>MAT</del> <del>started</del> <del>or</del> <del>to</del> <del>be</del> <del>started</del> <del>o</del> <del>Community</del> <del>resources</del> <del>provided</del> <del>o</del> <del>Harm</del> <del>reduction</del> <del>discussion</del> ? Plan: <del>o</del> <del>Referral</del> <del>to</del> <del>[facility]</del> <del>o</del> <del>Bed</del> <del>search</del> <del>in</del> <del>progress</del> <del>to</del> <del>o</del> <del>Follow</del> <del>up</del> <del>tomorrow</del> o Patient awaiting crisis evaluation <del>o</del> <del>Patient</del> <del>to</del> <del>follow</del> <del>up</del> <del>with</del> <del>[facility]</del> <del>after</del> <del>discharge</del> ? Additional information: pt came in due to ingesting too much Propanolol. pt is also Section 12. i was able to briefly gather some information and pt stated that she is not on MAT and that she currently lives home. I could gather anything else because she fell asleep.
[2020-05-29] MEDS: 0.9 % Sodium Chloride 1,000 ML 999 ML IVCONT (20:48)
[2020-05-29 22:00] VITALS: BP 100/50; PULSE 84; RESP 16; O2SAT 97
--- NOTE | 2020-05-29 22:41 | PC.NURSE ---
Spoke Pete from Poison Control regarding Propanalol 160mg overdose: Monitor glucose Q2H if symptomatic, monitor for low BP, low pulse. Give fluids (already given). Give glucagon & vasopressors if needed for beta gio overdose. Monitor for 8 hours in ED for adverse effects. Will continue to monitor.
--- NOTE | 2020-05-29 22:47 | PC.NURSE ---
Pt reports I took Propanalol 160mg, about 30 tablets . Pt is alert/oriented, ambulating steadily, asking for food and drinks. Sitter at bedside. Section [address] Plan for BHN/Crisis evaluation. aware of discussion/recommendations from poison control.
--- NOTE | 2020-05-30 01:17 | PC.NURSE ---
Pt requested apple juice & ice from this RN. When given, patient also requested lights to be dimmed, but unable to dim lights due to patient being in a hallway bed. Pt then became very agitated with staff, swearing at staff, and attempted to leave ED. Security present to bring patient back to bed. Pt then began walking around the ED to check for open beds, counting and yelling at staff, stating that we are blinding her with flourescent lights. present. Pt moved to 4 pod. Report given to Chidi Caba RN. Awaiting consult.
[2020-05-30] MEDS: Mirtazapine 30 MG TABLET PO (01:50)
[2020-05-30] MEDS: Zolpidem Tartrate 5 MG TABLET PO (01:50)
[2020-05-30 02:11] LABS: Glucose Urine UA 100 MG/DL (NEG); Leukocyte Esterase Urine NEG (NEG); Nitrite Urine NEG (NEG); Specific Gravity - Urine >= 1.030 (1.005-1.025); Urine Blood NEG (NEG); Urine Ketones 5 MG/DL (NEG); Urine Protein 2+ MG/DL (NEG-TRACE)
[2020-05-30 02:12] LABS: Appearance Urine HAZY; Color Urine AMBER
[2020-05-30 02:13] LABS: UPreg QC Valid YES; Urine Pregnancy NEGATIVE (NEGATIVE)
[2020-05-30 02:19] LABS: Bacteria Urine TRACE /LPF; Calcium Oxalate Crystals Urine 1+ /LPF; Mucus Urine TRACE /LPF; RBC Urine 0-2 /HPF (0); Squamous Epithelial Cell Urine 3+ /LPF
[2020-05-30 02:34] LABS: Amphetamine Screen Urine Not Detected (Not Detect); Barbiturates, Urine Not Detected (Not Detect); Benzodiazepines Screen Urine Not Detected (Not Detect); Cannabinoid Screen Urine Not Detected (Not Detect); Cocaine Screen Urine POSITIVE (Not Detect); Opiate Screen Urine Not Detected (Not Detect); Phencyclidine Screen Urine Not Detected (Not Detect)
[2020-05-30 02:41] VITALS: BP 144/94; PULSE 82; RESP 18; TEMP 36.1; O2SAT 97
--- NOTE | 2020-05-30 04:04 | PC.NURSE ---
BHN at bed side.
--- NOTE | 2020-05-30 06:58 | PC.NURSE ---
Report recieved. PT ambulated to bathroom with steady gait, breakfast at bedside. PT is inpatient bedsearch.
[2020-05-30 09:01] VITALS: RESP 18
[2020-05-30 09:18] VITALS: BP 182/99; PULSE 66; TEMP 36.3; O2SAT 100
[2020-05-30] MEDS: ARIPiprazole 10 MG TABLET PO (09:19)
[2020-05-30 09:43] VITALS: BP 182/99; PULSE 66
[2020-05-30] MEDS: Propranolol HCL LA 60 MG CAP.SA.24H 120 MG PO (09:43)
--- NOTE | 2020-05-30 09:58 | PC.NURSE ---
PT reported that she is on methadone maintence, she states she uses the [facility] clinic on [facility] [address] [facility]. Clinic contacted ([phone]) dose verified with Sierra TURCIOS, pt last dosed on 05/29 at 8:44am with 65mg
[2020-05-30] MEDS: LORazepam 1 MG TABLET 2 MG PO ×2 (12:15→15:08)
--- NOTE | 2020-05-30 12:42 | PC.NURSE ---
Nurse to nurse completed with Latisha from [facility].
[2020-05-30 16:48] VITALS: BP 135/63; PULSE 59; RESP 18; TEMP 36.9; O2SAT 97
== END 2020-05-30 17:06 ==
PROVIDERS: Emergency Provider Emergency Medicine
DX: T51.2X2A Toxic effect of 2-Propanol, intentional self-harm, initial encounter (principal); Y92.032 Bedroom in apartment as the place of occurrence of the external cause; I10 Essential (primary) hypertension; F41.9 Anxiety disorder, unspecified; F32.9 Major depressive disorder, single episode, unspecified; R45.1 Restlessness and agitation; F14.10 Cocaine abuse, uncomplicated; Z20.822 Contact with and (suspected) exposure to COVID-19; J45.909 Unspecified asthma, uncomplicated; F11.20 Opioid dependence, uncomplicated; Z91.5 Personal history of self-harm; F17.210 Nicotine dependence, cigarettes, uncomplicated
CPT/HCPCS: 36415; 71045; 80048; 80076; 80143; 80179; 80307; 81001; 81025; 83690; 83880; 84484; 85025; 87635; 93005; 99285

== ENCOUNTER 2020-06-05 20:11 | Emergency (ER) | payer MEDICARE, MEDICAID, SELFPAY ==
[2020-06-05 20:25] VITALS: BP 136/80; BP 136/84; PULSE 100; PULSE 98; RESP 16; TEMP 36.7; O2SAT 98; BMI 28.4
--- NOTE | 2020-06-05 20:41 | PC.NURSE ---
PT SEARCHED BY [facility] . PT IN CRISIS ATTAIRE WITH SITTER AT BEDSIDE.
[2020-06-05 22:00] VITALS: BP 128/80; PULSE 88; RESP 16
--- NOTE | 2020-06-05 23:19 | PC.NURSE ---
PT REMAINS CALM AND COOPERATIVE IN HALLWAY BED. PT DENIES ANY COMPLAINTS AT THIS TIME.
--- NOTE | 2020-06-05 23:31 | ED.PSYCH ---
HPI - Psych General Chief Complaint: Psychiatric Symptoms Stated Complaint: crisis Time Seen by Provider: 06/05/20 23:26 Source: patient Mode of arrival: EMS Limitations: no limitations History of Present Illness HPI Narrative: Patient comes to emergency room, sent by [facility]. Patient recently discharged from [facility]. As soon as the patient got home, patient used 1 bag of heroin. Patient feeling depressed and anxious. Patient denies suicidal homicidal ideation. Patient states that she would like to go back to [place]. Currently complaining of anxiety, otherwise no complaints. Related Data Home Medications Medication Instructions Recorded Confirmed aripiprazole 1 tab PO DAILY 05/30/20 05/30/20 cephalexin 500 mg PO TID 05/30/20 05/30/20 oxybutynin chloride 1 tab PO DAILY 05/30/20 05/30/20 propranolol 120 mg PO DAILY 05/30/20 05/30/20 Previous Rx's Medication Instructions Recorded mirtazapine 45 mg PO BEDTIME #30 tab 12/14/19 zolpidem 10 mg PO BEDTIME #30 tab 12/14/19 Allergies Allergy/AdvReac Type Severity Reaction Status Date / Time amoxicillin [AMOXICILLIN] Allergy Intermediate STOMACH Verified 12/16/19 18:31 UPSET, stomach pain and diarrhea trazodone [TRAZODONE] Allergy Intermediate UNKNOWN Verified 12/16/19 18:31 ketorolac [From TORADOL] Allergy Mild RASH Verified 12/16/19 18:31 Sulfa (Sulfonamide Allergy Mild GI UPSET Verified 12/16/19 18:31 Antibiotics) acetaminophen [Vicodin] Allergy Unknown Unknown Verified 12/16/19 18:31 magnesium [MAGNESIUM] Allergy Unknown UNKNOWN Verified 12/16/19 18:31 promethazine [From PHENERGAN] Allergy Unknown UNKNOWN Verified 12/16/19 18:31 quetiapine [Seroquel] Allergy Unknown Unknown Verified 12/16/19 18:31 tramadol [TRAMADOL] Allergy Unknown UNK Verified 12/16/19 18:31 hydrocodone [From VICODIN] AdvReac Mild MIGRAINES Verified 12/16/19 18:31 metoclopramide [From REGLAN] AdvReac Unknown PT STATES Verified 12/16/19 18:31 GETTING SHAKY pregabalin [From LYRICA] AdvReac Unknown HALLUCINATI Verified 12/16/19 18:31 ONS Sulfacet-R Allergy Unknown Stomache Uncoded 02/19/19 00:00 pain and diarrhea Review of Systems Review of Systems: Constitutional : No Weight loss, No Fever, No Chills, No Night Sweats, No Fatigue, No Malaise ENT/Mouth : No Hearing loss, No Ear Pain, No Nasal Congestion, No Sinus Pain, No Hoarseness, No sore throat, No Rhinorrhea, No Swallowing Difficulty Eyes: No Eye Pain, No Swelling, No Redness, No Foreign Body, No Discharge, No Vision Changes Cardiovascular : No Chest Pain, No SOB, No Dyspnea on Exertion, No Orthopnea, No Edema, No Palpitations Respiratory : No Cough, No Sputum, No Wheezing, No Smoke Exposure, No Dyspnea Gastrointestinal : No Nausea, No Vomiting, No Diarrhea, No Constipation, No abdominal Pain, No Hematochezia, No Melena Genitourinary : no irregular bleeding, No Dysuria, No Urinary Frequency, No Hematuria, No Urinary Incontinence, No Urgency, No Flank Pain, No Urinary Flow Changes, No Hesitancy Musculoskeletal : No joint pain, No Myalgias, No Joint Swelling Skin : No Skin Lesions, No rash Neuro : No Weakness, No Numbness, No Paresthesias, No Loss of Consciousness, No Dizziness, No Headache Psych : Complaining of anxiety, depression, no SI or HI, ongoing substance addiction Heme/Lymph: No Bruising, No Bleeding,No Lymphadenopathy Endocrine : No Polyuria, No Polydipsia, No Temperature Intolerance PMFSH Past Medical History Medical History Anxiety Asthma Chronic pain Cocaine abuse Depression Heroin abuse Migraine Suicide attempt by beta gio overdose Tobacco dependence Tremor Surgical History S/P total abdominal hysterectomy Social History Social History Household Members: None Housing: Apartment Alcohol intake: former Smoking Status: Never smoker Tobacco Type: Cigarette Packs Per Day: 1 Cigarettes Per Day: 20.0 Years Smoked: 23 years Second Hand Smoke Exposure: Yes Substance Use Type: Heroin Advance Directives: No Advance Directives Information Provided: No service: No Current occupational status: employed Sexual orientation: Don't Know Physical Exam Vital Signs: Vital Signs: Last Vital Signs Temp 98.1 F 06/05/20 20:25 Pulse 98 06/05/20 20:25 Resp 16 06/05/20 20:25 BP 136/84 06/05/20 20:25 Pulse Ox 98 06/05/20 20:25 Body Mass Index 28.4 Appearance: Alert. Oriented X3. No acute distress. Eyes: Pupils equal, round and reactive to light. ENT: Pharynx normal. Neck: Normal inspection. Neck supple. No lymph nodes noted. No crepitus CVS: Normal heart rate and rhythm. Pulses normal. Normal S1 and S2 Respiratory: No respiratory distress. Breath sounds normal. No Wheezing. No rales Abdomen: Soft and nontender. No rigidity. No distention. good BS x4 Skin: Skin warm and dry. All skin track joseph in both extremities, no signs of cellulitis. Neuro: Oriented X 3. No motor deficit. No sensory deficit. Moving all extermities. No slurred speech. Discharge Plan Discharge Prescriptions: No Action mirtazapine 45 mg tablet 45 mg PO BEDTIME Qty: 30 RF: 0 zolpidem 10 mg tablet 10 mg PO BEDTIME Qty: 30 RF: 0 oxybutynin chloride 10 mg tablet extended release 24hr 1 tab PO DAILY RF: 0 cephalexin 500 mg capsule 500 mg PO TID RF: 0 propranolol 120 mg capsule,extended release 24 hr 120 mg PO DAILY RF: 0 aripiprazole 10 mg tablet 1 tab PO DAILY RF: 0
--- NOTE | 2020-06-05 23:39 | MHC.CARE ---
CARE Team reaches out to [facility] crisis river crossing supervisor, who reports that pt was seen in the community this evening with plan for ROGER follow up in the community; [facility] was unaware that pt was in the ED. [facility] plans to do an ROGER follow up with pt in the ED tomorrow unless pt is d/c to home. CARE Team checks in with pt, who reports that she does not feel safe going home and she would like to remain in the ED to speak with [facility] tomorrow.
[2020-06-06] MEDS: hydrOXYzine HCL 50 MG TABLET PO ×2 (00:26→12:34)
--- NOTE | 2020-06-06 03:45 | PC.NURSE ---
FAXED AND CALLED TO N. N RECEIVED FAX AT THIS TIME. WILL SEND CONSULT IN THE MORNING.
[2020-06-06 04:19] VITALS: BP 120/78; BP 132/84; PULSE 89; PULSE 90; RESP 16; O2SAT 96
[2020-06-06 08:57] VITALS: BP 107/59; PULSE 87; RESP 18; TEMP 36.3; O2SAT 97
[2020-06-06] MEDS: LORazepam 1 MG TABLET 2 MG PO ×2 (08:58→16:31)
[2020-06-06 11:51] VITALS: BP 105/58; PULSE 78; RESP 16; O2SAT 95
--- NOTE | 2020-06-06 12:31 | PC.NURSE ---
pt conner, MARTÍN Johnson updated, new rx for atarax.
--- NOTE | 2020-06-06 13:07 | PC.NURSE ---
BHN AT BEDSIDE
[2020-06-06 16:31] VITALS: BP 104/49; PULSE 93; RESP 16; O2SAT 94
--- NOTE | 2020-06-06 16:57 | MHC.RECOVSUP ---
Recovery Support note: Patient is a 40 year old Nepali speaking female who presented to [facility] ED reporting that she recently left treatment and relapsed on heroin. Patient was seen by N and N recommended that patient remain on a voluntary basis as a inpatient bedsearch. Patient secured a detox bed for herself at [facility] and requested transportation to the facility. Patient expressed concern that she does not have her medications and that [facility] would be unable to provide them. ED provider sent patient prescriptions to [facility]. Yellow cab has been arranged for [id number] to take patient to [facility] on [address], and then to [facility]. Discussed case with patient's RN.
== END 2020-06-06 17:48 | disposition home or self-care (01) ==
PROVIDERS: Emergency Provider Emergency Medicine
DX: F41.9 Anxiety disorder, unspecified (principal); F14.10 Cocaine abuse, uncomplicated; F32.9 Major depressive disorder, single episode, unspecified; F11.10 Opioid abuse, uncomplicated; F17.210 Nicotine dependence, cigarettes, uncomplicated
CPT/HCPCS: 99285

== ENCOUNTER 2020-09-06 19:42 | Emergency (ER) | payer MEDICARE, MEDICAID, SELFPAY ==
--- NOTE | ~2020-09-06 | XR_ITS ---
EXAMINATION: XR CHEST CLINICAL INFORMATION: Central line placement. COMPARISON: Chest radiograph dated 05/29/2020. TECHNIQUE: Frontal view of the chest was obtained. FINDINGS: Right-sided central venous catheter with its tip in the region of the distal SVC. No airspace consolidation. No pleural effusion or pneumothorax. No airspace consolidation. XR/XR chest 1V IMPRESSION: Right-sided central venous catheter with its tip in the region of the distal SVC.
[2020-09-06 19:49] VITALS: BP 104/58; PULSE 96; RESP 20; O2SAT 100; BMI 29.2
[2020-09-06 20:01] VITALS: TEMP 36.9
[2020-09-06 20:02] VITALS: BP 170/110; PULSE 100; O2SAT 97
[2020-09-06 21:47] LABS: MANUAL DIFF FLAG NO
[2020-09-06 21:48] LABS: Basophils Percent Auto 0.4 % (0-2); Eosinophils Absolute Auto 0.1 X10*3/uL (0.0-0.4); Eosinophils Percent Auto 1.5 % (0-4); Hemoglobin 12.1 g/dl (12.0-16.0); Imm Gran Abs Auto 0.02 X10*3/uL (0.00-0.03); Imm Gran Pct Auto 0.3 % (0.0-0.4); Lymphocytes Absolute Auto 2.3 X10*3/uL (1.2-4.9); Lymphocytes Percent Auto 31.5 % (20-40); Mean Corpuscular HGB Conc 33.6 g/dl (31.0-35.0); Mean Corpuscular Hemoglobin 30.5 pg (27.0-33.0); Mean Corpuscular Volume 90.7 fL (80-98); Mean Platelet Volume 9.3 fL (9.4-12.3); Monocytes Absolute Auto 0.8 X10*3/uL (0.1-1.2); Monocytes Percent Auto 10.5 % (2-11); Neutrophils Absolute Auto 4.1 X10*3/uL (2.0-8.3); Neutrophils Percent Auto 55.8 % (45-73); Platelet Count 342 X10*3/uL (160-400); Red Blood Count 3.97 X10*6/uL (4.20-5.50); Red Cell Distribution Width 13.9 % (11.0-16.0); White Blood Count 7.3 X10*3/uL (4.8-10.8)
[2020-09-06 21:51] VITALS: RESP 16
[2020-09-06] MEDS: HYDROmorphone HCl 1 MG/ML SYRINGE IVPUSH ×2 (21:51→23:02)
[2020-09-06] MEDS: Piperacillin Sodium/Tazobactam 3.375 GM in 0.9 % Sodium Chloride 50 ML IV (21:56)
[2020-09-06] MEDS: Lidocaine HCl 2 % MPF 5 ML VIAL 10 ML INFILTRATI (22:01)
[2020-09-06 22:03] LABS: Lactic Acid 0.8 mmol/L (0.5-2.0)
[2020-09-06 22:16] LABS: Anion Gap 12 (12-20); Blood Urea Nitrogen 6 mg/dL (9-16); Calcium 9.1 mg/dL (8.4-10.2); Carbon Dioxide 24 mmol/L (22-29); Chloride 108 mmol/L (96-108); Creatinine Clr Calc Pharmacy 88.1; Estimated Glomerular Filt Rate > 60; Glucose Random 101 mg/dL (60-115); Potassium 4.8 mmol/L (3.3-5.1); Sodium 139 mmol/L (135-145)
--- NOTE | 2020-09-06 22:39 | ED.SKABFB ---
HPI - Skin/Abscess/Foreign Bdy General Chief complaint: Skin/Abscess/Foreign Body Stated complaint: pain and swelling to right arm Time Seen by Provider: 09/06/20 20:20 Source: patient Mode of arrival: ambulatory Limitations: no limitations History of Present Illness HPI narrative: Patient is 40 years old with history of IVDA use clean since 01/10 still snorting cocaine. History of necrotizing fasciitis right hand and forearm in 05/11 status post fasciotomy at [facility] at that time patient was not using any IV drugs. Since then she has multiple abscesses noticed soft tissue swelling and pain and right distal forearm since yesterday with low-grade fever 100.5 she was seen at [facility] earlier today where she had a CT scan done of the right forearm which showed foci of some subfacial emphysema with associated soft tissue infiltration/inflammation involving the dorsal aspect of the hand to distal 3rd of the forearm slightly concerning for necrotizing fasciitis which is centered along the external digitorum myotendinous junction and tendon which demonstrate diffuse enveloping inflammation which is extending along the proximal course of tendon infiltrating the surrounding dorsal facial planes patient was seen by Dr. Pollard surgeon at [facility] plan was to admit for observation IV antibiotics which she received Zosyn and clindamycin, plan to do surgery in case it gets worse but patient left against medical advice now patient comes here for increase in the swelling and has difficulty in making fist and pain when she moves her fingers which was seen at [facility] also patient is asking for heavy doses of pain medication as in the past. Lab workup at [facility] showed normal WBC count normal lactic acid level. Related Data Home Medications Medication Instructions Recorded Confirmed aripiprazole 1 tab PO DAILY 05/30/20 05/30/20 cephalexin 500 mg PO TID 05/30/20 05/30/20 oxybutynin chloride 1 tab PO DAILY 05/30/20 05/30/20 propranolol 120 mg PO DAILY 05/30/20 05/30/20 Previous Rx's Medication Instructions Recorded mirtazapine 45 mg PO BEDTIME #30 tab 12/14/19 zolpidem 10 mg PO BEDTIME #30 tab 12/14/19 aripiprazole [Abilify] 10 mg PO DAILY #30 tab 06/06/20 chlorpromazine 25 mg PO DAILY #30 tab 06/06/20 duloxetine [Cymbalta] 60 mg PO DAILY #30 cap 06/06/20 mirtazapine 45 mg PO BEDTIME #30 tab 06/06/20 propranolol 60 mg PO DAILY #30 cap 06/06/20 zolpidem [Ambien] 10 mg PO BEDTIME PRN #30 tab 06/06/20 Allergies Allergy/AdvReac Type Severity Reaction Status Date / Time amoxicillin [AMOXICILLIN] Allergy Intermediate STOMACH Verified 12/16/19 18:31 UPSET, stomach pain and diarrhea trazodone [TRAZODONE] Allergy Intermediate UNKNOWN Verified 12/16/19 18:31 ketorolac [From TORADOL] Allergy Mild RASH Verified 12/16/19 18:31 Sulfa (Sulfonamide Allergy Mild GI UPSET Verified 12/16/19 18:31 Antibiotics) acetaminophen [Vicodin] Allergy Unknown Unknown Verified 12/16/19 18:31 magnesium [MAGNESIUM] Allergy Unknown UNKNOWN Verified 12/16/19 18:31 promethazine [From PHENERGAN] Allergy Unknown UNKNOWN Verified 12/16/19 18:31 quetiapine [Seroquel] Allergy Unknown Unknown Verified 12/16/19 18:31 tramadol [TRAMADOL] Allergy Unknown UNK Verified 12/16/19 18:31 doxycycline Allergy Rash Verified 09/06/20 20:02 vancomycin Allergy Anaphylaxis Verified 09/06/20 20:02 hydrocodone [From VICODIN] AdvReac Mild MIGRAINES Verified 12/16/19 18:31 metoclopramide [From REGLAN] AdvReac Unknown PT STATES Verified 12/16/19 18:31 GETTING SHAKY pregabalin [From LYRICA] AdvReac Unknown HALLUCINATI Verified 12/16/19 18:31 ONS Sulfacet-R Allergy Unknown Stomache Uncoded 02/19/19 00:00 pain and diarrhea Review of Systems Review of Systems: Constitutional : No Weight loss, + Fever, No Chills ENT/Mouth : No sore throat, No Rhinorrhea Eyes: No Eye Pain, No Swelling Cardiovascular : No Chest Pain, no palpitations Respiratory : No Cough, No Sputum, no shortness of breath Gastrointestinal : no Nausea, No Vomiting, No Diarrhea, No abdominal Pain, no black stools Genitourinary : No Dysuria, No Urinary Frequency Musculoskeletal : Per HPI Skin : No Skin Lesions, No rash Neuro : No Weakness, No Numbness, No Dizziness, No Headache Psych : No Anxiety/Panic, No Depression Heme/Lymph: No Bruising, No Lymphadenopathy Endocrine : No Polyuria, No Polydipsia All other systems reviewed and are negative [facility] Past Medical History Medical History Anxiety Asthma Chronic pain Cocaine abuse Depression Heroin abuse Migraine Suicide attempt by beta gio overdose Tobacco dependence Tremor Surgical History S/P total abdominal hysterectomy Social History Social History Household Members: None Housing: Apartment Do you presently have visiting nurse or other home services: No Alcohol intake: former Cigarette Packs Per Day: 1 Cigarettes Per Day: 20.0 Years Smoked: 23 years Second Hand Smoke Exposure: Yes Substance Use Type: Crack/Cocaine and Heroin Advance Directives: No Advance Directives Information Provided: No Patient : No service: No Current occupational status: employed Sexual orientation: Don't Know Physical Exam Vital Signs: Vital Signs: Last Vital Signs Temp 98.4 F 09/06/20 20:01 Pulse 96 09/06/20 19:49 Resp 16 09/07/20 00:33 BP 104/58 L 09/06/20 19:49 Pulse Ox 100 09/06/20 19:49 Body Mass Index 29.2 Const: General: healthy appearing and no acute distress Orientation/consciousness: patient oriented x3 HENMT: Head: Yes normocephalic Eyes: General: appearance normal, both eyes and all related structures Neck: Neck: Yes normal visual inspection Resp: Effort & Inspection: normal respiratory effort Auscultation: clear to auscultation bilaterally, no crackles, no rales and no rhonchi Cardio: Jugular venous distension: no JVD Palpation: normal PMI Rate: regular rate Rhythm: regular rhythm Heart sounds: S1 normal heart sound present and S2 normal heart sound present Peripheral pulses: Peripheral pulses 2+ throughout GI: Inspection: Yes normal to inspection Palpation (GI): Soft to palpation and nontender Auscultation: normal bowel sounds : General: Yes no CVA tenderness Back/Spine/Pelvis: Back: no CVA tenderness Thoracic/Lumbar Spine: thoracic and lumbar spine normal to inspection Skin: Other: Soft tissue swelling distal dorsum of forearm Neuro: General: patient oriented x3 and no focal motor deficits Extrem: Other: Right hand fingers in flexed position passive and active extension of all digits painful neurovascular intact Elbow/forearm/wrist images: 1. Soft tissue swelling dorsum of the right forearm 4 x 3 cm in size tender Procedures Abscess I/D Site: upper extremity Side (if applicable): right Local Anesthetic: lidocaine 2% Amount of anesthesia used (mL): 5 Technique: incised with blade Amount of fluid expressed (mL): 1 (Small amount of serosanguineous fluid drained) Sent for culture/gram staining?: Yes Irrigation: No Packing used?: none Central Line Placement Right IJ: Time Out Performed: Yes Patient Placed on Monitor/Pulse Ox: Yes MD Prep: mask, gown and gloves Central Line Prep: Chlorhexidine scrub Local Anesthetic: lidocaine 2% Amount of anesthesia used (mL): 5 Ultrasound Used for Placement: Yes Central Line Lumen Inserted: triple Post Procedure: sutured in place, good blood return, all ports aspirated, flushed, capped and sterile dressing applied Post Procedure X-Ray: tip of catheter in good position Patient Tolerated Procedure: no complications Complications: none MDM - Skin/Abscess/Foreign Bdy MDM Narrative Medical decision making narrative: Patient with suspected necrotizing fasciitis of right forearm. Case discussed with orthopedics Dr. Cedillo here we do not have any hand surgeon available to do the surgery advised to send patient back to [facility]. Case discussed Dr. Pollard at [facility] accepted the patient to the ER. I&D tried at the soft tissue swelling without any significant pus discharge only smallserosanguineous fluid drained Patient been asking for pain medication very frequently, narcotic-seeking behavior suspected 00:11 patient was seen going to bathroom holding 1 L saline bag in her right hand Lab Data Attestation: I reviewed the patient's lab results. Result diagrams: 09/06/20 21:41 09/06/20 21:40 Labs: Lab Results 09/06/20 09/06/20 09/06/20 Range/Units 21:40 21:40 21:41 WBC 7.3 (4.8-10.8) X10*3/uL RBC 3.97 L (4.20-5.50) X10*6/uL Hgb 12.1 (12.0-16.0) g/dl Hct 36.0 L (37-47) % MCV 90.7 (80-98) fL MCH 30.5 (27.0-33.0) pg MCHC 33.6 (31.0-35.0) g/dl RDW 13.9 (11.0-16.0) % Plt Count 342 (160-400) X10*3/uL MPV 9.3 L (9.4-12.3) fL Immature Gran % (Auto) 0.3 (0.0-0.4) % Neut % (Auto) 55.8 (45-73) % Lymph % (Auto) 31.5 (20-40) % [place] % (Auto) 10.5 (2-11) % Eos % (Auto) 1.5 (0-4) % Baso % (Auto) 0.4 (0-2) % Lymph # (Auto) 2.3 (1.2-4.9) X10*3/uL [place] # (Auto) 0.8 (0.1-1.2) X10*3/uL Eos # (Auto) 0.1 (0.0-0.4) X10*3/uL Baso # (Auto) 0.0 (0.0-0.2) X10*3/uL Abs Immat Gran (auto) 0.02 (0.00-0.03) X10*3/uL Absolute Neuts (auto) 4.1 (2.0-8.3) X10*3/uL Absolute Nucleated RBC 0.000 (0.0-0.012) X10*3/uL Nucleated RBC % (auto) 0.0 (0.0-0.2) /100WBC Sodium 139 (135-145) mmol/L Potassium 4.8 D (3.3-5.1) mmol/L Chloride 108 (96-108) mmol/L Carbon Dioxide 24 (22-29) mmol/L Anion Gap 12 (12-20) BUN 6 L (9-16) mg/dL Creatinine 0.80 (0.5-1.4) mg/dL Estim Creat Clear Calc 88.1 Estimated GFR > 60 Random Glucose 101 (60-115) mg/dL Lactic Acid 0.8 (0.5-2.0) mmol/L Calcium 9.1 (8.4-10.2) mg/dL Critical Care Time Critical Care Time Critical Care Time: Yes Total Critical Care Time: 40 Attestation: I spent 40 minutes of critical care, with interventions, assessments, speaking to patient Discharge Plan Discharge Clinical Impression: Necrotizing fasciitis Patient Disposition: [facility] Transfer Details: To [facility] ER under Dr. Bland Prescriptions: No Action chlorpromazine 25 mg tablet 25 mg PO DAILY Qty: 30 RF: 0 zolpidem [Ambien] 10 mg tablet 10 mg PO BEDTIME PRN (Reason: anxiety) Qty: 30 RF: 0 mirtazapine 45 mg tablet 45 mg PO BEDTIME Qty: 30 RF: 0 propranolol 60 mg capsule,extended release 24 hr 60 mg PO DAILY Qty: 30 RF: 0 aripiprazole [Abilify] 10 mg tablet 10 mg PO DAILY Qty: 30 RF: 0 duloxetine [Cymbalta] 60 mg capsule,delayed release(DR/EC) 60 mg PO DAILY Qty: 30 RF: 0 mirtazapine 45 mg tablet 45 mg PO BEDTIME Qty: 30 RF: 0 zolpidem 10 mg tablet 10 mg PO BEDTIME Qty: 30 RF: 0 oxybutynin chloride 10 mg tablet extended release 24hr 1 tab PO DAILY RF: 0 cephalexin 500 mg capsule 500 mg PO TID RF: 0 propranolol 120 mg capsule,extended release 24 hr 120 mg PO DAILY RF: 0 aripiprazole 10 mg tablet 1 tab PO DAILY RF: 0 Interventions: Acute Care Transfer Worksheet (ED) Last Done: 09/07/20 00:46 Discharge Date/Time: 09/07/20 00:47
[2020-09-06] MEDS: Clindamycin Phosphate/D5W 600 MG/50 ML PIGGYBACK 100 MG IV (22:45)
[2020-09-06 22:53] VITALS: RESP 16
[2020-09-06] MEDS: diphenhydrAMINE HCL 50 MG/ML VIAL 25 MG IVPUSH (22:58)
[2020-09-06 23:02] VITALS: RESP 16
[2020-09-06] MEDS: 0.9 % Sodium Chloride 1,000 ML 999 ML IVCONT (23:05)
[2020-09-07 00:31] VITALS: RESP 16
[2020-09-07] MEDS: HYDROmorphone HCl 1 MG/ML SYRINGE IVPUSH (00:31)
[2020-09-07 00:33] VITALS: RESP 16
--- NOTE | 2020-09-07 00:46 | PC.NURSE ---
nurse to nurse report given to Beth LARSEN at [facility] ED
== END 2020-09-07 00:47 | disposition short-term general hospital (02) ==
PROVIDERS: Emergency Provider Internal Medicine
DX: M72.6 Necrotizing fasciitis (principal); M79.89 Other specified soft tissue disorders; F11.10 Opioid abuse, uncomplicated; F14.10 Cocaine abuse, uncomplicated
CPT/HCPCS: 10060; 36415; 36556; 71045; 80048; 83605; 85025; 87040; 87071; 87205; 96361; 96365; 96368; 96375; 96376; 99285; 99291; J1170; J1200; J2543

== ENCOUNTER 2020-10-08 11:24 | Inpatient (IN) | payer MEDICARE, MEDICAID, SELFPAY ==
[2020-10-08] VITALS (14 sets, daily range): BP systolic 96–158; BP diastolic 53–99; PULSE 65–118; RESP 18–22; TEMP 36.8–37; O2SAT 96–100; BMI 28.3
--- NOTE | 2020-10-08 11:46 | ECG_ITS ---
Test Reason : OVERDOSE Blood Pressure : / mmHG Vent. Rate : 082 BPM Atrial Rate : 082 BPM P-R Int : 154 ms QRS Dur : 082 ms QT Int : 376 ms P-R-T Axes : 066 022 048 degrees QTc Int : 439 ms Normal sinus rhythm Normal ECG When compared with ECG of 29-MAY-2020 19:27, No significant change was found Referred By: Paulina Castro Electronically Signed By:ROCCO CORDOVA
[2020-10-08 12:33] LABS: MANUAL DIFF FLAG NO
[2020-10-08 12:37] LABS: Basophils Percent Auto 0.2 % (0-2); Eosinophils Percent Auto 0.1 % (0-4); Hematocrit 33.8 % (37-47); Hemoglobin 11.2 g/dl (12.0-16.0); Imm Gran Abs Auto 0.06 X10*3/uL (0.00-0.03); Imm Gran Pct Auto 0.5 % (0.0-0.4); Lymphocytes Absolute Auto 1.2 X10*3/uL (1.2-4.9); Lymphocytes Percent Auto 9.8 % (20-40); Mean Corpuscular HGB Conc 33.1 g/dl (31.0-35.0); Mean Corpuscular Hemoglobin 29.6 pg (27.0-33.0); Mean Corpuscular Volume 89.4 fL (80-98); Mean Platelet Volume 9.6 fL (9.4-12.3); Monocytes Absolute Auto 0.9 X10*3/uL (0.1-1.2); Neutrophils Absolute Auto 10.3 X10*3/uL (2.0-8.3); Neutrophils Percent Auto 82.4 % (45-73); Platelet Count 350 X10*3/uL (160-400); Red Blood Count 3.78 X10*6/uL (4.20-5.50); Red Cell Distribution Width 13.6 % (11.0-16.0); White Blood Count 12.5 X10*3/uL (4.8-10.8)
[2020-10-08 12:53] LABS: COVID-19 Test Negative (Negative)
[2020-10-08 13:03] LABS: Ethanol < 10 mg/dL
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
[2020-10-08 13:13] LABS: HCG Quantitative < 2 mIU/mL
[2020-10-08 13:17] LABS: Alanine Aminotransferase 22 U/L (0-31); Alkaline Phosphatase 104 U/L (39-117); Anion Gap 14 (12-20); Aspartate Amino Transferase 15 U/L (5-31); Bilirubin Direct 0.2 mg/dL (0.0-0.5); Bilirubin Total 0.3 mg/dL (0.0-1.0); Blood Urea Nitrogen 6 mg/dL (9-16); Calcium 8.9 mg/dL (8.4-10.2); Carbon Dioxide 24 mmol/L (22-29); Chloride 102 mmol/L (96-108); Creatinine Clr Calc Pharmacy 86.7; Estimated Glomerular Filt Rate > 60; Glucose Random 163 mg/dL (60-115); Lipase 6 U/L (8-78); Magnesium 2.2 mg/dL (1.6-2.6); Potassium 3.7 mmol/L (3.3-5.1); Salicylate < 5.0 mg/dL (15-30); Sodium 136 mmol/L (135-145); Total Protein 7.2 g/dL (6.5-8.0)
[2020-10-08 13:52] LABS: Acetaminophen LAB < 1 mcg/mL (<30)
[2020-10-08] MEDS: 0.9 % Sodium Chloride 1,000 ML 999 ML IVCONT ×2 (16:14→16:16)
[2020-10-08] MEDS: Naloxone HCl 2 MG/2 ML SYRINGE IVPUSH (16:16)
--- NOTE | 2020-10-08 16:17 | PC.NURSE ---
per mlp order 20g iv placed in rt foot due to hyptonstion and ivp narcan given.
--- NOTE | 2020-10-08 16:53 | PC.NURSE ---
Pt is now on section 12.
--- NOTE | 2020-10-08 16:54 | PC.NURSE ---
Plan is to finish IVF then cleared by provider to pod.
[2020-10-08] MEDS: diphenhydrAMINE HCL 50 MG/ML VIAL IVPUSH (17:00)
[2020-10-08] MEDS: Haloperidol Lactate 5 MG/ML VIAL IM (17:20)
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
--- NOTE | 2020-10-08 18:41 | PC.NURSE ---
per poision control, continue to watch patient 4-6 hrs after narcan adminstration.
--- NOTE | 2020-10-08 18:53 | PC.NURSE ---
This RN assuming care of pt at 1850. Pt remains in bilateral wrist restraints, NSR on ekg monitor tech, VSS .Pt with garbled speech, then yelling Camryn. Pt reoriented. 1:1 sitter at bedside
--- NOTE | 2020-10-08 19:12 | PC.NURSE ---
Pt assessed for readiness for restraints to be removed. Bilateral wrists restraints removed. Pt calm, cooperative, quickly returning to sleep. Pt with +CMS all extremities. 1:1 sitter remains at bedside. Stretcher low locked, rails raised.
[2020-10-08 23:03] LABS: Amphetamine Screen Urine Not Detected (Not Detect); Barbiturates, Urine Not Detected (Not Detect); Benzodiazepines Screen Urine Not Detected (Not Detect); Cannabinoid Screen Urine Not Detected (Not Detect); Cocaine Screen Urine POSITIVE (Not Detect); Fentanyl, urine POSITIVE (Not Detect); Opiate Screen Urine POSITIVE (Not Detect); Phencyclidine Screen Urine Not Detected (Not Detect)
[2020-10-08 23:38] LABS: Glucose Urine UA NEG (NEG); Leukocyte Esterase Urine NEG (NEG); Nitrite Urine NEG (NEG); Specific Gravity - Urine <= 1.005 (1.005-1.025); Urine Blood NEG (NEG); Urine Ketones 5 MG/DL (NEG); Urine Protein NEG (NEG-TRACE)
[2020-10-08 23:40] LABS: Appearance Urine CLEAR; Color Urine YELLOW
--- NOTE | 2020-10-09 00:52 | MHC.CARE ---
Pt is still unable to participate at this time. Pt is sleepy and will best benefit from an evaluation in the morning.
--- NOTE | 2020-10-09 01:42 | PC.NURSE ---
Patient in bed appears sleeping, no distress observed/reported, [facility] referral completed via smart-sheet, called and spoke with Stella/confirmed receipt of referral, patient will be seen in the morning, will continue to monitor
[2020-10-09 02:36] VITALS: BP 104/69; PULSE 71; RESP 16; TEMP 36.1; O2SAT 98
[2020-10-09 04:07] VITALS: BP 104/69; PULSE 71
[2020-10-09] MEDS: cloNIDine HCL 0.1 MG TABLET PO (04:07)
[2020-10-09] MEDS: chlorproMAZINE HCl 25 MG TABLET PO ×3 (04:07→20:34)
--- NOTE | 2020-10-09 04:09 | PC.NURSE ---
Patient woke up came out of room asking for medication to help reduce her racing thought and anxiety, PRN Thorazine and Cloniden administered as ordered/compliant with meds/pending effect, will continue to monitor.
--- NOTE | 2020-10-09 05:56 | PC.NURSE ---
Patient currently appears sleeping, no distress observed/reported at this time, + effect from PRN Thorazine, [facility] referral completed via smart sheet and confirmed by [place], patient will be seen in the morning, patient is S/P chemical restraint, VSS, will continue to monitor.
--- NOTE | 2020-10-09 07:11 | PC.NURSE ---
patient appears to remain at rest at present, respirations even and unlabored. patient appears in no distress at present.
[2020-10-09] MEDS: ARIPiprazole 10 MG TABLET PO (09:31)
[2020-10-09] MEDS: Topiramate 100 MG TABLET PO (09:32)
[2020-10-09 09:33] VITALS: BP 104/69; PULSE 71
[2020-10-09] MEDS: Omeprazole 20 MG CAPSULE.DR PO (09:33)
[2020-10-09] MEDS: DULoxetine HCl 60 MG CAPSULE.DR PO (09:33)
[2020-10-09] MEDS: Propranolol HCL LA 60 MG CAP.SA.24H 120 MG PO (09:33)
--- NOTE | 2020-10-09 09:52 | PC.NURSE ---
patient came out to ask for medications, t/w had explained to her that i had just delivered her meds to her in her room approxiamtely 15 minutes earlier. patient stated tera been coming out since 6 am t/w explained to her she had reveived as needed meds at 4am, and some time needed to elapse between doses (meds are TID, plus some time should elapse to allow affect of given meds. pat states fuck you and returns to room.
--- NOTE | 2020-10-09 16:19 | PC.NURSE ---
40 y/o female admitted from our ED after an OD on her clonidine. Utox positive for opiates, fentanyl and cocaine. Pt denies using anything other than marijuana. Pt arrives to unit and immediately retires to her bed. Pt minimally interactive with admissioon rocess, answering no to most questions and not even rolling over to face Tw. Pt denies any medical concerns but has a large healed scar on her right posterior forearm, several sutures remain despite area being well healed. Pt states the scar is s/p fasciotomy. pt is hypotensive 82/49, fluids provided at bedside and encouraged.
[2020-10-09 16:39] VITALS: BP 82/49; PULSE 64; RESP 16; TEMP 36.4; O2SAT 97
[2020-10-09] MEDS: Mirtazapine 15 MG TABLET 45 MG PO (20:30)
[2020-10-09] MEDS: Buprenorphine/Naloxone 8/2 mg FILM 1 FILM SUBLINGUAL (20:30)
[2020-10-09] MEDS: hydrOXYzine HCL 25 MG TABLET PO (20:34)
[2020-10-09] MEDS: Acetaminophen 325 MG TABLET 650 MG PO (20:35)
[2020-10-09 20:38] VITALS: BP 93/47; PULSE 62; TEMP 36.9; O2SAT 97
[2020-10-09 23:02] VITALS: BP 101/51; PULSE 63; O2SAT 97
[2020-10-10] MEDS: Albuterol Sulfate 90 MCG 8 GM INHALER 2 PUFF INHALE (03:14)
[2020-10-10 03:16] VITALS: BP 120/76; PULSE 63; RESP 18; TEMP 36.4
[2020-10-10] MEDS: hydrOXYzine HCL 25 MG TABLET PO ×2 (03:18→16:42)
[2020-10-10] MEDS: chlorproMAZINE HCl 25 MG TABLET PO ×2 (03:18→16:40)
--- NOTE | 2020-10-10 03:21 | PC.NURSE ---
Nasal congestion noted when oob at this time, reports ''I feel like shit'' 120/76, 63, 97.6
[2020-10-10 06:00] VITALS: BP 89/35; PULSE 85; TEMP 36.6; O2SAT 98
[2020-10-10 06:27] LABS: MANUAL DIFF FLAG NO
[2020-10-10 06:33] LABS: Basophils Percent Auto 0.2 % (0-2); Eosinophils Absolute Auto 0.1 X10*3/uL (0.0-0.4); Eosinophils Percent Auto 1.3 % (0-4); Hematocrit 31.1 % (37-47); Hemoglobin 10.4 g/dl (12.0-16.0); Imm Gran Abs Auto 0.07 X10*3/uL (0.00-0.03); Imm Gran Pct Auto 0.7 % (0.0-0.4); Lymphocytes Absolute Auto 1.7 X10*3/uL (1.2-4.9); Lymphocytes Percent Auto 17.9 % (20-40); Mean Corpuscular HGB Conc 33.4 g/dl (31.0-35.0); Mean Corpuscular Hemoglobin 29.8 pg (27.0-33.0); Mean Corpuscular Volume 89.1 fL (80-98); Mean Platelet Volume 9.6 fL (9.4-12.3); Monocytes Absolute Auto 0.9 X10*3/uL (0.1-1.2); Monocytes Percent Auto 9.2 % (2-11); Neutrophils Absolute Auto 6.9 X10*3/uL (2.0-8.3); Neutrophils Percent Auto 70.7 % (45-73); Platelet Count 345 X10*3/uL (160-400); Red Blood Count 3.49 X10*6/uL (4.20-5.50); Red Cell Distribution Width 13.5 % (11.0-16.0); White Blood Count 9.7 X10*3/uL (4.8-10.8)
--- NOTE | 2020-10-10 06:46 | PC.NURSE ---
DR. dexter notified of low bp
[2020-10-10 07:05] LABS: Cholesterol 147 mg/dL; HDL Cholesterol 35 mg/dL; LDL Cholesterol Calculated 86 mg/dl; Triglycerides 130 mg/dL
[2020-10-10 07:26] LABS: Thyroid Stimulating Hormone 0.69 uIU/mL (0.32-4.0)
[2020-10-10 08:00] LABS: Estimated Average Glucose 97 mg/dL
[2020-10-10] MEDS: Buprenorphine/Naloxone 8/2 mg FILM 1 FILM SUBLINGUAL ×2 (08:15→20:55)
[2020-10-10] MEDS: DULoxetine HCl 60 MG CAPSULE.DR PO (08:16)
[2020-10-10] MEDS: ARIPiprazole 10 MG TABLET PO (08:16)
[2020-10-10] MEDS: Omeprazole 20 MG CAPSULE.DR PO (08:16)
[2020-10-10] MEDS: Propranolol HCL LA 60 MG CAP.SA.24H 120 MG PO (08:17)
[2020-10-10 09:00] LABS: Folate 11.4 ng/mL (> or = 4.0); Vitamin B12 363 pg/mL (200-900)
[2020-10-10 10:20] VITALS: BP 96/61; PULSE 60; RESP 16; TEMP 36.5; O2SAT 96
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
[2020-10-10 16:40] VITALS: BP 112/61
[2020-10-10] MEDS: cloNIDine HCL 0.1 MG TABLET PO (16:40)
[2020-10-10 18:00] VITALS: PULSE 61; RESP 16; TEMP 36.7
[2020-10-10] MEDS: Mirtazapine 15 MG TABLET 45 MG PO (20:55)
[2020-10-10 23:01] LABS: Glucose, Whole Blood 78 mg/dL (60-115)
[2020-10-11] MEDS: Acetaminophen 325 MG TABLET 650 MG PO ×2 (05:52→17:30)
[2020-10-11 05:53] VITALS: BP 135/75; PULSE 63
[2020-10-11] MEDS: chlorproMAZINE HCl 25 MG TABLET PO ×2 (05:53→13:34)
[2020-10-11] MEDS: cloNIDine HCL 0.1 MG TABLET PO ×2 (05:53→13:34)
[2020-10-11] MEDS: Omeprazole 20 MG CAPSULE.DR PO (05:53)
[2020-10-11] MEDS: hydrOXYzine HCL 25 MG TABLET PO ×2 (05:53→12:20)
[2020-10-11] MEDS: Albuterol Sulfate 90 MCG 8 GM INHALER 2 PUFF INHALE ×3 (06:25→17:30)
--- NOTE | 2020-10-11 07:19 | HO.PSYCHPN ---
Subjective Subjective Date of Service: 10/13/20 Reason For Visit: SI Interim History: Pt presents as somewhat tearful. She reports sleeping and eating well. She reports feeling very anxious and current medications not helping for anxiety. We discussed increasing thorazine. She denies SI/HI. Medication Compliance: Yes Side effects from medications: No Review of Systems Review of Systems Constitutional : No Fever, No Chills ENT/Mouth : No Ear Pain, No Nasal Congestion, No sore throat Eyes: No Eye Pain, No Swelling, No Redness Cardiovascular : No Chest Pain, No SOB Respiratory : No Cough, No Sputum, No Dyspnea Gastrointestinal : No ingestions, No Nausea, No Vomiting, No Diarrhea, No Hematochezia, No Melena Genitourinary : No Dysuria, No Urinary Frequency, No Hematuria Musculoskeletal : No Myalgias Skin : No Skin Lesions, No rash Neuro : No Weakness, No Numbness, No Paresthesias, No Dizziness, No Headache Psych : Positive anxiety/depression/SI attempt to overdose on her medications, No HI, No AVH Heme/Lymph: No Lymphadenopathy Endocrine : No Polyuria, No Polydipsia Yes all other systems are reviewed and are negative Mental Status Exam Mental Status Exam Narrative: under blanket, eyes closed. not cooperative with interview. no PMA/PMR observed. speech soft, terse. thoughts linear and logical. affect constricted and non-labile. mood not assessed. no SI/HI/AVH expressed. Diagnostics Vital Signs (24Hr): Vital Signs - 24 hr 10/12/20 08:10 10/12/20 10:29 10/12/20 14:49 Pulse Rate 68 70 70 Blood Pressure 132/83 95/50 L 91/53 L Body Mass Index 28.3 Labs Results: 10/10/20 06:19 10/08/20 12:28 Medications Medications Current Medications Generic Name Dose Route Start Last Admin Trade Name Freq PRN Reason Stop Dose Admin Acetaminophen 650 mg 10/09/20 14:05 10/12/20 17:56 Acetaminophen 325 Mg Tablet PO 650 mg Q6H PRN Administration Headache/Pain Mild Scale (1-3) Al Hydroxide/Mg Hydroxide 30 ml 10/09/20 14:05 Magnesium Hydrox/Alum Hydrox 30 Ml Oral.Susp PO Q6H PRN Heartburn/Nausea Albuterol Sulfate 2 puff 10/08/20 23:47 10/12/20 17:11 Albuterol Sulfate 90 Mcg 8 Gm Inhaler INHALE 2 puff Q4H PRN Administration Shortness Of Breath Aripiprazole 10 mg 10/09/20 09:00 10/12/20 08:10 Aripiprazole 10 Mg Tablet PO 10 mg DAILY STEPHANIE Administration Buprenorphine 300 mg 10/09/20 01:00 10/09/20 01:10 Buprenorphine Extended Release 300 Mg/1.5 Ml Daniel.Syr SUBCUT Not Given Q30D STEPHANIE Buprenorphine/Naloxone 1 film 10/09/20 09:00 10/12/20 21:02 Buprenorphine/Naloxone 8/2 Mg Film SUBLINGUAL 1 film BID STEPHANIE Administration Chlorpromazine HCl 75 mg 10/12/20 15:43 10/13/20 06:32 Chlorpromazine Hcl 25 Mg Tablet PO 75 mg Q4H PRN Administration Agitation Clonidine HCl 0.1 mg 10/08/20 23:47 10/12/20 14:49 Clonidine Hcl 0.1 Mg Tablet PO 0.1 mg BID PRN Administration Anxiety Protocol Duloxetine HCl 60 mg 10/09/20 09:00 10/12/20 08:10 Duloxetine Hcl 60 Mg Capsule. PO 60 mg DAILY STEPHANIE Administration Hydroxyzine HCl 25 mg 10/09/20 14:05 10/12/20 17:56 Hydroxyzine Hcl 25 Mg Tablet PO 25 mg Q6H PRN Administration Anxiety Magnesium Hydroxide 30 ml 10/09/20 14:05 Milk Of Magnesia 30 Ml Oral.Susp PO DAILY PRN Constipation Mirtazapine 45 mg 10/09/20 21:00 10/12/20 21:02 Mirtazapine 15 Mg Tablet PO 45 mg BEDTIME STEPHANIE Administration Nicotine Polacrilex 2 mg 10/10/20 10:23 10/12/20 17:30 Nicotine Polacrilex 2 Mg Gum BUCCAL 2 mg Q2H PRN Administration Nicotine Cravings Omeprazole 20 mg 10/09/20 06:30 10/13/20 06:34 Omeprazole 20 Mg Capsule. PO 20 mg DAILY@0630 STEPHANIE Administration Oxybutynin Chloride 10 mg 10/09/20 09:00 10/12/20 08:10 Oxybutynin Chloride Er 5 Mg Tab.Er.24 PO 10 mg DAILY STEPHANIE Administration Prazosin HCl 2 - 4 mg 10/08/20 23:47 Prazosin Hcl 1 Mg Capsule PO BEDTIME PRN nightmares Protocol Propranolol HCl 120 mg 10/09/20 09:00 10/12/20 08:10 Propranolol Hcl La 60 Mg Cap.Sa.24h PO 120 mg DAILY STEPHANIE Administration Protocol Sumatriptan Succinate 6 mg 10/09/20 12:40 Sumatriptan Succinate 6 Mg Vial SUBCUT DAILY PRN Migraine Headache Allergies Allergies Allergy/AdvReac Type Severity Reaction Status Date / Time amoxicillin [AMOXICILLIN] Allergy Intermediate STOMACH Verified 12/16/19 18:31 UPSET, stomach pain and diarrhea trazodone [TRAZODONE] Allergy Intermediate UNKNOWN Verified 12/16/19 18:31 ketorolac [From TORADOL] Allergy Mild RASH Verified 12/16/19 18:31 Sulfa (Sulfonamide Allergy Mild GI UPSET Verified 12/16/19 18:31 Antibiotics) acetaminophen [Vicodin] Allergy Unknown Unknown Verified 12/16/19 18:31 magnesium [MAGNESIUM] Allergy Unknown UNKNOWN Verified 12/16/19 18:31 promethazine [From PHENERGAN] Allergy Unknown UNKNOWN Verified 12/16/19 18:31 quetiapine [Seroquel] Allergy Unknown Unknown Verified 12/16/19 18:31 tramadol [TRAMADOL] Allergy Unknown UNK Verified 12/16/19 18:31 doxycycline Allergy Rash Verified 09/06/20 20:02 vancomycin Allergy Anaphylaxis Verified 09/06/20 20:02 hydrocodone [From VICODIN] AdvReac Mild MIGRAINES Verified 12/16/19 18:31 metoclopramide [From REGLAN] AdvReac Unknown PT STATES Verified 12/16/19 18:31 GETTING SHAKY pregabalin [From LYRICA] AdvReac Unknown HALLUCINATI Verified 12/16/19 18:31 ONS Sulfacet-R Allergy Unknown Stomache Uncoded 02/19/19 00:00 pain and diarrhea Assessment & Plan Assessment & Plan (1) Major depressive disorder, recurrent severe without psychotic features: Status: Acute Code(s): F33.2 - Major depressive disorder, recurrent severe without psychotic features Assessment and Plan: keep safe on locked unit. continue outpt meds. denies SI upon arrival on unit. supportive care during cocaine withdrawal dysphoria. (2) Opioid use disorder: Status: Acute Code(s): F11.99 - Opioid use, unspecified with unspecified opioid-induced disorder Assessment and Plan: continue on bupe. (3) Cocaine abuse: Status: Acute Code(s): F14.10 - Cocaine abuse, uncomplicated Assessment and Plan: abstain. supportive care during detox. Greater than 50% of the session was spent on counseling and/or coordination of care Reason for contiued inpatient stay Substantial Risk for: harm to self
[2020-10-11 09:18] VITALS: BP 111/70; PULSE 63
[2020-10-11] MEDS: Propranolol HCL LA 60 MG CAP.SA.24H 120 MG PO (09:18)
[2020-10-11] MEDS: ARIPiprazole 10 MG TABLET PO (09:18)
[2020-10-11] MEDS: DULoxetine HCl 60 MG CAPSULE.DR PO (09:18)
[2020-10-11] MEDS: Buprenorphine/Naloxone 8/2 mg FILM 1 FILM SUBLINGUAL ×2 (09:18→20:15)
[2020-10-11 09:24] VITALS: BP 111/70; PULSE 63; RESP 16; TEMP 36.7; O2SAT 97
[2020-10-11 13:34] VITALS: BP 103/65; PULSE 69
[2020-10-11] MEDS: Nicotine Polacrilex 2 MG GUM BUCCAL ×2 (14:17→17:03)
[2020-10-11] MEDS: chlorproMAZINE HCl 25 MG TABLET 50 MG PO (15:32)
[2020-10-11 18:00] VITALS: BP 94/57; PULSE 60; RESP 16; TEMP 36.4; O2SAT 97
[2020-10-11] MEDS: Mirtazapine 15 MG TABLET 45 MG PO (20:15)
[2020-10-12] MEDS: Albuterol Sulfate 90 MCG 8 GM INHALER 2 PUFF INHALE ×2 (01:45→17:11)
[2020-10-12] MEDS: chlorproMAZINE HCl 25 MG TABLET 50 MG PO ×3 (01:45→12:05)
[2020-10-12 06:00] VITALS: BP 132/83; PULSE 68; RESP 18; TEMP 36.3; O2SAT 97
[2020-10-12] MEDS: Omeprazole 20 MG CAPSULE.DR PO (06:36)
--- NOTE | 2020-10-12 07:20 | HO.PSYCHPN ---
Subjective Subjective Date of Service: 10/13/20 Reason For Visit: SI Interim History: Pt reports her needs are not being met and her anxiety is being ignored. Despite multiple medications for anxiety, pt asks to be prescribed ativan, which she was informed will not be prescribed given risks of misuse/abuse as she continues to work on her substance use recovery. She later agreed to another increase in thorazine. She has been visible in the unit. Review of Systems Review of Systems Constitutional : No Fever, No Chills ENT/Mouth : No Ear Pain, No Nasal Congestion, No sore throat Eyes: No Eye Pain, No Swelling, No Redness Cardiovascular : No Chest Pain, No SOB Respiratory : No Cough, No Sputum, No Dyspnea Gastrointestinal : No ingestions, No Nausea, No Vomiting, No Diarrhea, No Hematochezia, No Melena Genitourinary : No Dysuria, No Urinary Frequency, No Hematuria Musculoskeletal : No Myalgias Skin : No Skin Lesions, No rash Neuro : No Weakness, No Numbness, No Paresthesias, No Dizziness, No Headache Psych : Positive anxiety/depression/SI attempt to overdose on her medications, No HI, No AVH Heme/Lymph: No Lymphadenopathy Endocrine : No Polyuria, No Polydipsia Yes all other systems are reviewed and are negative Mental Status Exam Mental Status Exam Narrative: under blanket, eyes closed. not cooperative with interview. no PMA/PMR observed. speech soft, terse. thoughts linear and logical. affect constricted and non-labile. mood not assessed. no SI/HI/AVH expressed. Diagnostics Vital Signs (24Hr): Vital Signs - 24 hr 10/12/20 08:10 10/12/20 10:29 10/12/20 14:49 Pulse Rate 68 70 70 Blood Pressure 132/83 95/50 L 91/53 L Body Mass Index 28.3 Labs Results: 10/10/20 06:19 10/08/20 12:28 Medications Medications Current Medications Generic Name Dose Route Start Last Admin Trade Name Freq PRN Reason Stop Dose Admin Acetaminophen 650 mg 10/09/20 14:05 10/12/20 17:56 Acetaminophen 325 Mg Tablet PO 650 mg Q6H PRN Administration Headache/Pain Mild Scale (1-3) Al Hydroxide/Mg Hydroxide 30 ml 10/09/20 14:05 Magnesium Hydrox/Alum Hydrox 30 Ml Oral.Susp PO Q6H PRN Heartburn/Nausea Albuterol Sulfate 2 puff 10/08/20 23:47 10/12/20 17:11 Albuterol Sulfate 90 Mcg 8 Gm Inhaler INHALE 2 puff Q4H PRN Administration Shortness Of Breath Aripiprazole 10 mg 10/09/20 09:00 10/12/20 08:10 Aripiprazole 10 Mg Tablet PO 10 mg DAILY STEPHANIE Administration Buprenorphine 300 mg 10/09/20 01:00 10/09/20 01:10 Buprenorphine Extended Release 300 Mg/1.5 Ml Daniel.Syr SUBCUT Not Given Q30D STEPHANIE Buprenorphine/Naloxone 1 film 10/09/20 09:00 10/12/20 21:02 Buprenorphine/Naloxone 8/2 Mg Film SUBLINGUAL 1 film BID STEPHANIE Administration Chlorpromazine HCl 75 mg 10/12/20 15:43 10/13/20 06:32 Chlorpromazine Hcl 25 Mg Tablet PO 75 mg Q4H PRN Administration Agitation Clonidine HCl 0.1 mg 10/08/20 23:47 10/12/20 14:49 Clonidine Hcl 0.1 Mg Tablet PO 0.1 mg BID PRN Administration Anxiety Protocol Duloxetine HCl 60 mg 10/09/20 09:00 10/12/20 08:10 Duloxetine Hcl 60 Mg Capsule. PO 60 mg DAILY STEPHANIE Administration Hydroxyzine HCl 25 mg 10/09/20 14:05 10/12/20 17:56 Hydroxyzine Hcl 25 Mg Tablet PO 25 mg Q6H PRN Administration Anxiety Magnesium Hydroxide 30 ml 10/09/20 14:05 Milk Of Magnesia 30 Ml Oral.Susp PO DAILY PRN Constipation Mirtazapine 45 mg 10/09/20 21:00 10/12/20 21:02 Mirtazapine 15 Mg Tablet PO 45 mg BEDTIME STEPHANIE Administration Nicotine Polacrilex 2 mg 10/10/20 10:23 10/12/20 17:30 Nicotine Polacrilex 2 Mg Gum BUCCAL 2 mg Q2H PRN Administration Nicotine Cravings Omeprazole 20 mg 10/09/20 06:30 10/13/20 06:34 Omeprazole 20 Mg Capsule. PO 20 mg DAILY@0630 STEPHANIE Administration Oxybutynin Chloride 10 mg 10/09/20 09:00 10/12/20 08:10 Oxybutynin Chloride Er 5 Mg Tab.Er.24 PO 10 mg DAILY STEPHANIE Administration Prazosin HCl 2 - 4 mg 10/08/20 23:47 Prazosin Hcl 1 Mg Capsule PO BEDTIME PRN nightmares Protocol Propranolol HCl 120 mg 10/09/20 09:00 10/12/20 08:10 Propranolol Hcl La 60 Mg Cap.Sa.24h PO 120 mg DAILY STEPHANIE Administration Protocol Sumatriptan Succinate 6 mg 10/09/20 12:40 Sumatriptan Succinate 6 Mg Vial SUBCUT DAILY PRN Migraine Headache Allergies Allergies Allergy/AdvReac Type Severity Reaction Status Date / Time amoxicillin [AMOXICILLIN] Allergy Intermediate STOMACH Verified 12/16/19 18:31 UPSET, stomach pain and diarrhea trazodone [TRAZODONE] Allergy Intermediate UNKNOWN Verified 12/16/19 18:31 ketorolac [From TORADOL] Allergy Mild RASH Verified 12/16/19 18:31 Sulfa (Sulfonamide Allergy Mild GI UPSET Verified 12/16/19 18:31 Antibiotics) acetaminophen [Vicodin] Allergy Unknown Unknown Verified 12/16/19 18:31 magnesium [MAGNESIUM] Allergy Unknown UNKNOWN Verified 12/16/19 18:31 promethazine [From PHENERGAN] Allergy Unknown UNKNOWN Verified 12/16/19 18:31 quetiapine [Seroquel] Allergy Unknown Unknown Verified 12/16/19 18:31 tramadol [TRAMADOL] Allergy Unknown UNK Verified 12/16/19 18:31 doxycycline Allergy Rash Verified 09/06/20 20:02 vancomycin Allergy Anaphylaxis Verified 09/06/20 20:02 hydrocodone [From VICODIN] AdvReac Mild MIGRAINES Verified 12/16/19 18:31 metoclopramide [From REGLAN] AdvReac Unknown PT STATES Verified 12/16/19 18:31 GETTING SHAKY pregabalin [From LYRICA] AdvReac Unknown HALLUCINATI Verified 12/16/19 18:31 ONS Sulfacet-R Allergy Unknown Stomache Uncoded 02/19/19 00:00 pain and diarrhea Assessment & Plan Assessment & Plan (1) Major depressive disorder, recurrent severe without psychotic features: Status: Acute Code(s): F33.2 - Major depressive disorder, recurrent severe without psychotic features Assessment and Plan: keep safe on locked unit. continue outpt meds. denies SI upon arrival on unit. supportive care during cocaine withdrawal dysphoria. (2) Opioid use disorder: Status: Acute Code(s): F11.99 - Opioid use, unspecified with unspecified opioid-induced disorder Assessment and Plan: continue on bupe. (3) Cocaine abuse: Status: Acute Code(s): F14.10 - Cocaine abuse, uncomplicated Assessment and Plan: abstain. supportive care during detox. Greater than 50% of the session was spent on counseling and/or coordination of care Reason for contiued inpatient stay Substantial Risk for: harm to self
[2020-10-12] MEDS: Buprenorphine/Naloxone 8/2 mg FILM 1 FILM SUBLINGUAL ×2 (08:09→21:02)
[2020-10-12 08:10] VITALS: BP 132/83; PULSE 68
[2020-10-12] MEDS: DULoxetine HCl 60 MG CAPSULE.DR PO (08:10)
[2020-10-12] MEDS: ARIPiprazole 10 MG TABLET PO (08:10)
[2020-10-12] MEDS: Propranolol HCL LA 60 MG CAP.SA.24H 120 MG PO (08:10)
[2020-10-12 10:29] VITALS: BP 95/50; PULSE 70
[2020-10-12] MEDS: cloNIDine HCL 0.1 MG TABLET PO ×2 (10:29→14:49)
[2020-10-12] MEDS: hydrOXYzine HCL 25 MG TABLET PO ×2 (10:29→17:56)
[2020-10-12] MEDS: Acetaminophen 325 MG TABLET 650 MG PO ×2 (12:01→17:56)
[2020-10-12] MEDS: Nicotine Polacrilex 2 MG GUM BUCCAL ×3 (12:01→17:30)
[2020-10-12 14:49] VITALS: BP 91/53; PULSE 70
[2020-10-12] MEDS: chlorproMAZINE HCl 25 MG TABLET 75 MG PO (15:52)
[2020-10-12] MEDS: Mirtazapine 15 MG TABLET 45 MG PO (21:02)
[2020-10-13 06:00] VITALS: BP 104/57; PULSE 56; RESP 16; TEMP 36.5; O2SAT 99
[2020-10-13] MEDS: chlorproMAZINE HCl 25 MG TABLET 75 MG PO ×4 (06:32→18:32)
[2020-10-13] MEDS: Omeprazole 20 MG CAPSULE.DR PO (06:34)
[2020-10-13 08:15] VITALS: BP 104/57; PULSE 56
[2020-10-13] MEDS: DULoxetine HCl 60 MG CAPSULE.DR PO (08:15)
[2020-10-13] MEDS: Propranolol HCL LA 60 MG CAP.SA.24H 120 MG PO (08:15)
[2020-10-13] MEDS: ARIPiprazole 10 MG TABLET PO (08:15)
[2020-10-13] MEDS: Buprenorphine/Naloxone 8/2 mg FILM 1 FILM SUBLINGUAL ×2 (08:15→20:09)
[2020-10-13] MEDS: Nicotine Polacrilex 2 MG GUM BUCCAL ×2 (08:20→18:32)
[2020-10-13] MEDS: cloNIDine HCL 0.1 MG TABLET PO (08:20)
[2020-10-13] MEDS: hydrOXYzine HCL 25 MG TABLET PO ×2 (08:20→15:46)
[2020-10-13] MEDS: Acetaminophen 325 MG TABLET 650 MG PO (14:42)
--- NOTE | 2020-10-13 16:12 | P.PNPSI_ITS ---
Subjective Subjective Date of Service: 10/13/20 Reason For Visit: SI Interim History: pt reports feeling anxious. mood just tired. denies SI/SIBI. feeling worthless. most focused on her anxiety. agrees to continue with PRNs of clonidine + hydroxyzine + thorazine. also expresses insomnia. agrees to have thorazine 150 mg QHS PRN insomnia available.. benzos and ambien explicitly discussed as not appropriate given context of addiction. no other requests or complaints. per staff, anxious. no SI/HI. poor sleep. attending groups. asking for anti-anxiety meds. thorazine PRN anxiety recently increased. Mental Status Exam Mental Status Exam Narrative: in milieu watching TV, appropriately dressed and groomed. cooperative with interview. no PMA/PMR observed. speech soft, nml rate and amount. thoughts linear and logical. affect constricted and non-labile. mood just tired. no SI/SIBI. no HI/AVH expressed. Diagnostics Vital Signs (24Hr): Vital Signs - 24 hr 10/13/20 06:00 10/13/20 08:15 Temperature 97.7 F Pulse Rate 56 56 Respiratory Rate 16 Blood Pressure 104/57 L 104/57 L Pulse Oximetry 99 Body Mass Index 28.3 Labs Results: 10/10/20 06:19 10/08/20 12:28 Medications Medications Current Medications Generic Name Dose Route Start Last Admin Trade Name Rickieq PRN Reason Stop Dose Admin Acetaminophen 650 mg 10/09/20 14:05 10/13/20 14:42 Acetaminophen 325 Mg Tablet PO 650 mg Q6H PRN Administration Headache/Pain Mild Scale (1-3) Al Hydroxide/Mg Hydroxide 30 ml 10/09/20 14:05 Magnesium Hydrox/Alum Hydrox 30 Ml Oral.Susp PO Q6H PRN Heartburn/Nausea Albuterol Sulfate 2 puff 10/08/20 23:47 10/12/20 17:11 Albuterol Sulfate 90 Mcg 8 Gm Inhaler INHALE 2 puff Q4H PRN Administration Shortness Of Breath Aripiprazole 10 mg 10/09/20 09:00 10/13/20 08:15 Aripiprazole 10 Mg Tablet PO 10 mg DAILY STEPHANIE Administration Buprenorphine 300 mg 10/09/20 01:00 10/09/20 01:10 Buprenorphine Extended Release 300 Mg/1.5 Ml Daniel.Syr SUBCUT Not Given Q30D [facility] Buprenorphine/Naloxone 1 film 10/09/20 09:00 10/13/20 08:15 Buprenorphine/Naloxone 8/2 Mg Film SUBLINGUAL 1 film BID STEPHANIE Administration Chlorpromazine HCl 75 mg 10/12/20 15:43 10/13/20 12:00 Chlorpromazine Hcl 25 Mg Tablet PO 75 mg Q4H PRN Administration Agitation Chlorpromazine HCl 150 mg 10/13/20 12:33 Chlorpromazine Hcl 100 Mg Tablet PO BEDTIME PRN insomnia Clonidine HCl 0.1 mg 10/08/20 23:47 10/13/20 08:20 Clonidine Hcl 0.1 Mg Tablet PO 0.1 mg BID PRN Administration Anxiety Protocol Duloxetine HCl 60 mg 10/09/20 09:00 10/13/20 08:15 Duloxetine Hcl 60 Mg Capsule. PO 60 mg DAILY STEPHANIE Administration Hydroxyzine HCl 25 mg 10/09/20 14:05 10/13/20 15:46 Hydroxyzine Hcl 25 Mg Tablet PO 25 mg Q6H PRN Administration Anxiety Magnesium Hydroxide 30 ml 10/09/20 14:05 Milk Of Magnesia 30 Ml Oral.Susp PO DAILY PRN Constipation Mirtazapine 45 mg 10/09/20 21:00 10/12/20 21:02 Mirtazapine 15 Mg Tablet PO 45 mg BEDTIME STEPHANIE Administration Nicotine Polacrilex 2 mg 10/10/20 10:23 10/13/20 08:20 Nicotine Polacrilex 2 Mg Gum BUCCAL 2 mg Q2H PRN Administration Nicotine Cravings Omeprazole 20 mg 10/09/20 06:30 10/13/20 06:34 Omeprazole 20 Mg Capsule. PO 20 mg DAILY@0630 STEPHANIE Administration Oxybutynin Chloride 10 mg 10/09/20 09:00 10/13/20 08:15 Oxybutynin Chloride Er 5 Mg Tab.Er.24 PO 10 mg DAILY STEPHANIE Administration Prazosin HCl 2 - 4 mg 10/08/20 23:47 Prazosin Hcl 1 Mg Capsule PO BEDTIME PRN nightmares Protocol Propranolol HCl 120 mg 10/09/20 09:00 10/13/20 08:15 Propranolol Hcl La 60 Mg Cap.Sa.24h PO 120 mg DAILY STEPHANIE Administration Protocol Sumatriptan Succinate 50 mg 10/13/20 12:33 Sumatriptan Succinate 50 Mg Tablet PO DAILY PRN Migraine Headache Allergies Allergies Allergy/AdvReac Type Severity Reaction Status Date / Time amoxicillin [AMOXICILLIN] Allergy Intermediate STOMACH Verified 12/16/19 18:31 UPSET, stomach pain and diarrhea trazodone [TRAZODONE] Allergy Intermediate UNKNOWN Verified 12/16/19 18:31 ketorolac [From TORADOL] Allergy Mild RASH Verified 12/16/19 18:31 Sulfa (Sulfonamide Allergy Mild GI UPSET Verified 12/16/19 18:31 Antibiotics) acetaminophen [Vicodin] Allergy Unknown Unknown Verified 12/16/19 18:31 magnesium [MAGNESIUM] Allergy Unknown UNKNOWN Verified 12/16/19 18:31 promethazine [From PHENERGAN] Allergy Unknown UNKNOWN Verified 12/16/19 18:31 quetiapine [Seroquel] Allergy Unknown Unknown Verified 12/16/19 18:31 tramadol [TRAMADOL] Allergy Unknown UNK Verified 12/16/19 18:31 doxycycline Allergy Rash Verified 09/06/20 20:02 vancomycin Allergy Anaphylaxis Verified 09/06/20 20:02 hydrocodone [From VICODIN] AdvReac Mild MIGRAINES Verified 12/16/19 18:31 metoclopramide [From REGLAN] AdvReac Unknown PT STATES Verified 12/16/19 18:31 GETTING SHAKY pregabalin [From LYRICA] AdvReac Unknown HALLUCINATI Verified 12/16/19 18:31 ONS Sulfacet-R Allergy Unknown Stomache Uncoded 02/19/19 00:00 pain and diarrhea Assessment & Plan Assessment & Plan (1) Major depressive disorder, recurrent severe without psychotic features: Status: Acute Code(s): F33.2 - Major depressive disorder, recurrent severe without psychotic features Assessment and Plan: keep safe on locked unit. continue outpt meds. denies SI upon arrival on unit. supportive care during cocaine withdrawal dysphoria. (2) Opioid use disorder: Status: Acute Code(s): F11.99 - Opioid use, unspecified with unspecified opioid-induced disorder Assessment and Plan: continue on bupe. (3) Cocaine abuse: Status: Acute Code(s): F14.10 - Cocaine abuse, uncomplicated Assessment and Plan: abstain. supportive care during detox. Greater than 50% of the session was spent on counseling and/or coordination of care Reason for contiued inpatient stay Substantial Risk for: inability to function and rapid decompensation
--- NOTE | 2020-10-13 17:04 | PM.EVENT ---
Event Note Date of Service: 10/13/20 Event Note: 40 year old women admitted to [facility]. She had complaints of pain and swelling to both of her lower extremities since last week. She denied trauma or injury. No noted fever noted +2-3 bilateral pitting edema from knee to foot no oozing, erythema noted Rec: Bilat venous duplex us to r/o dvt Javon stockings to help alleviate swelling avoid foods high in sodium BNP, BMP
[2020-10-13 20:02] VITALS: BP 87/45; PULSE 54; RESP 16; TEMP 37.1; O2SAT 100
[2020-10-13] MEDS: Mirtazapine 15 MG TABLET 45 MG PO (20:09)
[2020-10-13] MEDS: chlorproMAZINE HCl 100 MG TABLET PO (22:22)
[2020-10-13] MEDS: chlorproMAZINE HCl 25 MG TABLET 50 MG PO (22:22)
[2020-10-14 06:00] VITALS: BP 80/42; PULSE 59; RESP 14; TEMP 36.6; O2SAT 98
[2020-10-14] MEDS: Omeprazole 20 MG CAPSULE.DR PO (06:40)
[2020-10-14] MEDS: chlorproMAZINE HCl 25 MG TABLET 75 MG PO ×4 (06:50→21:10)
[2020-10-14] MEDS: DULoxetine HCl 60 MG CAPSULE.DR PO (08:20)
[2020-10-14] MEDS: ARIPiprazole 10 MG TABLET PO (08:20)
[2020-10-14 08:21] VITALS: BP 80/42; PULSE 59
[2020-10-14] MEDS: Buprenorphine/Naloxone 8/2 mg FILM 1 FILM SUBLINGUAL ×2 (08:21→21:11)
[2020-10-14] MEDS: Nicotine Polacrilex 2 MG GUM BUCCAL ×2 (11:51→18:02)
[2020-10-14] MEDS: hydrOXYzine HCL 25 MG TABLET PO ×2 (11:52→17:59)
--- NOTE | 2020-10-14 14:30 | HO.PSYCHPN ---
Subjective Subjective Date of Service: 10/14/20 Reason For Visit: SI Interim History: pt reports ongoing anxiety. c/o having clonidine withheld due to hypotension. agrees to trial of clonidine patch. reports she is interested in passages program in [facility] making application for her. was on effexor for 11 years, then started cymbalta due to effexor's starting to lose efficacy. doesn't want to change dose of effexor. reports having tried numerous SSRIs, doesn't want to try any of them again, either. per staff, social, napping. no SI/HI. lost home and car. meds making her tired. watching TV. wanna be left alone. hypotensive. got 225 mg thorazine last jackson. slept well overnight. Mental Status Exam Mental Status Exam Narrative: in milieu watching TV, appropriately dressed and groomed. cooperative with interview. no PMA/PMR observed. speech soft, nml rate and amount. thoughts linear and logical. affect constricted and non-labile. no SI/SIBI/HI/AVH expressed. Diagnostics Vital Signs (24Hr): Vital Signs - 24 hr 10/13/20 20:02 10/14/20 06:00 10/14/20 08:21 Temperature 98.7 F 97.8 F Pulse Rate 54 59 59 Respiratory Rate 16 14 Blood Pressure 87/45 L 80/42 L 80/42 L Pulse Oximetry 100 98 Body Mass Index 28.3 Labs Results: 10/10/20 06:19 10/08/20 12:28 Medications Medications Current Medications Generic Name Dose Route Start Last Admin Trade Name Freq PRN Reason Stop Dose Admin Acetaminophen 650 mg 10/09/20 14:05 10/13/20 14:42 Acetaminophen 325 Mg Tablet PO 650 mg Q6H PRN Administration Headache/Pain Mild Scale (1-3) Al Hydroxide/Mg Hydroxide 30 ml 10/09/20 14:05 Magnesium Hydrox/Alum Hydrox 30 Ml Oral.Susp PO Q6H PRN Heartburn/Nausea Albuterol Sulfate 2 puff 10/08/20 23:47 10/12/20 17:11 Albuterol Sulfate 90 Mcg 8 Gm Inhaler INHALE 2 puff Q4H PRN Administration Shortness Of Breath Aripiprazole 10 mg 10/09/20 09:00 10/14/20 08:20 Aripiprazole 10 Mg Tablet PO 10 mg DAILY STEPHANIE Administration Buprenorphine 300 mg 10/09/20 01:00 10/09/20 01:10 Buprenorphine Extended Release 300 Mg/1.5 Ml Daniel.Syr SUBCUT Not Given Q30D STEPHANIE Buprenorphine/Naloxone 1 film 10/09/20 09:00 10/14/20 08:21 Buprenorphine/Naloxone 8/2 Mg Film SUBLINGUAL 1 film BID STEPHANIE Administration Chlorpromazine HCl 75 mg 10/12/20 15:43 10/14/20 11:51 Chlorpromazine Hcl 25 Mg Tablet PO 75 mg Q4H PRN Administration Agitation Chlorpromazine HCl 100 mg 10/13/20 22:15 10/13/20 22:22 Chlorpromazine Hcl 100 Mg Tablet PO 100 mg BEDTIME PRN Administration insomnia Chlorpromazine HCl 50 mg 10/13/20 22:14 10/13/20 22:22 Chlorpromazine Hcl 25 Mg Tablet PO 50 mg BEDTIME PRN Administration Anxiety Clonidine 0.1 mg 10/15/20 09:00 Clonidine 0.1 Mg Patch.Tdwk TRANSDERMA We@0900 STEPHANIE Protocol Clonidine HCl 0.1 mg 10/14/20 14:29 Clonidine Hcl 0.1 Mg Tablet PO Q4H PRN Anxiety Protocol Duloxetine HCl 60 mg 10/09/20 09:00 10/14/20 08:20 Duloxetine Hcl 60 Mg Capsule. PO 60 mg DAILY STEPHANIE Administration Hydroxyzine HCl 25 mg 10/09/20 14:05 10/14/20 11:52 Hydroxyzine Hcl 25 Mg Tablet PO 25 mg Q6H PRN Administration Anxiety Magnesium Hydroxide 30 ml 10/09/20 14:05 Milk Of Magnesia 30 Ml Oral.Susp PO DAILY PRN Constipation Mirtazapine 45 mg 10/09/20 21:00 10/13/20 20:09 Mirtazapine 15 Mg Tablet PO 45 mg BEDTIME STEPHANIE Administration Nicotine Polacrilex 2 mg 10/10/20 10:23 10/14/20 11:51 Nicotine Polacrilex 2 Mg Gum BUCCAL 2 mg Q2H PRN Administration Nicotine Cravings Omeprazole 20 mg 10/09/20 06:30 10/14/20 06:40 Omeprazole 20 Mg Capsule. PO 20 mg DAILY@0630 STEPHANIE Administration Oxybutynin Chloride 10 mg 10/09/20 09:00 10/14/20 08:20 Oxybutynin Chloride Er 5 Mg Tab.Er.24 PO 10 mg DAILY STEPHANIE Administration Prazosin HCl 2 - 4 mg 10/08/20 23:47 Prazosin Hcl 1 Mg Capsule PO BEDTIME PRN nightmares Protocol Propranolol HCl 120 mg 10/09/20 09:00 10/14/20 08:21 Propranolol Hcl La 60 Mg Cap.Sa.24h PO Not Given DAILY [facility] Protocol Sumatriptan Succinate 50 mg 10/13/20 12:33 Sumatriptan Succinate 50 Mg Tablet PO DAILY PRN Migraine Headache Allergies Allergies Allergy/AdvReac Type Severity Reaction Status Date / Time amoxicillin [AMOXICILLIN] Allergy Intermediate STOMACH Verified 12/16/19 18:31 UPSET, stomach pain and diarrhea trazodone [TRAZODONE] Allergy Intermediate UNKNOWN Verified 12/16/19 18:31 ketorolac [From TORADOL] Allergy Mild RASH Verified 12/16/19 18:31 Sulfa (Sulfonamide Allergy Mild GI UPSET Verified 12/16/19 18:31 Antibiotics) acetaminophen [Vicodin] Allergy Unknown Unknown Verified 12/16/19 18:31 magnesium [MAGNESIUM] Allergy Unknown UNKNOWN Verified 12/16/19 18:31 promethazine [From PHENERGAN] Allergy Unknown UNKNOWN Verified 12/16/19 18:31 quetiapine [Seroquel] Allergy Unknown Unknown Verified 12/16/19 18:31 tramadol [TRAMADOL] Allergy Unknown UNK Verified 12/16/19 18:31 doxycycline Allergy Rash Verified 09/06/20 20:02 vancomycin Allergy Anaphylaxis Verified 09/06/20 20:02 hydrocodone [From VICODIN] AdvReac Mild MIGRAINES Verified 12/16/19 18:31 metoclopramide [From REGLAN] AdvReac Unknown PT STATES Verified 12/16/19 18:31 GETTING SHAKY pregabalin [From LYRICA] AdvReac Unknown HALLUCINATI Verified 12/16/19 18:31 ONS Sulfacet-R Allergy Unknown Stomache Uncoded 02/19/19 00:00 pain and diarrhea Assessment & Plan Assessment & Plan (1) Major depressive disorder, recurrent severe without psychotic features: Status: Acute Code(s): F33.2 - Major depressive disorder, recurrent severe without psychotic features Assessment and Plan: keep safe on locked unit. continue outpt meds. denies SI upon arrival on unit. supportive care during cocaine withdrawal dysphoria. starting trial of clonidine patch for anxiety. relatively hypotensive. will decrease propranolol dosing to accommodate clonidine. pt uses cocaine heavily so beta blockers are an unattractive class of anti-hypertensive for her in any case. (2) Opioid use disorder: Status: Acute Code(s): F11.99 - Opioid use, unspecified with unspecified opioid-induced disorder Assessment and Plan: continue on bupe. (3) Cocaine abuse: Status: Acute Code(s): F14.10 - Cocaine abuse, uncomplicated Assessment and Plan: abstain. supportive care during detox. Greater than 50% of the session was spent on counseling and/or coordination of care Reason for contiued inpatient stay Substantial Risk for: harm to self, inability to function and rapid decompensation
[2020-10-14 14:43] VITALS: BP 98/57; PULSE 67
[2020-10-14] MEDS: Mirtazapine 15 MG TABLET 45 MG PO (21:10)
[2020-10-14] MEDS: Acetaminophen 325 MG TABLET 650 MG PO (21:10)
[2020-10-14 21:14] VITALS: BP 90/46; PULSE 61; TEMP 36.7; O2SAT 97
[2020-10-15] VITALS (7 sets, daily range): BP systolic 103–126; BP diastolic 57–76; PULSE 58–82; RESP 16; TEMP 36.4–36.8; O2SAT 96–98
[2020-10-15] MEDS: Acetaminophen 325 MG TABLET 650 MG PO ×2 (06:18→20:11)
[2020-10-15] MEDS: Omeprazole 20 MG CAPSULE.DR PO (06:18)
[2020-10-15] MEDS: chlorproMAZINE HCl 25 MG TABLET 75 MG PO ×2 (06:19→13:46)
[2020-10-15] MEDS: Nicotine Polacrilex 2 MG GUM BUCCAL ×2 (06:20→14:43)
[2020-10-15] MEDS: Propranolol HCL LA 80 MG CAP.SA.24H PO (09:08)
[2020-10-15] MEDS: Buprenorphine/Naloxone 8/2 mg FILM 1 FILM SUBLINGUAL ×2 (09:09→20:12)
[2020-10-15] MEDS: DULoxetine HCl 60 MG CAPSULE.DR PO (09:09)
[2020-10-15] MEDS: ARIPiprazole 10 MG TABLET PO (09:09)
[2020-10-15] MEDS: hydrOXYzine HCL 25 MG TABLET PO ×2 (13:46→17:37)
[2020-10-15] MEDS: cloNIDine HCL 0.1 MG TABLET PO ×3 (14:12→20:10)
--- NOTE | 2020-10-15 15:46 | HO.PSYCHPN ---
Subjective Subjective Date of Service: 10/15/20 Reason For Visit: SI Interim History: pt seen in her room as she is resting in bed, facing away from MD. states she is just tired and doesn't want to speak with MD. per staff, did not attend groups yesterday. refused to [facility] with [facility] sh[facility] her legs). have been holding clonidine due to hypotension. poor sleep overnight. Mental Status Exam Mental Status Exam Narrative: declined interview, lying in bed facing away from MD Diagnostics Vital Signs (24Hr): Vital Signs - 24 hr 10/14/20 21:14 10/15/20 06:00 10/15/20 09:08 Temperature 98.0 F 97.6 F Pulse Rate 61 77 82 Respiratory Rate Blood Pressure 90/46 L 126/71 122/76 Pulse Oximetry 97 98 10/15/20 09:15 10/15/20 14:12 Temperature 98.1 F Pulse Rate 82 58 Respiratory Rate 16 Blood Pressure 122/76 103/57 L Pulse Oximetry 97 Body Mass Index 28.3 Labs Results: 10/10/20 06:19 10/08/20 12:28 Medications Medications Current Medications Generic Name Dose Route Start Last Admin Trade Name Freq PRN Reason Stop Dose Admin Acetaminophen 650 mg 10/09/20 14:05 10/15/20 06:18 Acetaminophen 325 Mg Tablet PO 650 mg Q6H PRN Administration Headache/Pain Mild Scale (1-3) Al Hydroxide/Mg Hydroxide 30 ml 10/09/20 14:05 Magnesium Hydrox/Alum Hydrox 30 Ml Oral.Susp PO Q6H PRN Heartburn/Nausea Albuterol Sulfate 2 puff 10/08/20 23:47 10/12/20 17:11 Albuterol Sulfate 90 Mcg 8 Gm Inhaler INHALE 2 puff Q4H PRN Administration Shortness Of Breath Aripiprazole 10 mg 10/09/20 09:00 10/15/20 09:09 Aripiprazole 10 Mg Tablet PO 10 mg DAILY STEPHANIE Administration Buprenorphine 300 mg 10/09/20 01:00 10/09/20 01:10 Buprenorphine Extended Release 300 Mg/1.5 Ml Daniel.Syr SUBCUT Not Given Q30D STEPHANIE Buprenorphine/Naloxone 1 film 10/09/20 09:00 10/15/20 09:09 Buprenorphine/Naloxone 8/2 Mg Film SUBLINGUAL 1 film BID STPEHANIE Administration Chlorpromazine HCl 75 mg 10/12/20 15:43 10/15/20 13:46 Chlorpromazine Hcl 25 Mg Tablet PO 75 mg Q4H PRN Administration Agitation Chlorpromazine HCl 100 mg 10/13/20 22:15 10/13/20 22:22 Chlorpromazine Hcl 100 Mg Tablet PO 100 mg BEDTIME PRN Administration insomnia Chlorpromazine HCl 50 mg 10/13/20 22:14 10/13/20 22:22 Chlorpromazine Hcl 25 Mg Tablet PO 50 mg BEDTIME PRN Administration Anxiety Clonidine 0.1 mg 10/15/20 09:00 10/15/20 10:22 Clonidine 0.1 Mg Patch.Tdwk TRANSDERMA Not Given We@0900 STEPHANIE Protocol Clonidine HCl 0.1 mg 10/14/20 14:29 10/15/20 14:12 Clonidine Hcl 0.1 Mg Tablet PO 0.1 mg Q4H PRN Administration Anxiety Protocol Duloxetine HCl 60 mg 10/09/20 09:00 10/15/20 09:09 Duloxetine Hcl 60 Mg Capsule. PO 60 mg DAILY STEPHANIE Administration Hydroxyzine HCl 25 mg 10/09/20 14:05 10/15/20 13:46 Hydroxyzine Hcl 25 Mg Tablet PO 25 mg Q6H PRN Administration Anxiety Magnesium Hydroxide 30 ml 10/09/20 14:05 Milk Of Magnesia 30 Ml Oral.Susp PO DAILY PRN Constipation Mirtazapine 45 mg 10/09/20 21:00 10/14/20 21:10 Mirtazapine 15 Mg Tablet PO 45 mg BEDTIME STEHPANIE Administration Nicotine Polacrilex 2 mg 10/10/20 10:23 10/15/20 14:43 Nicotine Polacrilex 2 Mg Gum BUCCAL 2 mg Q2H PRN Administration Nicotine Cravings Omeprazole 20 mg 10/09/20 06:30 10/15/20 06:18 Omeprazole 20 Mg Capsule. PO 20 mg DAILY@0630 STEPHANIE Administration Oxybutynin Chloride 10 mg 10/09/20 09:00 10/15/20 09:09 Oxybutynin Chloride Er 5 Mg Tab.Er.24 PO 10 mg DAILY STEPHANIE Administration Prazosin HCl 2 - 4 mg 10/08/20 23:47 Prazosin Hcl 1 Mg Capsule PO BEDTIME PRN nightmares Protocol Propranolol HCl 80 mg 10/15/20 09:00 10/15/20 09:08 Propranolol Hcl La 80 Mg Cap.Sa.24h PO 80 mg DAILY STEPHANIE Administration Protocol Sumatriptan Succinate 50 mg 10/13/20 12:33 Sumatriptan Succinate 50 Mg Tablet PO DAILY PRN Migraine Headache Allergies Allergies Allergy/AdvReac Type Severity Reaction Status Date / Time amoxicillin [AMOXICILLIN] Allergy Intermediate STOMACH Verified 12/16/19 18:31 UPSET, stomach pain and diarrhea trazodone [TRAZODONE] Allergy Intermediate UNKNOWN Verified 12/16/19 18:31 ketorolac [From TORADOL] Allergy Mild RASH Verified 12/16/19 18:31 Sulfa (Sulfonamide Allergy Mild GI UPSET Verified 12/16/19 18:31 Antibiotics) acetaminophen [Vicodin] Allergy Unknown Unknown Verified 12/16/19 18:31 magnesium [MAGNESIUM] Allergy Unknown UNKNOWN Verified 12/16/19 18:31 promethazine [From PHENERGAN] Allergy Unknown UNKNOWN Verified 12/16/19 18:31 quetiapine [Seroquel] Allergy Unknown Unknown Verified 12/16/19 18:31 tramadol [TRAMADOL] Allergy Unknown UNK Verified 12/16/19 18:31 doxycycline Allergy Rash Verified 09/06/20 20:02 vancomycin Allergy Anaphylaxis Verified 09/06/20 20:02 hydrocodone [From VICODIN] AdvReac Mild MIGRAINES Verified 12/16/19 18:31 metoclopramide [From REGLAN] AdvReac Unknown PT STATES Verified 12/16/19 18:31 GETTING SHAKY pregabalin [From LYRICA] AdvReac Unknown HALLUCINATI Verified 12/16/19 18:31 ONS Sulfacet-R Allergy Unknown Stomache Uncoded 02/19/19 00:00 pain and diarrhea Assessment & Plan Assessment & Plan (1) Major depressive disorder, recurrent severe without psychotic features: Status: Acute Code(s): F33.2 - Major depressive disorder, recurrent severe without psychotic features Assessment and Plan: keep safe on locked unit. continue outpt meds. denies SI upon arrival on unit. supportive care during cocaine withdrawal dysphoria. starting trial of clonidine patch for anxiety. relatively hypotensive. will decrease propranolol dosing to accommodate clonidine. pt uses cocaine heavily so beta blockers are an unattractive class of anti-hypertensive for her in any case. (2) Opioid use disorder: Status: Acute Code(s): F11.99 - Opioid use, unspecified with unspecified opioid-induced disorder Assessment and Plan: continue on bupe. (3) Cocaine abuse: Status: Acute Code(s): F14.10 - Cocaine abuse, uncomplicated Assessment and Plan: abstain. supportive care during detox. Greater than 50% of the session was spent on counseling and/or coordination of care Reason for contiued inpatient stay Substantial Risk for: harm to self, inability to function and rapid decompensation
[2020-10-15] MEDS: chlorproMAZINE HCl 100 MG TABLET PO ×3 (17:37→23:13)
[2020-10-15] MEDS: Mirtazapine 15 MG TABLET 45 MG PO (20:12)
[2020-10-15] MEDS: chlorproMAZINE HCl 25 MG TABLET 50 MG PO (20:18)
[2020-10-15] MEDS: chlorproMAZINE HCl 25 MG TABLET PO (23:13)
[2020-10-16] MEDS: Omeprazole 20 MG CAPSULE.DR PO (06:36)
[2020-10-16 10:10] VITALS: BP 114/75; PULSE 86; RESP 16; TEMP 36.7; O2SAT 100
[2020-10-16 10:16] VITALS: BP 114/75; PULSE 86
[2020-10-16] MEDS: hydrOXYzine HCL 25 MG TABLET PO ×2 (10:16→17:17)
[2020-10-16] MEDS: ARIPiprazole 10 MG TABLET PO (10:16)
[2020-10-16] MEDS: DULoxetine HCl 60 MG CAPSULE.DR PO (10:16)
[2020-10-16 10:17] VITALS: BP 114/75; PULSE 86
[2020-10-16] MEDS: cloNIDine 0.1 MG PATCH.TDWK TRANSDERMA (10:17)
[2020-10-16] MEDS: Buprenorphine/Naloxone 8/2 mg FILM 1 FILM SUBLINGUAL ×2 (10:17→21:09)
[2020-10-16] MEDS: Acetaminophen 325 MG TABLET 650 MG PO (11:18)
--- NOTE | 2020-10-16 12:53 | HO.PSYCHPN ---
Subjective Subjective Date of Service: 10/16/20 Reason For Visit: SI Interim History: pt reports she is not sleeping well and her anxiety is not in control. discussion held re large doses of thorazine pt is receiving and how that would put most people to sleep. reports bipolar disorder Dx as well as PTSD. possibility PTSD accounts for bipolar Sx discussed. in any event pt willing to give mood stabilizer a try. tegretol chosen as potentially helpful for neuropathic pain, mood sleep, anxiety. per staff, irritable, using PRNs. up late, c/o poor sleep. c/o pain. lots of thorazine at HS, PRNs during the day. awaiting a bed at [facility]. Mental Status Exam Mental Status Exam Narrative: in milieu watching TV, appropriately dressed and groomed. cooperative with interview. no PMA/PMR observed. speech soft, nml rate and amount. thoughts linear and logical. affect constricted and non-labile. no SI/SIBI/HI/AVH expressed. Diagnostics Vital Signs (24Hr): Vital Signs - 24 hr 10/15/20 14:12 10/15/20 18:31 10/15/20 20:00 Temperature 98.2 F Pulse Rate 58 60 71 Respiratory Rate Blood Pressure 103/57 L 113/62 110/60 Pulse Oximetry 96 10/15/20 20:10 10/16/20 10:10 10/16/20 10:16 Temperature 98.0 F Pulse Rate 71 86 86 Respiratory Rate 16 Blood Pressure 110/60 114/75 114/75 Pulse Oximetry 100 10/16/20 10:17 Temperature Pulse Rate 86 Respiratory Rate Blood Pressure 114/75 Pulse Oximetry Body Mass Index 28.3 Labs Results: 10/10/20 06:19 10/08/20 12:28 Medications Medications Current Medications Generic Name Dose Route Start Last Admin Trade Name Freq PRN Reason Stop Dose Admin Acetaminophen 650 mg 10/09/20 14:05 10/16/20 11:18 Acetaminophen 325 Mg Tablet PO 650 mg Q6H PRN Administration Headache/Pain Mild Scale (1-3) Al Hydroxide/Mg Hydroxide 30 ml 10/09/20 14:05 Magnesium Hydrox/Alum Hydrox 30 Ml Oral.Susp PO Q6H PRN Heartburn/Nausea Albuterol Sulfate 2 puff 10/08/20 23:47 10/12/20 17:11 Albuterol Sulfate 90 Mcg 8 Gm Inhaler INHALE 2 puff Q4H PRN Administration Shortness Of Breath Aripiprazole 10 mg 10/09/20 09:00 10/16/20 10:16 Aripiprazole 10 Mg Tablet PO 10 mg DAILY STEPHANIE Administration Buprenorphine 300 mg 10/09/20 01:00 10/09/20 01:10 Buprenorphine Extended Release 300 Mg/1.5 Ml Daniel.Syr SUBCUT Not Given Q30D STEPHANIE Buprenorphine/Naloxone 1 film 10/09/20 09:00 10/16/20 10:17 Buprenorphine/Naloxone 8/2 Mg Film SUBLINGUAL 1 film BID STEPHANIE Administration Chlorpromazine HCl 100 mg 10/13/20 22:15 10/15/20 23:13 Chlorpromazine Hcl 100 Mg Tablet PO 100 mg BEDTIME PRN Administration insomnia Chlorpromazine HCl 50 mg 10/13/20 22:14 10/15/20 20:18 Chlorpromazine Hcl 25 Mg Tablet PO 50 mg BEDTIME PRN Administration Anxiety Chlorpromazine HCl 100 mg 10/15/20 16:21 Chlorpromazine Hcl 100 Mg Tablet PO Q4H PRN Agitation Clonidine 0.1 mg 10/16/20 09:00 10/16/20 10:17 Clonidine 0.1 Mg Patch.Tdwk TRANSDERMA 0.1 mg Th@0900 STEPHANIE Administration Protocol Clonidine HCl 0.1 mg 10/14/20 14:29 10/15/20 20:10 Clonidine Hcl 0.1 Mg Tablet PO 0.1 mg Q4H PRN Administration Anxiety Protocol Duloxetine HCl 60 mg 10/09/20 09:00 10/16/20 10:16 Duloxetine Hcl 60 Mg Capsule.Dr PO 60 mg DAILY STEPHANIE Administration Hydroxyzine HCl 25 mg 10/09/20 14:05 10/16/20 10:16 Hydroxyzine Hcl 25 Mg Tablet PO 25 mg Q6H PRN Administration Anxiety Magnesium Hydroxide 30 ml 10/09/20 14:05 Milk Of Magnesia 30 Ml Oral.Susp PO DAILY PRN Constipation Mirtazapine 45 mg 10/09/20 21:00 10/15/20 20:12 Mirtazapine 15 Mg Tablet PO 45 mg BEDTIME STEPHANIE Administration Nicotine Polacrilex 2 mg 10/10/20 10:23 10/15/20 14:43 Nicotine Polacrilex 2 Mg Gum BUCCAL 2 mg Q2H PRN Administration Nicotine Cravings Omeprazole 20 mg 10/09/20 06:30 10/16/20 06:36 Omeprazole 20 Mg Capsule. PO 20 mg DAILY@0630 STEPHANIE Administration Oxybutynin Chloride 10 mg 10/09/20 09:00 10/16/20 10:15 Oxybutynin Chloride Er 5 Mg Tab.Er.24 PO 10 mg DAILY STEPHANIE Administration Prazosin HCl 2 - 4 mg 10/08/20 23:47 Prazosin Hcl 1 Mg Capsule PO BEDTIME PRN nightmares Protocol Sumatriptan Succinate 50 mg 10/13/20 12:33 Sumatriptan Succinate 50 Mg Tablet PO DAILY PRN Migraine Headache Allergies Allergies Allergy/AdvReac Type Severity Reaction Status Date / Time amoxicillin [AMOXICILLIN] Allergy Intermediate STOMACH Verified 12/16/19 18:31 UPSET, stomach pain and diarrhea trazodone [TRAZODONE] Allergy Intermediate UNKNOWN Verified 12/16/19 18:31 ketorolac [From TORADOL] Allergy Mild RASH Verified 12/16/19 18:31 Sulfa (Sulfonamide Allergy Mild GI UPSET Verified 12/16/19 18:31 Antibiotics) acetaminophen [Vicodin] Allergy Unknown Unknown Verified 12/16/19 18:31 magnesium [MAGNESIUM] Allergy Unknown UNKNOWN Verified 12/16/19 18:31 promethazine [From PHENERGAN] Allergy Unknown UNKNOWN Verified 12/16/19 18:31 quetiapine [Seroquel] Allergy Unknown Unknown Verified 12/16/19 18:31 tramadol [TRAMADOL] Allergy Unknown UNK Verified 12/16/19 18:31 doxycycline Allergy Rash Verified 09/06/20 20:02 vancomycin Allergy Anaphylaxis Verified 09/06/20 20:02 hydrocodone [From VICODIN] AdvReac Mild MIGRAINES Verified 12/16/19 18:31 metoclopramide [From REGLAN] AdvReac Unknown PT STATES Verified 12/16/19 18:31 GETTING SHAKY pregabalin [From LYRICA] AdvReac Unknown HALLUCINATI Verified 12/16/19 18:31 ONS Sulfacet-R Allergy Unknown Stomache Uncoded 02/19/19 00:00 pain and diarrhea Assessment & Plan Assessment & Plan (1) Major depressive disorder, recurrent severe without psychotic features: Status: Acute Code(s): F33.2 - Major depressive disorder, recurrent severe without psychotic features Assessment and Plan: keep safe on locked unit. continue outpt meds. denied SI upon arrival on unit. supportive care during cocaine withdrawal dysphoria. started trial of clonidine patch 10/16 for anxiety. tapered propranolol to accommodate clonidine. pt uses cocaine heavily so beta blockers are an unattractive class of anti-hypertensive for her in any case. starting tegretol in case pt has bipolar disorder, as supported by poor sleep and lack of responsiveness to thorazine (PTSD Sx may also explain this insomnia and relative lack of response to thorazine). (2) Opioid use disorder: Status: Acute Code(s): F11.99 - Opioid use, unspecified with unspecified opioid-induced disorder Assessment and Plan: continue on bupe. (3) Cocaine abuse: Status: Acute Code(s): F14.10 - Cocaine abuse, uncomplicated Assessment and Plan: abstain. supportive care during detox. Assessment and Plan: awaiting a bed [facility] Greater than 50% of the session was spent on counseling and/or coordination of care Reason for contiued inpatient stay Substantial Risk for: harm to self, inability to function and rapid decompensation
[2020-10-16 13:18] VITALS: BP 105/60; PULSE 65
[2020-10-16] MEDS: cloNIDine HCL 0.1 MG TABLET PO (13:18)
[2020-10-16] MEDS: carBAMazepine ER 100 MG TAB.ER.12H PO ×2 (13:59→21:10)
[2020-10-16] MEDS: chlorproMAZINE HCl 100 MG TABLET PO ×2 (14:40→21:09)
[2020-10-16] MEDS: Nicotine Polacrilex 2 MG GUM BUCCAL (17:13)
[2020-10-16 18:00] VITALS: BP 103/66; PULSE 61; RESP 16; TEMP 36.6; O2SAT 97
[2020-10-16] MEDS: chlorproMAZINE HCl 25 MG TABLET 50 MG PO (21:09)
[2020-10-16] MEDS: Mirtazapine 15 MG TABLET 45 MG PO (21:10)
[2020-10-17 00:43] VITALS: BP 116/67; PULSE 63
[2020-10-17] MEDS: chlorproMAZINE HCl 100 MG TABLET PO ×5 (00:43→20:16)
[2020-10-17] MEDS: hydrOXYzine HCL 25 MG TABLET PO ×3 (00:43→18:30)
[2020-10-17] MEDS: cloNIDine HCL 0.1 MG TABLET PO (00:43)
[2020-10-17 06:00] VITALS: BP 95/51; PULSE 56; RESP 20; TEMP 36.3; O2SAT 98
[2020-10-17] MEDS: Buprenorphine/Naloxone 8/2 mg FILM 1 FILM SUBLINGUAL ×2 (08:46→20:16)
[2020-10-17] MEDS: Omeprazole 20 MG CAPSULE.DR PO (08:46)
[2020-10-17] MEDS: carBAMazepine ER 100 MG TAB.ER.12H PO ×2 (08:47→20:15)
[2020-10-17] MEDS: DULoxetine HCl 60 MG CAPSULE.DR PO (08:47)
[2020-10-17] MEDS: ARIPiprazole 10 MG TABLET PO (08:47)
[2020-10-17] MEDS: Nicotine Polacrilex 2 MG GUM BUCCAL ×4 (12:10→20:36)
--- NOTE | 2020-10-17 14:27 | HO.PSYCHPN ---
Subjective Subjective Date of Service: 10/17/20 Reason For Visit: SI Interim History: pt seen in her room as she is resting in bed, facing away from MD.? states she is just tired and doesn't want to speak with MD.? reports she is tired every day until noon. per staff, no change in presentation. using thorazine PRNs. c/o severe anxiety but observed to be spending large amounts of time lounging in front of TV appearing quite relaxed. Mental Status Exam Mental Status Exam Narrative: declined interview, lying in bed facing away from MD. reported she is having horrible anxiety. Diagnostics Vital Signs (24Hr): Vital Signs - 24 hr 10/16/20 18:00 10/17/20 00:43 10/17/20 06:00 Temperature 97.9 F 97.3 F Pulse Rate 61 63 56 Respiratory Rate 16 20 Blood Pressure 103/66 116/67 95/51 L Pulse Oximetry 97 98 Body Mass Index 28.3 Labs Results: 10/10/20 06:19 10/08/20 12:28 Medications Medications Current Medications Generic Name Dose Route Start Last Admin Trade Name Freq PRN Reason Stop Dose Admin Acetaminophen 650 mg 10/09/20 14:05 10/16/20 11:18 Acetaminophen 325 Mg Tablet PO 650 mg Q6H PRN Administration Headache/Pain Mild Scale (1-3) Al Hydroxide/Mg Hydroxide 30 ml 10/09/20 14:05 Magnesium Hydrox/Alum Hydrox 30 Ml Oral.Susp PO Q6H PRN Heartburn/Nausea Albuterol Sulfate 2 puff 10/08/20 23:47 10/12/20 17:11 Albuterol Sulfate 90 Mcg 8 Gm Inhaler INHALE 2 puff Q4H PRN Administration Shortness Of Breath Aripiprazole 10 mg 10/09/20 09:00 10/17/20 08:47 Aripiprazole 10 Mg Tablet PO 10 mg DAILY STEPHANIE Administration Buprenorphine 300 mg 10/09/20 01:00 10/09/20 01:10 Buprenorphine Extended Release 300 Mg/1.5 Ml Daniel.Syr SUBCUT Not Given Q30D STEPHANIE Buprenorphine/Naloxone 1 film 10/09/20 09:00 10/17/20 08:46 Buprenorphine/Naloxone 8/2 Mg Film SUBLINGUAL 1 film BID STEPHANIE Administration Carbamazepine 100 mg 10/16/20 13:30 10/17/20 08:47 Carbamazepine Er 100 Mg Tab.Er.12h PO 100 mg BID STEPHANIE Administration Chlorpromazine HCl 100 mg 10/13/20 22:15 10/16/20 21:09 Chlorpromazine Hcl 100 Mg Tablet PO 100 mg BEDTIME PRN Administration insomnia Chlorpromazine HCl 50 mg 10/13/20 22:14 10/16/20 21:09 Chlorpromazine Hcl 25 Mg Tablet PO 50 mg BEDTIME PRN Administration Anxiety Chlorpromazine HCl 100 mg 10/15/20 16:21 10/17/20 12:10 Chlorpromazine Hcl 100 Mg Tablet PO 100 mg Q4H PRN Administration Agitation Clonidine 0.1 mg 10/16/20 09:00 10/16/20 10:17 Clonidine 0.1 Mg Patch.Tdwk TRANSDERMA 0.1 mg Th@0900 STEPHANIE Administration Protocol Clonidine HCl 0.1 mg 10/14/20 14:29 10/17/20 00:43 Clonidine Hcl 0.1 Mg Tablet PO 0.1 mg Q4H PRN Administration Anxiety Protocol Duloxetine HCl 60 mg 10/09/20 09:00 10/17/20 08:47 Duloxetine Hcl 60 Mg Capsule. PO 60 mg DAILY STEPHANIE Administration Hydroxyzine HCl 25 mg 10/09/20 14:05 10/17/20 12:11 Hydroxyzine Hcl 25 Mg Tablet PO 25 mg Q6H PRN Administration Anxiety Magnesium Hydroxide 30 ml 10/09/20 14:05 Milk Of Magnesia 30 Ml Oral.Susp PO DAILY PRN Constipation Mirtazapine 45 mg 10/09/20 21:00 10/16/20 21:10 Mirtazapine 15 Mg Tablet PO 45 mg BEDTIME STEPHANIE Administration Nicotine Polacrilex 2 mg 10/10/20 10:23 10/17/20 12:10 Nicotine Polacrilex 2 Mg Gum BUCCAL 2 mg Q2H PRN Administration Nicotine Cravings Omeprazole 20 mg 10/09/20 06:30 10/17/20 08:46 Omeprazole 20 Mg Capsule. PO 20 mg DAILY@0630 STEPHANIE Administration Oxybutynin Chloride 10 mg 10/09/20 09:00 10/17/20 08:47 Oxybutynin Chloride Er 5 Mg Tab.Er.24 PO 10 mg DAILY STEPHANIE Administration Prazosin HCl 2 - 4 mg 10/08/20 23:47 Prazosin Hcl 1 Mg Capsule PO BEDTIME PRN nightmares Protocol Sumatriptan Succinate 50 mg 10/13/20 12:33 Sumatriptan Succinate 50 Mg Tablet PO DAILY PRN Migraine Headache Allergies Allergies Allergy/AdvReac Type Severity Reaction Status Date / Time amoxicillin [AMOXICILLIN] Allergy Intermediate STOMACH Verified 12/16/19 18:31 UPSET, stomach pain and diarrhea trazodone [TRAZODONE] Allergy Intermediate UNKNOWN Verified 12/16/19 18:31 ketorolac [From TORADOL] Allergy Mild RASH Verified 12/16/19 18:31 Sulfa (Sulfonamide Allergy Mild GI UPSET Verified 12/16/19 18:31 Antibiotics) acetaminophen [Vicodin] Allergy Unknown Unknown Verified 12/16/19 18:31 magnesium [MAGNESIUM] Allergy Unknown UNKNOWN Verified 12/16/19 18:31 promethazine [From PHENERGAN] Allergy Unknown UNKNOWN Verified 12/16/19 18:31 quetiapine [Seroquel] Allergy Unknown Unknown Verified 12/16/19 18:31 tramadol [TRAMADOL] Allergy Unknown UNK Verified 12/16/19 18:31 doxycycline Allergy Rash Verified 09/06/20 20:02 vancomycin Allergy Anaphylaxis Verified 09/06/20 20:02 hydrocodone [From VICODIN] AdvReac Mild MIGRAINES Verified 12/16/19 18:31 metoclopramide [From REGLAN] AdvReac Unknown PT STATES Verified 12/16/19 18:31 GETTING SHAKY pregabalin [From LYRICA] AdvReac Unknown HALLUCINATI Verified 12/16/19 18:31 ONS Sulfacet-R Allergy Unknown Stomache Uncoded 02/19/19 00:00 pain and diarrhea Assessment & Plan Assessment & Plan (1) Major depressive disorder, recurrent severe without psychotic features: Status: Acute Code(s): F33.2 - Major depressive disorder, recurrent severe without psychotic features Assessment and Plan: keep safe on locked unit. continue outpt meds. denied SI upon arrival on unit. supportive care during cocaine withdrawal dysphoria. started trial of clonidine patch 10/16 for anxiety. tapered propranolol to accommodate clonidine. pt uses cocaine heavily so beta blockers are an unattractive class of anti-hypertensive for her in any case. started tegretol 10/16 in case pt has bipolar disorder, as supported by poor sleep and lack of responsiveness to thorazine (PTSD Sx may also explain this insomnia and relative lack of response to thorazine). (2) Opioid use disorder: Status: Acute Code(s): F11.99 - Opioid use, unspecified with unspecified opioid-induced disorder Assessment and Plan: continue on bupe. (3) Cocaine abuse: Status: Acute Code(s): F14.10 - Cocaine abuse, uncomplicated Assessment and Plan: abstain. supportive care during detox. Assessment and Plan: awaiting a bed at [facility] Greater than 50% of the session was spent on counseling and/or coordination of care Reason for contiued inpatient stay Substantial Risk for: rapid decompensation
[2020-10-17 18:00] VITALS: BP 90/51; PULSE 60; RESP 16; TEMP 36.9; O2SAT 96
[2020-10-17] MEDS: Mirtazapine 15 MG TABLET 45 MG PO (20:15)
[2020-10-17] MEDS: chlorproMAZINE HCl 25 MG TABLET 50 MG PO (20:16)
[2020-10-18] MEDS: Omeprazole 20 MG CAPSULE.DR PO (06:45)
[2020-10-18] MEDS: chlorproMAZINE HCl 100 MG TABLET PO ×4 (06:47→20:29)
[2020-10-18 09:00] VITALS: BP 121/59; PULSE 78; RESP 14; TEMP 36.9; O2SAT 97
[2020-10-18] MEDS: ARIPiprazole 10 MG TABLET PO (09:00)
[2020-10-18] MEDS: carBAMazepine ER 100 MG TAB.ER.12H PO ×2 (09:00→20:29)
[2020-10-18] MEDS: DULoxetine HCl 60 MG CAPSULE.DR PO (09:01)
[2020-10-18] MEDS: Buprenorphine/Naloxone 8/2 mg FILM 1 FILM SUBLINGUAL ×2 (09:02→20:29)
[2020-10-18] MEDS: Albuterol Sulfate 90 MCG 8 GM INHALER 2 PUFF INHALE (09:03)
[2020-10-18] MEDS: hydrOXYzine HCL 25 MG TABLET PO ×2 (11:26→18:45)
[2020-10-18] MEDS: Acetaminophen 325 MG TABLET 650 MG PO (11:30)
[2020-10-18] MEDS: Nicotine Polacrilex 2 MG GUM BUCCAL ×4 (12:22→23:01)
[2020-10-18 18:15] VITALS: BP 105/58; PULSE 66; RESP 14; TEMP 36.7; O2SAT 98
[2020-10-18] MEDS: chlorproMAZINE HCl 25 MG TABLET 50 MG PO (20:28)
[2020-10-18] MEDS: Mirtazapine 15 MG TABLET 45 MG PO (20:29)
[2020-10-18 21:27] VITALS: BP 111/56; PULSE 78; RESP 18; TEMP 37.2; O2SAT 96
[2020-10-18 22:59] VITALS: BP 138/75; PULSE 86
[2020-10-18] MEDS: Prazosin HCL 1 MG CAPSULE PO (22:59)
[2020-10-18 23:00] VITALS: BP 138/75; PULSE 86
[2020-10-18] MEDS: cloNIDine HCL 0.1 MG TABLET PO (23:00)
--- NOTE | 2020-10-18 23:30 | HO.PSYCHPN ---
Subjective Subjective Date of Service: 10/19/20 Reason For Visit: SI Healthcare Proxy: No Guardianship: No Medication Compliance: Yes Review of Systems S/P od HX FASCIOTOMY Mental Status Exam Mental Status Exam Patient Appearance: Well Grooomed Patient Orientation: Person, Place, Time and Situation Level of Consciousness: Awake Patient Behavior: Anxious Mood Description: Anxious, Sad and Apprehensive Affect Description: Withdrawn, Depressed and Anxious Patient Cognition Impaired: No Ability to Follow Directions: Good Speech Pattern: Clear Memory Description: Intact Hallucinations: None Delusions: Not Present Thought Content: positive for Obsessional Thoughts, positive for Preoccupation and positive for Suicidal Ideation (DENIES IN THIS SETTING) Depressive Symptoms: Increased Anxiety, Insomnia, Hopelessness and Increased Fatigue Judgement: Fair Diagnostics Vital Signs (24Hr): Vital Signs - 24 hr 10/18/20 09:00 10/18/20 18:15 10/18/20 21:27 Temperature 98.5 F 98.0 F 99.0 F Pulse Rate 78 66 78 Respiratory Rate 14 14 18 Blood Pressure 121/59 L 105/58 L 111/56 L Pulse Oximetry 97 98 96 10/18/20 22:59 10/18/20 23:00 Temperature Pulse Rate 86 86 Respiratory Rate Blood Pressure 138/75 138/75 Pulse Oximetry Body Mass Index 28.3 Labs Results: 10/10/20 06:19 10/08/20 12:28 Medications Medications Current Medications Generic Name Dose Route Start Last Admin Trade Name Freq PRN Reason Stop Dose Admin Acetaminophen 650 mg 10/09/20 14:05 10/18/20 11:30 Acetaminophen 325 Mg Tablet PO 650 mg Q6H PRN Administration Headache/Pain Mild Scale (1-3) Al Hydroxide/Mg Hydroxide 30 ml 10/09/20 14:05 Magnesium Hydrox/Alum Hydrox 30 Ml Oral.Susp PO Q6H PRN Heartburn/Nausea Albuterol Sulfate 2 puff 10/08/20 23:47 10/18/20 09:03 Albuterol Sulfate 90 Mcg 8 Gm Inhaler INHALE 2 puff Q4H PRN Administration Shortness Of Breath Aripiprazole 10 mg 10/09/20 09:00 10/18/20 09:00 Aripiprazole 10 Mg Tablet PO 10 mg DAILY STEPHANIE Administration Buprenorphine 300 mg 10/09/20 01:00 10/09/20 01:10 Buprenorphine Extended Release 300 Mg/1.5 Ml Daniel.Syr SUBCUT Not Given Q30D STPEHANIE Buprenorphine/Naloxone 1 film 10/09/20 09:00 10/18/20 20:29 Buprenorphine/Naloxone 8/2 Mg Film SUBLINGUAL 1 film BID STEPHANIE Administration Carbamazepine 100 mg 10/16/20 13:30 10/18/20 20:29 Carbamazepine Er 100 Mg Tab.Er.12h PO 100 mg BID STEPHANIE Administration Chlorpromazine HCl 100 mg 10/13/20 22:15 10/18/20 20:29 Chlorpromazine Hcl 100 Mg Tablet PO 100 mg BEDTIME PRN Administration insomnia Chlorpromazine HCl 50 mg 10/13/20 22:14 10/18/20 20:28 Chlorpromazine Hcl 25 Mg Tablet PO 50 mg BEDTIME PRN Administration Anxiety Chlorpromazine HCl 100 mg 10/15/20 16:21 10/18/20 16:25 Chlorpromazine Hcl 100 Mg Tablet PO 100 mg Q4H PRN Administration Agitation Clonidine 0.1 mg 10/16/20 09:00 10/16/20 10:17 Clonidine 0.1 Mg Patch.Tdwk TRANSDERMA 0.1 mg Th@0900 STEPHANIE Administration Protocol Clonidine HCl 0.1 mg 10/14/20 14:29 10/18/20 23:00 Clonidine Hcl 0.1 Mg Tablet PO 0.1 mg Q4H PRN Administration Anxiety Protocol Duloxetine HCl 60 mg 10/09/20 09:00 10/18/20 09:01 Duloxetine Hcl 60 Mg Capsule. PO 60 mg DAILY STEPHANIE Administration Hydroxyzine HCl 25 mg 10/09/20 14:05 10/18/20 18:45 Hydroxyzine Hcl 25 Mg Tablet PO 25 mg Q6H PRN Administration Anxiety Magnesium Hydroxide 30 ml 10/09/20 14:05 Milk Of Magnesia 30 Ml Oral.Susp PO DAILY PRN Constipation Mirtazapine 45 mg 10/09/20 21:00 10/18/20 20:29 Mirtazapine 15 Mg Tablet PO 45 mg BEDTIME STEPHANIE Administration Nicotine Polacrilex 2 mg 10/10/20 10:23 10/18/20 23:01 Nicotine Polacrilex 2 Mg Gum BUCCAL 2 mg Q2H PRN Administration Nicotine Cravings Omeprazole 20 mg 10/09/20 06:30 10/18/20 06:45 Omeprazole 20 Mg Capsule.Dr PO 20 mg DAILY@0630 STEPHANIE Administration Oxybutynin Chloride 10 mg 10/09/20 09:00 10/18/20 09:00 Oxybutynin Chloride Er 5 Mg Tab.Er.24 PO 10 mg DAILY STEPHANIE Administration Prazosin HCl 2 - 4 mg 10/08/20 23:47 10/18/20 22:59 Prazosin Hcl 1 Mg Capsule PO 2 mg BEDTIME PRN Administration nightmares Protocol Sumatriptan Succinate 50 mg 10/13/20 12:33 Sumatriptan Succinate 50 Mg Tablet PO DAILY PRN Migraine Headache Allergies Allergies Allergy/AdvReac Type Severity Reaction Status Date / Time amoxicillin [AMOXICILLIN] Allergy Intermediate STOMACH Verified 12/16/19 18:31 UPSET, stomach pain and diarrhea trazodone [TRAZODONE] Allergy Intermediate UNKNOWN Verified 12/16/19 18:31 ketorolac [From TORADOL] Allergy Mild RASH Verified 12/16/19 18:31 Sulfa (Sulfonamide Allergy Mild GI UPSET Verified 12/16/19 18:31 Antibiotics) acetaminophen [Vicodin] Allergy Unknown Unknown Verified 12/16/19 18:31 magnesium [MAGNESIUM] Allergy Unknown UNKNOWN Verified 12/16/19 18:31 promethazine [From PHENERGAN] Allergy Unknown UNKNOWN Verified 12/16/19 18:31 quetiapine [Seroquel] Allergy Unknown Unknown Verified 12/16/19 18:31 tramadol [TRAMADOL] Allergy Unknown UNK Verified 12/16/19 18:31 doxycycline Allergy Rash Verified 09/06/20 20:02 vancomycin Allergy Anaphylaxis Verified 09/06/20 20:02 hydrocodone [From VICODIN] AdvReac Mild MIGRAINES Verified 12/16/19 18:31 metoclopramide [From REGLAN] AdvReac Unknown PT STATES Verified 12/16/19 18:31 GETTING SHAKY pregabalin [From LYRICA] AdvReac Unknown HALLUCINATI Verified 12/16/19 18:31 ONS Sulfacet-R Allergy Unknown Stomache Uncoded 02/19/19 00:00 pain and diarrhea Assessment & Plan Assessment & Plan (1) Major depressive disorder, recurrent severe without psychotic features: Status: Acute Code(s): F33.2 - Major depressive disorder, recurrent severe without psychotic features (2) Opioid use disorder: Status: Acute Code(s): F11.99 - Opioid use, unspecified with unspecified opioid-induced disorder Assessment and Plan: continue on bupe. (3) Cocaine abuse: Status: Acute Code(s): F14.10 - Cocaine abuse, uncomplicated Assessment and Plan: abstain. supportive care during detox. Assessment and Plan: PERIACTIN FOR NIGHTMARESINSOMNIA LIDOCAINE CREAM FOR PAIN BY FASCIOTOMY REFERRAL TO [facility] CONSIDER SEROQUEL ABILIFY FOR DEPRESSION ON SUBOXONE REFERRAL TO [facility]. Greater than 50% of the session was spent on counseling and/or coordination of care Reason for contiued inpatient stay Substantial Risk for: harm to self and rapid decompensation
[2020-10-19] VITALS (7 sets, daily range): BP systolic 100–128; BP diastolic 60–78; PULSE 80–119; RESP 14; TEMP 36.5–37.1; O2SAT 97
[2020-10-19] MEDS: Omeprazole 20 MG CAPSULE.DR PO ×2 (05:31→19:29)
[2020-10-19] MEDS: Buprenorphine/Naloxone 8/2 mg FILM 1 FILM SUBLINGUAL ×2 (08:24→20:03)
[2020-10-19] MEDS: DULoxetine HCl 60 MG CAPSULE.DR PO (08:24)
[2020-10-19] MEDS: Nicotine Polacrilex 2 MG GUM BUCCAL ×5 (08:25→20:02)
[2020-10-19] MEDS: chlorproMAZINE HCl 100 MG TABLET PO ×5 (08:25→22:37)
[2020-10-19] MEDS: ARIPiprazole 10 MG TABLET PO (08:25)
[2020-10-19] MEDS: carBAMazepine ER 100 MG TAB.ER.12H PO (08:25)
[2020-10-19] MEDS: cloNIDine HCL 0.1 MG TABLET PO ×4 (08:25→22:37)
[2020-10-19] MEDS: hydrOXYzine HCL 25 MG TABLET PO ×3 (11:39→22:37)
[2020-10-19] MEDS: Acetaminophen 325 MG TABLET 650 MG PO (16:45)
[2020-10-19] MEDS: Lidocaine 5 % Ointment 35 GM 1 APPL TOPICAL (16:45)
[2020-10-19] MEDS: Ibuprofen 400 MG TABLET PO (19:28)
[2020-10-19] MEDS: Mirtazapine 15 MG TABLET 45 MG PO (20:02)
[2020-10-19] MEDS: carBAMazepine ER 100 MG TAB.ER.12H 200 MG PO (20:02)
[2020-10-19] MEDS: chlorproMAZINE HCl 25 MG TABLET 50 MG PO (20:02)
[2020-10-19] MEDS: Prazosin HCL 1 MG CAPSULE PO (20:03)
[2020-10-19] MEDS: Cyproheptadine HCl 4 MG TABLET PO (20:03)
[2020-10-19] MEDS: Milk of Magnesia 30 ML ORAL.SUSP PO (20:03)
--- NOTE | 2020-10-19 23:46 | HO.PSYCHPN ---
Subjective Subjective Date of Service: 10/19/20 Reason For Visit: SI Subjective Notes: Conditional Voluntary Interim History: Patient depressed withdrawn anxious denies active self-harm depressed hopeless helpless irritable Started lidocaine cream for area fasciotomy Medication Compliance: Yes Mental Status Exam Mental Status Exam Patient Appearance: Well Grooomed Patient Orientation: Person, Place, Time and Situation Level of Consciousness: Awake Patient Behavior: Anxious Mood Description: Anxious, Sad and Apprehensive Affect Description: Withdrawn, Depressed and Anxious Patient Cognition Impaired: No Ability to Follow Directions: Good Speech Pattern: Clear Memory Description: Intact Hallucinations: None Delusions: Not Present Thought Content: positive for Obsessional Thoughts, positive for Preoccupation and positive for Suicidal Ideation (DENIES IN THIS SETTING) Depressive Symptoms: Increased Anxiety, Insomnia, Hopelessness and Increased Fatigue Judgement: Fair Diagnostics Vital Signs (24Hr): Vital Signs - 24 hr 10/19/20 08:05 10/19/20 08:25 10/19/20 13:39 Temperature 97.7 F Pulse Rate 100 100 81 Respiratory Rate 14 Blood Pressure 128/78 128/78 100/67 Pulse Oximetry 97 10/19/20 17:54 10/19/20 19:54 10/19/20 20:03 Temperature 98.7 F Pulse Rate 89 80 80 Respiratory Rate Blood Pressure 105/60 113/69 113/69 Pulse Oximetry 97 10/19/20 22:37 Temperature Pulse Rate 119 H Respiratory Rate Blood Pressure 122/68 Pulse Oximetry Body Mass Index 28.3 Labs Results: 10/10/20 06:19 10/08/20 12:28 Medications Medications Current Medications Generic Name Dose Route Start Last Admin Trade Name Freq PRN Reason Stop Dose Admin Acetaminophen 650 mg 10/09/20 14:05 10/19/20 16:45 Acetaminophen 325 Mg Tablet PO 650 mg Q6H PRN Administration Headache/Pain Mild Scale (1-3) Al Hydroxide/Mg Hydroxide 30 ml 10/09/20 14:05 Magnesium Hydrox/Alum Hydrox 30 Ml Oral.Susp PO Q6H PRN Heartburn/Nausea Albuterol Sulfate 2 puff 10/08/20 23:47 10/18/20 09:03 Albuterol Sulfate 90 Mcg 8 Gm Inhaler INHALE 2 puff Q4H PRN Administration Shortness Of Breath Aripiprazole 10 mg 10/09/20 09:00 10/19/20 08:25 Aripiprazole 10 Mg Tablet PO 10 mg DAILY STEPHANIE Administration Buprenorphine 300 mg 10/09/20 01:00 10/09/20 01:10 Buprenorphine Extended Release 300 Mg/1.5 Ml Daniel.Syr SUBCUT Not Given Q30D STEPHANIE Buprenorphine/Naloxone 1 film 10/09/20 09:00 10/19/20 20:03 Buprenorphine/Naloxone 8/2 Mg Film SUBLINGUAL 1 film BID STEPHANIE Administration Carbamazepine 200 mg 10/19/20 21:00 10/19/20 20:02 Carbamazepine Er 100 Mg Tab.Er.12h PO 200 mg BEDTIME STEPHANIE Administration Carbamazepine 100 mg 10/20/20 09:00 Carbamazepine Er 100 Mg Tab.Er.12h PO DAILY STEPHANIE Chlorpromazine HCl 100 mg 10/13/20 22:15 10/19/20 20:02 Chlorpromazine Hcl 100 Mg Tablet PO 100 mg BEDTIME PRN Administration insomnia Chlorpromazine HCl 50 mg 10/13/20 22:14 10/19/20 20:02 Chlorpromazine Hcl 25 Mg Tablet PO 50 mg BEDTIME PRN Administration Anxiety Chlorpromazine HCl 100 mg 10/15/20 16:21 10/19/20 22:37 Chlorpromazine Hcl 100 Mg Tablet PO 100 mg Q4H PRN Administration Agitation Clonidine 0.1 mg 10/16/20 09:00 10/16/20 10:17 Clonidine 0.1 Mg Patch.Tdwk TRANSDERMA 0.1 mg Th@0900 STEPHANIE Administration Protocol Clonidine HCl 0.1 mg 10/14/20 14:29 10/19/20 22:37 Clonidine Hcl 0.1 Mg Tablet PO 0.1 mg Q4H PRN Administration Anxiety Protocol Cyproheptadine HCl 4 mg 10/19/20 21:00 10/19/20 20:03 Cyproheptadine Hcl 4 Mg Tablet PO 4 mg BEDTIME STEPHANIE Administration Duloxetine HCl 60 mg 10/09/20 09:00 10/19/20 08:24 Duloxetine Hcl 60 Mg Capsule.Dr PO 60 mg DAILY STEPHANIE Administration Hydroxyzine HCl 25 mg 10/09/20 14:05 10/19/20 22:37 Hydroxyzine Hcl 25 Mg Tablet PO 25 mg Q6H PRN Administration Anxiety Ibuprofen 400 mg 10/19/20 19:16 10/19/20 19:28 Ibuprofen 400 Mg Tablet PO 400 mg Q6H PRN Administration Pain, Severe (Pain Scale 7-10) Lidocaine 1 appl 10/19/20 10:17 10/19/20 16:45 Lidocaine 5 % Ointment 35 Gm TOPICAL 1 appl Q6H PRN Administration Pain, Moderate (Pain Scale 4-6 Protocol Magnesium Hydroxide 30 ml 10/09/20 14:05 10/19/20 20:03 Milk Of Magnesia 30 Ml Oral.Susp PO 30 ml DAILY PRN Administration Constipation Mirtazapine 45 mg 10/09/20 21:00 10/19/20 20:02 Mirtazapine 15 Mg Tablet PO 45 mg BEDTIME STEPHANIE Administration Nicotine Polacrilex 2 mg 10/10/20 10:23 10/19/20 20:02 Nicotine Polacrilex 2 Mg Gum BUCCAL 2 mg Q2H PRN Administration Nicotine Cravings Omeprazole 20 mg 10/19/20 19:30 10/19/20 19:29 Omeprazole 20 Mg Capsule.Dr PO 20 mg BID@0630,0910 STEPHANIE Administration Oxybutynin Chloride 10 mg 10/09/20 09:00 10/19/20 08:24 Oxybutynin Chloride Er 5 Mg Tab.Er.24 PO 10 mg DAILY STEPHANIE Administration Prazosin HCl 2 - 4 mg 10/08/20 23:47 10/19/20 20:03 Prazosin Hcl 1 Mg Capsule PO 4 mg BEDTIME PRN Administration nightmares Protocol Sumatriptan Succinate 50 mg 10/13/20 12:33 Sumatriptan Succinate 50 Mg Tablet PO DAILY PRN Migraine Headache Allergies Allergies Allergy/AdvReac Type Severity Reaction Status Date / Time amoxicillin [AMOXICILLIN] Allergy Intermediate STOMACH Verified 12/16/19 18:31 UPSET, stomach pain and diarrhea trazodone [TRAZODONE] Allergy Intermediate UNKNOWN Verified 12/16/19 18:31 ketorolac [From TORADOL] Allergy Mild RASH Verified 12/16/19 18:31 Sulfa (Sulfonamide Allergy Mild GI UPSET Verified 12/16/19 18:31 Antibiotics) acetaminophen [Vicodin] Allergy Unknown Unknown Verified 12/16/19 18:31 magnesium [MAGNESIUM] Allergy Unknown UNKNOWN Verified 12/16/19 18:31 promethazine [From PHENERGAN] Allergy Unknown UNKNOWN Verified 12/16/19 18:31 quetiapine [Seroquel] Allergy Unknown Unknown Verified 12/16/19 18:31 tramadol [TRAMADOL] Allergy Unknown UNK Verified 12/16/19 18:31 doxycycline Allergy Rash Verified 09/06/20 20:02 vancomycin Allergy Anaphylaxis Verified 09/06/20 20:02 hydrocodone [From VICODIN] AdvReac Mild MIGRAINES Verified 12/16/19 18:31 metoclopramide [From REGLAN] AdvReac Unknown PT STATES Verified 12/16/19 18:31 GETTING SHAKY pregabalin [From LYRICA] AdvReac Unknown HALLUCINATI Verified 12/16/19 18:31 ONS naproxen [From Naprosyn] AdvReac Vomiting Verified 10/19/20 19:15 Sulfacet-R Allergy Unknown Stomache Uncoded 02/19/19 00:00 pain and diarrhea Assessment & Plan Assessment & Plan (1) Major depressive disorder, recurrent severe without psychotic features: Status: Acute Code(s): F33.2 - Major depressive disorder, recurrent severe without psychotic features (2) Opioid use disorder: Status: Acute Code(s): F11.99 - Opioid use, unspecified with unspecified opioid-induced disorder Assessment and Plan: continue on bupe. (3) Cocaine abuse: Status: Acute Code(s): F14.10 - Cocaine abuse, uncomplicated Assessment and Plan: abstain. supportive care during detox. Assessment and Plan: PERIACTIN FOR NIGHTMARESINSOMNIA LIDOCAINE CREAM FOR PAIN BY FASCIOTOMY REFERRAL TO [facility] CONt abilify FOR DEPRESSION ON SUBOXONE REFERRAL TO [facility]. Greater than 50% of the session was spent on counseling and/or coordination of care Reason for contiued inpatient stay Substantial Risk for: harm to self
[2020-10-20 06:00] VITALS: BP 129/81; PULSE 100; RESP 16; TEMP 36.4; O2SAT 97
[2020-10-20] MEDS: Buprenorphine/Naloxone 8/2 mg FILM 1 FILM SUBLINGUAL ×2 (08:13→20:02)
[2020-10-20] MEDS: Omeprazole 20 MG CAPSULE.DR PO ×2 (08:13→16:59)
[2020-10-20] MEDS: DULoxetine HCl 60 MG CAPSULE.DR PO (08:14)
[2020-10-20] MEDS: carBAMazepine ER 100 MG TAB.ER.12H PO (08:14)
[2020-10-20] MEDS: ARIPiprazole 10 MG TABLET PO (08:14)
[2020-10-20] MEDS: Ibuprofen 400 MG TABLET PO ×2 (08:21→20:03)
[2020-10-20] MEDS: Nicotine Polacrilex 2 MG GUM BUCCAL ×4 (08:21→18:46)
[2020-10-20] MEDS: chlorproMAZINE HCl 100 MG TABLET PO ×4 (12:17→20:58)
[2020-10-20] MEDS: hydrOXYzine HCL 25 MG TABLET PO ×2 (12:17→17:56)
[2020-10-20 15:14] VITALS: BP 126/69; PULSE 91
[2020-10-20] MEDS: cloNIDine HCL 0.1 MG TABLET PO ×2 (15:14→19:49)
--- NOTE | 2020-10-20 15:29 | P.PNPSI_ITS ---
Subjective Subjective Date of Service: 10/20/20 Reason For Visit: SI Interim History: pt reports she has signed a 3-day, planning to discharge [facility]. MD informs her today will not work, but tomorrow is a possibility. thinking of [facility] or [facility]. agreeable to try increased dose of tegretol for mood/anxiety. no other complaints or requests. per staff, irritable, anxious, depressed, frustrated. refusing to meet for 1:1 check-ins with assigned staff. started on periactinv for nightmares. c/o 11/30 anx/dep. c/o pain. no SI/HI. taking lots of thorazine overnight, prazosin 4 mg QHS. Mental Status Exam Mental Status Exam Narrative: in milieu watching TV, appropriately dressed and groomed. cooperative with interview. no PMA/PMR observed. speech soft, nml rate and amount. thoughts linear and logical. affect full range and non-labile. no SI/SIBI/HI/AVH expressed. Diagnostics Vital Signs (24Hr): Vital Signs - 24 hr 10/19/20 17:54 10/19/20 19:54 10/19/20 20:03 Temperature 98.7 F Pulse Rate 89 80 80 Respiratory Rate Blood Pressure 105/60 113/69 113/69 Pulse Oximetry 97 10/19/20 22:37 10/20/20 06:00 10/20/20 15:14 Temperature 97.6 F Pulse Rate 119 H 100 91 Respiratory Rate 16 Blood Pressure 122/68 129/81 126/69 Pulse Oximetry 97 Body Mass Index 28.3 Labs Results: 10/10/20 06:19 10/08/20 12:28 Medications Medications Current Medications Generic Name Dose Route Start Last Admin Trade Name Freq PRN Reason Stop Dose Admin Acetaminophen 650 mg 10/09/20 14:05 10/19/20 16:45 Acetaminophen 325 Mg Tablet PO 650 mg Q6H PRN Administration Headache/Pain Mild Scale (1-3) Al Hydroxide/Mg Hydroxide 30 ml 10/09/20 14:05 Magnesium Hydrox/Alum Hydrox 30 Ml Oral.Susp PO Q6H PRN Heartburn/Nausea Albuterol Sulfate 2 puff 10/08/20 23:47 10/18/20 09:03 Albuterol Sulfate 90 Mcg 8 Gm Inhaler INHALE 2 puff Q4H PRN Administration Shortness Of Breath Aripiprazole 10 mg 10/09/20 09:00 10/20/20 08:14 Aripiprazole 10 Mg Tablet PO 10 mg DAILY STEPHANIE Administration Buprenorphine 300 mg 10/09/20 01:00 10/09/20 01:10 Buprenorphine Extended Release 300 Mg/1.5 Ml Daniel.Syr SUBCUT Not Given Q30D STEPHANIE Buprenorphine/Naloxone 1 film 10/09/20 09:00 10/20/20 08:13 Buprenorphine/Naloxone 8/2 Mg Film SUBLINGUAL 1 film BID STEPHANIE Administration Carbamazepine 200 mg 10/19/20 21:00 10/19/20 20:02 Carbamazepine Er 100 Mg Tab.Er.12h PO 200 mg BEDTIME STEPHANIE Administration Carbamazepine 100 mg 10/20/20 09:00 10/20/20 08:14 Carbamazepine Er 100 Mg Tab.Er.12h PO 100 mg DAILY STEPHANIE Administration Chlorpromazine HCl 100 mg 10/13/20 22:15 10/19/20 20:02 Chlorpromazine Hcl 100 Mg Tablet PO 100 mg BEDTIME PRN Administration insomnia Chlorpromazine HCl 50 mg 10/13/20 22:14 10/19/20 20:02 Chlorpromazine Hcl 25 Mg Tablet PO 50 mg BEDTIME PRN Administration Anxiety Chlorpromazine HCl 100 mg 10/15/20 16:21 10/20/20 12:17 Chlorpromazine Hcl 100 Mg Tablet PO 100 mg Q4H PRN Administration Agitation Clonidine 0.1 mg 10/16/20 09:00 10/16/20 10:17 Clonidine 0.1 Mg Patch.Tdwk TRANSDERMA 0.1 mg Th@0900 STEPHANIE Administration Protocol Clonidine HCl 0.1 mg 10/14/20 14:29 10/20/20 15:14 Clonidine Hcl 0.1 Mg Tablet PO 0.1 mg Q4H PRN Administration Anxiety Protocol Cyproheptadine HCl 4 mg 10/19/20 21:00 10/19/20 20:03 Cyproheptadine Hcl 4 Mg Tablet PO 4 mg BEDTIME STEPHANIE Administration Duloxetine HCl 60 mg 10/09/20 09:00 10/20/20 08:14 Duloxetine Hcl 60 Mg Capsule.Dr PO 60 mg DAILY STEPHANIE Administration Hydroxyzine HCl 25 mg 10/09/20 14:05 10/20/20 12:17 Hydroxyzine Hcl 25 Mg Tablet PO 25 mg Q6H PRN Administration Anxiety Ibuprofen 400 mg 10/19/20 19:16 10/20/20 08:21 Ibuprofen 400 Mg Tablet PO 400 mg Q6H PRN Administration Pain, Severe (Pain Scale 7-10) Lidocaine 1 appl 10/19/20 10:17 10/19/20 16:45 Lidocaine 5 % Ointment 35 Gm TOPICAL 1 appl Q6H PRN Administration Pain, Moderate (Pain Scale 4-6 Protocol Magnesium Hydroxide 30 ml 10/09/20 14:05 10/19/20 20:03 Milk Of Magnesia 30 Ml Oral.Susp PO 30 ml DAILY PRN Administration Constipation Mirtazapine 45 mg 10/09/20 21:00 10/19/20 20:02 Mirtazapine 15 Mg Tablet PO 45 mg BEDTIME STEPHANIE Administration Nicotine Polacrilex 2 mg 10/10/20 10:23 10/20/20 13:25 Nicotine Polacrilex 2 Mg Gum BUCCAL 2 mg Q2H PRN Administration Nicotine Cravings Omeprazole 20 mg 10/19/20 19:30 10/20/20 08:13 Omeprazole 20 Mg Capsule.Dr PO 20 mg BID@0630,1630 STEPHANIE Administration Oxybutynin Chloride 10 mg 10/09/20 09:00 10/20/20 08:14 Oxybutynin Chloride Er 5 Mg Tab.Er.24 PO 10 mg DAILY STEPHANIE Administration Prazosin HCl 2 - 4 mg 10/08/20 23:47 10/19/20 20:03 Prazosin Hcl 1 Mg Capsule PO 4 mg BEDTIME PRN Administration nightmares Protocol Sumatriptan Succinate 50 mg 10/13/20 12:33 Sumatriptan Succinate 50 Mg Tablet PO DAILY PRN Migraine Headache Allergies Allergies Allergy/AdvReac Type Severity Reaction Status Date / Time amoxicillin [AMOXICILLIN] Allergy Intermediate STOMACH Verified 12/16/19 18:31 UPSET, stomach pain and diarrhea trazodone [TRAZODONE] Allergy Intermediate UNKNOWN Verified 12/16/19 18:31 ketorolac [From TORADOL] Allergy Mild RASH Verified 12/16/19 18:31 Sulfa (Sulfonamide Allergy Mild GI UPSET Verified 12/16/19 18:31 Antibiotics) acetaminophen [Vicodin] Allergy Unknown Unknown Verified 12/16/19 18:31 magnesium [MAGNESIUM] Allergy Unknown UNKNOWN Verified 10/25/20 18:31 promethazine [From PHENERGAN] Allergy Unknown UNKNOWN Verified 12/16/19 18:31 quetiapine [Seroquel] Allergy Unknown Unknown Verified 12/16/19 18:31 tramadol [TRAMADOL] Allergy Unknown UNK Verified 12/16/19 18:31 doxycycline Allergy Rash Verified 09/06/20 20:02 vancomycin Allergy Anaphylaxis Verified 09/06/20 20:02 hydrocodone [From VICODIN] AdvReac Mild MIGRAINES Verified 12/16/19 18:31 metoclopramide [From REGLAN] AdvReac Unknown PT STATES Verified 12/16/19 18:31 GETTING SHAKY pregabalin [From LYRICA] AdvReac Unknown HALLUCINATI Verified 12/16/19 18:31 ONS naproxen [From Naprosyn] AdvReac Vomiting Verified 10/19/20 19:15 Sulfacet-R Allergy Unknown Stomache Uncoded 02/19/19 00:00 pain and diarrhea Assessment & Plan Assessment & Plan (1) Major depressive disorder, recurrent severe without psychotic features: Status: Acute Code(s): F33.2 - Major depressive disorder, recurrent severe without psychotic features Assessment and Plan: keep safe on locked unit.? continue outpt meds.? denied SI upon arrival on unit.? supportive care during cocaine withdrawal dysphoria.? started trial of clonidine patch 10/16 for anxiety. ? tapered propranolol to accommodate clonidine.? pt uses cocaine heavily so beta blockers are an unattractive class of anti-hypertensive for her in any case.? started tegretol 10/16 in case pt has bipolar disorder, as supported by poor sleep and lack of responsiveness to thorazine (PTSD Sx may also explain this insomnia and relative lack of response to thorazine). tegretol titrated to 100/200 over the weekend, on to 200 BID as of 10/21. (2) Opioid use disorder: Status: Acute Code(s): F11.99 - Opioid use, unspecified with unspecified opioid-induced disorder Assessment and Plan: continue on bupe. (3) Cocaine abuse: Status: Acute Code(s): F14.10 - Cocaine abuse, uncomplicated Assessment and Plan: abstain. supportive care during detox. Greater than 50% of the session was spent on counseling and/or coordination of care Reason for contiued inpatient stay Substantial Risk for: harm to self and rapid decompensation
[2020-10-20 19:49] VITALS: BP 106/64; PULSE 81
[2020-10-20 19:53] VITALS: TEMP 36.6
[2020-10-20 20:02] VITALS: BP 106/64; PULSE 81
[2020-10-20] MEDS: Prazosin HCL 1 MG CAPSULE PO (20:02)
[2020-10-20] MEDS: carBAMazepine ER 100 MG TAB.ER.12H 200 MG PO (20:03)
[2020-10-20] MEDS: Mirtazapine 15 MG TABLET 45 MG PO (20:03)
[2020-10-20] MEDS: Cyproheptadine HCl 4 MG TABLET PO (20:03)
[2020-10-20] MEDS: chlorproMAZINE HCl 25 MG TABLET 50 MG PO (20:03)
[2020-10-21] MEDS: Omeprazole 20 MG CAPSULE.DR PO (10:06)
[2020-10-21] MEDS: Buprenorphine/Naloxone 8/2 mg FILM 1 FILM SUBLINGUAL (10:06)
[2020-10-21] MEDS: ARIPiprazole 10 MG TABLET PO (10:07)
[2020-10-21] MEDS: DULoxetine HCl 60 MG CAPSULE.DR PO (10:07)
[2020-10-21] MEDS: carBAMazepine ER 200 MG TAB.ER.12H PO (10:07)
[2020-10-21 10:09] VITALS: BP 114/66; PULSE 97; RESP 16; TEMP 36.6; O2SAT 96
[2020-10-21] MEDS: hydrOXYzine HCL 25 MG TABLET PO (10:11)
[2020-10-21] MEDS: chlorproMAZINE HCl 100 MG TABLET PO (10:11)
[2020-10-21] MEDS: Nicotine Polacrilex 2 MG GUM BUCCAL (10:11)
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
[2020-10-21 13:33] VITALS: BP 142/80; PULSE 91
[2020-10-21] MEDS: cloNIDine HCL 0.1 MG TABLET PO (13:33)
--- NOTE | 2020-10-21 14:19 | PC.NURSE ---
PT aware and ready for discharge. Pt affect bright, reports mood is good. PT denies SI/HI, denies AVH. PT future focused, aware of scheduled appointments. PT declined to have PCP contacted and will schedule her own appointment. Discharge instructions discussed, all questions answered. Belongings returned. Pt ambulated off unit with steady gait.
== END 2020-10-21 14:20 | disposition home or self-care (01) | DRG 885 ==
LOC: HO.ED 23:38 → HO.PADLT16 10-09 14:18
PROVIDERS: Physician Assistant Medical; Social Worker; Admitting Provider Psychiatry & Neurology Psychiatry; Emergency Provider Emergency Medicine; Visit Provider Psychiatry & Neurology Psychiatry
DX: F33.2 Major depressive disorder, recurrent severe without psychotic features (principal); R45.851 Suicidal ideations; F17.210 Nicotine dependence, cigarettes, uncomplicated; Z71.6 Tobacco abuse counseling; F11.10 Opioid abuse, uncomplicated; F14.10 Cocaine abuse, uncomplicated; Z91.5 Personal history of self-harm; Z20.822 Contact with and (suspected) exposure to COVID-19; Z88.0 Allergy status to penicillin; Z88.2 Allergy status to sulfonamides; Z88.6 Allergy status to analgesic agent; Z79.899 Other long term (current) drug therapy
CPT/HCPCS: 36415; 80048; 80061; 80076; 80143; 80179; 80307; 81003; 82077; 82607; 82746; 82947; 83036; 83605; 83690; 83735; 84443; 84702; 85025; 87040; 87635; 93005; 96361; 96372; 96374; 96375; 99285; 99291; J1200

== ENCOUNTER 2020-10-25 09:14 | Emergency (ER) | payer MEDICARE, MEDICAID, SELFPAY ==
--- NOTE | ~2020-10-25 | CT_ITS ---
EXAMINATION: CT ABDOMEN AND PELVIS WITH CONTRAST CLINICAL INFORMATION: diffuse ttp. N/V COMPARISON: 12/15/2019 TECHNIQUE: Multidetector volumetric imaging was performed from the superior aspect of the liver through the pubic symphysis following administration of 85 cc of Omnipaque intravenous contrast Sagittal and coronal reformatted images were obtained on the technologist workstation.. This CT examination was performed using dose optimization techniques as appropriate, variously including the following: *Automated exposure control *Adjustment of mA and/or kV according to patient size (this includes techniques or standardized protocols for targeted exams where dose is matched to indication/reason for exam; i.e. extremities or head) *Use of iterative reconstruction technique DLP: 553 mGy-cm FINDINGS: LUNG BASES: Minimal dependent atelectasis. LIVER, GALLBLADDER, AND BILIARY TREE: The liver is normal in size, shape, and attenuation. No focal hepatic lesion or biliary ductal dilatation is present. The gallbladder is unremarkable with no evidence of radiopaque gallstones, gallbladder wall thickening, or obvious pericholecystic inflammatory changes. PANCREAS: Unremarkable. SPLEEN: Unremarkable. ADRENAL GLANDS: Unremarkable. KIDNEYS AND URETERS: The kidneys are normal in size, shape, and attenuation. No hydronephrosis, hydroureter, or obstructing calculi seen. Tiny punctate calculi in the right mid pole collecting system again noted. No perinephric stranding. BLADDER: Unremarkable. GASTROINTESTINAL TRACT: Portions of the sigmoid colon and descending colon are decompressed and difficult to evaluate but I do not appreciate any other regions of definitive colonic wall thickening or pericolonic inflammatory changes. No obstructive changes to the bowel. ABDOMINAL WALL: No significant hernia is appreciated. LYMPHOVASCULAR STRUCTURES: No lymphadenopathy. The aorta is unremarkable. PELVIC VISCERA: Uterus is surgically absent. Physiologic changes in the bilateral adnexa OSSEOUS STRUCTURES: Unremarkable. CT/CT abdomen pelvis w con IMPRESSION: No acute intra-abdominal process seen. No acute process seen when compared to the prior CT scan from 2019.
[2020-10-25 09:21] VITALS: BP 163/101; PULSE 83; RESP 20; TEMP 36.8; O2SAT 98; BMI 28.2
[2020-10-25] MEDS: 0.9 % Sodium Chloride 1,000 ML 999 ML IVCONT ×2 (11:33→16:35)
[2020-10-25] MEDS: ondansetron HCL 4 MG/2 ML VIAL IVPUSH (11:33)
[2020-10-25] MEDS: Famotidine/PF 20 MG/2 ML VIAL IVPUSH (11:33)
[2020-10-25 11:39] LABS: Imm Gran Abs Auto 0.02 X10*3/uL (0.00-0.03); Lymphocytes Percent Auto 28.3 % (20-40); MANUAL DIFF FLAG SCAN; PLT CLUMP 1; Red Cell Distribution Width 14.2 % (11.0-16.0); SCAN SMEAR FLAG 1
[2020-10-25 11:41] LABS: Basophils Percent Auto 0.2 % (0-2); Eosinophils Absolute Auto 0.1 X10*3/uL (0.0-0.4); Eosinophils Percent Auto 1.5 % (0-4); Hematocrit 29.9 % (37-47); Hemoglobin 9.8 g/dl (12.0-16.0); Imm Gran Pct Auto 0.2 % (0.0-0.4); Lymphocytes Absolute Auto 2.3 X10*3/uL (1.2-4.9); Mean Corpuscular HGB Conc 32.8 g/dl (31.0-35.0); Mean Corpuscular Hemoglobin 29.1 pg (27.0-33.0); Mean Corpuscular Volume 88.7 fL (80-98); Monocytes Absolute Auto 0.8 X10*3/uL (0.1-1.2); Monocytes Percent Auto 9.9 % (2-11); Neutrophils Absolute Auto 4.8 X10*3/uL (2.0-8.3); Neutrophils Percent Auto 59.9 % (45-73); Red Blood Count 3.37 X10*6/uL (4.20-5.50); White Blood Count 8.1 X10*3/uL (4.8-10.8)
[2020-10-25 11:47] LABS: Alanine Aminotransferase 102 U/L (0-31); Albumin Level 4.1 g/dL (3.5-5.0); Alkaline Phosphatase 111 U/L (39-117); Anion Gap 13 (12-20); Aspartate Amino Transferase 67 U/L (5-31); Bilirubin Direct 0.2 mg/dL (0.0-0.5); Bilirubin Total 0.3 mg/dL (0.0-1.0); Blood Urea Nitrogen 9 mg/dL (9-16); Calcium 9.3 mg/dL (8.4-10.2); Carbon Dioxide 25 mmol/L (22-29); Chloride 102 mmol/L (96-108); Creatinine Clr Calc Pharmacy 101.7; Estimated Glomerular Filt Rate > 60; Glucose Random 98 mg/dL (60-115); Lipase 15 U/L (8-78); Magnesium 2.3 mg/dL (1.6-2.6); Potassium 4.2 mmol/L (3.3-5.1); Sodium 136 mmol/L (135-145)
--- NOTE | 2020-10-25 11:56 | PC.NURSE ---
TRAV RN: PT SUPINE IN BED, RR EVEN UNLABORED, SKIN WPD, AOX3. PT C/O DIFFUSE ABD PAIN W/ N/V AFTER EATING/DRINKING, DENIES NAUSEA WHEN NOT EATING. PT ALSO C/O PAIN TO L WRIST, CRAMPS IN R FOOT, MIGRAINE HEADACHE W/OUT RELIEF FROM IMITREX AT HOME, LAST USED ~0600 THIS AM. PT STS FEELING OVERWHELMED D/T HAVING NOWHERE TO STAY, I HOPE I GET ADMITTED SO I HAVE SOMEWHERE TO SLEEP , UNABLE TO GET SUBOXONE SO STS I HAD TO USE HEROIN TO PREVENT PRECIPITOUS WITHDRAWL , LAST USED THIS AM. IV ESTABLIHSED, IVF INFUSING PER EMAR, PT MEDICATED FOR NAUSEA PER EMAR. PT AWAITING CT, AWARE/AGREEABLE TO PLAN OF CARE.
--- NOTE | 2020-10-25 11:59 | ED.NAVMDI ---
HPI - Nausea/Vomiting/Diarrhea General Chief complaint: Nausea/Vomiting/Diarrhea Stated complaint: VOMITING ABD PAIN Time Seen by Provider: 10/25/20 11:07 Source: patient Mode of arrival: ambulatory History of Present Illness HPI Narrative: 40-year-old female with a past medical history of anxiety, asthma, chronic pain, cocaine abuse, depression, heroin abuse, migraines, recently discharged from on 10/21 presenting to the ED complaining of diffuse lower abdominal pain, nausea, and vomiting about 15x in the past 2 days. Also reports headache and chills. States relapsed on heroin and cocaine, last use this morning. Denies fever, chest pain, shortness of breath, dysuria/hematuria, diarrhea/constipation Related Data Home Medications Medication Instructions Recorded Confirmed buprenorphine 300 mg/1.5 mL 300 mg SUBCUT Q30D 10/08/20 10/08/20 solution,exten.rel.subcutaneous syringe (Sublocade) erenumab-aooe 70 mg/mL 70 mg SUBCUT Q30D 10/08/20 10/08/20 subcutaneous auto-injector (Aimovig Autoinjector) sumatriptan succinate 6 mg/0.5 mL 6 mg SUBCUT DAILY PRN 10/09/20 10/09/20 subcutaneous solution Previous Rx's Medication Instructions Recorded albuterol sulfate 90 mcg/actuation 2 puff INHALATION Q4H PRN 30 Days 10/21/20 aerosol inhaler (Ventolin HFA) #6.7 g aripiprazole 10 mg tablet 10 mg PO DAILY 30 Days #30 tab 10/21/20 buprenorphine 8 mg-naloxone 2 mg 1 film SUBLINGUAL BID 14 Days #28 10/21/20 sublingual film (Suboxone) ea carbamazepine 100 mg 200 mg PO BID 30 Days #120 tab 10/21/20 tablet,extended release,12 hr (Tegretol XR) chlorpromazine 100 mg tablet 100 mg PO BID PRN 30 Days #60 tab 10/21/20 clonidine HCl 0.1 mg tablet 0.1 mg PO BID 30 Days #60 tab 10/21/20 cyproheptadine 4 mg tablet 4 mg PO BEDTIME 30 Days #30 tab 10/21/20 duloxetine 60 mg capsule,delayed 60 mg PO DAILY 30 Days #30 cap 10/21/20 release ibuprofen 400 mg tablet 400 mg PO Q6H PRN 30 Days #120 tab 10/21/20 lidocaine 5 % topical ointment 1 appl TOPICAL Q6H PRN 30 Days #60 10/21/20 g mirtazapine 15 mg tablet 45 mg PO BEDTIME 30 Days #90 tab 10/21/20 omeprazole 20 mg capsule,delayed 20 mg PO BID@0630,1630 30 Days #60 10/21/20 release cap prazosin 1 mg capsule 4 mg PO BEDTIME 30 Days #120 cap 10/21/20 Allergies Allergy/AdvReac Type Severity Reaction Status Date / Time amoxicillin [AMOXICILLIN] Allergy Intermediate STOMACH Verified 12/16/19 18:31 UPSET, stomach pain and diarrhea trazodone [TRAZODONE] Allergy Intermediate UNKNOWN Verified 12/16/19 18:31 ketorolac [From TORADOL] Allergy Mild RASH Verified 12/16/19 18:31 Sulfa (Sulfonamide Allergy Mild GI UPSET Verified 12/16/19 18:31 Antibiotics) acetaminophen [Vicodin] Allergy Unknown Unknown Verified 12/16/19 18:31 magnesium [MAGNESIUM] Allergy Unknown UNKNOWN Verified 12/16/19 18:31 promethazine [From PHENERGAN] Allergy Unknown UNKNOWN Verified 12/16/19 18:31 quetiapine [Seroquel] Allergy Unknown Unknown Verified 12/16/19 18:31 tramadol [TRAMADOL] Allergy Unknown UNK Verified 12/16/19 18:31 doxycycline Allergy Rash Verified 09/06/20 20:02 vancomycin Allergy Anaphylaxis Verified 09/06/20 20:02 hydrocodone [From VICODIN] AdvReac Mild MIGRAINES Verified 12/16/19 18:31 metoclopramide [From REGLAN] AdvReac Unknown PT STATES Verified 12/16/19 18:31 GETTING SHAKY pregabalin [From LYRICA] AdvReac Unknown HALLUCINATI Verified 12/16/19 18:31 ONS naproxen [From Naprosyn] AdvReac Vomiting Verified 10/19/20 19:15 Sulfacet-R Allergy Unknown Stomache Uncoded 02/19/19 00:00 pain and diarrhea Review of Systems Review of Systems: Constitutional: No Fever, + Chills, No Night Sweats, No Fatigue, No Malaise ENT/Mouth: No Ear Pain, No Nasal Congestion, No Sinus Pain, No sore throat, No Swallowing Difficulty Eyes: No Eye Pain, No Discharge, No Vision Changes Cardiovascular: No Chest Pain, No SOB, No Edema, No Palpitations Respiratory: No Cough, No Dyspnea Gastrointestinal: + Nausea, + Vomiting, No Diarrhea, No Constipation, + Abdominal pain Genitourinary: No Dysuria, No Urinary Frequency, No Hematuria, No Urgency, No Flank Pain Musculoskeletal: No joint pain, + Myalgias, No Joint Swelling Skin: No Skin Lesions, No rash Neuro: No Weakness, No Numbness, + Headache Psych: No Anxiety/Panic, No Depression, No SI/HI, No Social Issues Yes all other systems are reviewed and are negative [facility] Past Medical History Attestation statement: The following information was validated with the patient. Medical History Anxiety Asthma Chronic pain Cocaine abuse Depression Heroin abuse Migraine Suicide attempt by beta gio overdose Tobacco dependence Tremor Surgical History S/P total abdominal hysterectomy Social History Social History Household Members: Other Household Members Other:: homeless Housing: Homeless Do you presently have visiting nurse or other home services: No Unable to assess alcohol history related to: Refusing to respond Alcohol intake: unknown Patient Tobacco Use Status: Current everyday Tobacco user Tobacco use type: Cigarette Cigarette Packs Per Day: 1 Cigarettes Per Day: 20.0 Years Smoked: 23 years Second Hand Smoke Exposure: Yes Use of substances other than those prescribed or required for medical reasons: Yes Substance Use Type: Heroin Substance Use Frequency: Chronic Longstanding Last Used Substance: Days (ago) Any prior treatment program specific to substance use: Yes Advance Directives: Yes Advance Directives Information Provided: No Advance Directives on File: No Patient : No service: No Current occupational status: employed Sexual orientation: Did not discuss. Physical Exam Vital Signs: Vital Signs: Last Vital Signs Temp 97.6 F 10/25/20 15:29 Pulse 77 10/25/20 15:29 Resp 16 10/25/20 15:29 BP 104/62 10/25/20 15:29 Pulse Ox 99 10/25/20 15:29 Body Mass Index 28.2 Const: General: cooperative, alert and awake Orientation/consciousness: patient oriented x3 Limitations: no limitations HENMT: Head: Yes normal to inspection Ears: hearing grossly normal bilaterally General nose exam: Normal external nose present Face and sinus: Yes normal facial exam Eyes: General: appearance normal, both eyes and all related structures EOM: EOMs intact bilaterally Neck: Neck: Yes normal visual inspection Resp: Effort & Inspection: normal respiratory effort and no respiratory distress Cardio: Rate: regular rate GI: Inspection: Yes normal to inspection Palpation (GI): Soft to palpation, Tenderness to palpation present (GI) (Diffusely), no guarding and not rigid Skin: Rashes: no rashes Wounds: no wounds Neuro: General: patient oriented x3 Extrem: General: Yes normal to inspection Course Course Course Narrative: -no leukocytosis. H&H stable. AST/ ALT acute on chronically elevated -1726-- CT abdomen pelvis w con IMPRESSION: No acute intra-abdominal process seen. No acute process seen when compared to the prior CT scan from 2019. >> on re-evaluation patient is sleeping comfortably. results discussed with patient. Will have care team/[facility] eval her for detox -[facility] sent referrals to a few detox is, patient would like to go home pending acceptance. Plan is for discharge MDM - Nausea/Vomiting/Diarrhea MDM Narrative Medical decision making narrative: 40-year-old female with a past medical history of anxiety, asthma, chronic pain, cocaine abuse, depression, heroin abuse, migraines, recently discharged from on 10/21 presenting to the ED complaining of diffuse lower abdominal pain, nausea, and vomiting about 15x in the past 2 days. On exam hypertensive, nontoxic, abdomen soft diffusely tender, no rebound or guarding. Concern for diverticulitis/colitis vs ?SBO although less likely vs substance abuse. Rule out metabolic and infectious etiology Plan: Labs, UA, CT, IVF, symptomatic treatment, reassess Medical Records Attestation: I reviewed the patient's medical records. Lab Data Attestation: I reviewed the patient's lab results. Result diagrams: 10/25/20 11:21 10/25/20 11:21 Labs: Lab Results 10/25/20 10/25/20 10/25/20 Range/Units 11:21 11:21 15:28 WBC 8.1 (4.8-10.8) X10*3/uL RBC 3.37 L (4.20-5.50) X10*6/uL Hgb 9.8 L (12.0-16.0) g/dl Hct 29.9 L (37-47) % MCV 88.7 (80-98) fL MCH 29.1 (27.0-33.0) pg MCHC 32.8 (31.0-35.0) g/dl RDW 14.2 (11.0-16.0) % Plt Count 420 H (160-400) X10*3/uL MPV Not Reportable Immature Gran % (Auto) 0.2 (0.0-0.4) % Neut % (Auto) 59.9 (45-73) % Lymph % (Auto) 28.3 (20-40) % [place] % (Auto) 9.9 (2-11) % Eos % (Auto) 1.5 (0-4) % Baso % (Auto) 0.2 (0-2) % Lymph # (Auto) 2.3 (1.2-4.9) X10*3/uL [place] # (Auto) 0.8 (0.1-1.2) X10*3/uL Eos # (Auto) 0.1 (0.0-0.4) X10*3/uL Baso # (Auto) 0.0 (0.0-0.2) X10*3/uL Abs Immat Gran (auto) 0.02 (0.00-0.03) X10*3/uL Absolute Neuts (auto) 4.8 (2.0-8.3) X10*3/uL Absolute Nucleated RBC 0.000 (0.0-0.012) X10*3/uL Nucleated RBC % (auto) 0.0 (0.0-0.2) /100WBC Smear Tech's Comments VERIFIED Sodium 136 (135-145) mmol/L Potassium 4.2 (3.3-5.1) mmol/L Chloride 102 (96-108) mmol/L Carbon Dioxide 25 (22-29) mmol/L Anion Gap 13 (12-20) BUN 9 (9-16) mg/dL Creatinine 0.68 (0.5-1.4) mg/dL Estim Creat Clear Calc 101.7 Estimated GFR > 60 Random Glucose 98 D (60-115) mg/dL Calcium 9.3 (8.4-10.2) mg/dL Magnesium 2.3 (1.6-2.6) mg/dL Total Bilirubin 0.3 (0.0-1.0) mg/dL Direct Bilirubin 0.2 (0.0-0.5) mg/dL AST 67 H (5-31) U/L ALT 102 H (0-31) U/L Alkaline Phosphatase 111 (39-117) U/L Total Protein 8.0 (6.5-8.0) g/dL Albumin 4.1 (3.5-5.0) g/dL Lipase 15 (8-78) U/L COVID-19 (EZE) Negative (Negative) COVID-19 Clin Com See Note Discharge Plan Discharge Clinical Impression: Abdominal pain, Nausea & vomiting, Substance abuse Patient Disposition: Home, Self-Care Instructions: Abdominal Pain (ED), Polysubstance Abuse (ED) Additional Instructions: Your blood work and CT scan were reassuring Referrals were sent for detox facilities, follow[facility]up with [facility] Do not use drugs or drink alcohol If her symptoms persist or worsen, your unable to eat or drink, have fever, please return to the ED Prescriptions: No Action Sublocade 300 mg/1.5 mL solution, extended rel syringe 300 mg subcut Q30D RF: 0 Aimovig Autoinjector 70 mg/mL auto-injector 70 mg subcut Q30D RF: 0 sumatriptan succinate 6 mg/0.5 mL solution 6 mg subcut DAILY PRN (Reason: Migraine Headache) RF: 0 cyproheptadine 4 mg Tablet 4 mg PO BEDTIME 30 Days Qty: 30 RF: 0 albuterol sulfate [Ventolin HFA] 90 mcg/actuation Hfa Aerosol Inhaler 2 puff inhalation Q4H PRN (Reason: Shortness Of Breath) 30 Days Qty: 6.7 RF: 0 clonidine HCl 0.1 mg Tablet 0.1 mg PO BID 30 Days Qty: 60 RF: 0 chlorpromazine 100 mg Tablet 100 mg PO BID PRN (Reason: Agitation) 30 Days Qty: 60 RF: 0 prazosin 1 mg Capsule 4 mg PO BEDTIME 30 Days Qty: 120 RF: 0 aripiprazole 10 mg Tablet 10 mg PO DAILY 30 Days Qty: 30 RF: 0 buprenorphine-naloxone [Suboxone] 8-2 mg Film 1 film sublingual BID 14 Days Qty: 28 RF: 0 carbamazepine [Tegretol XR] 100 mg Tablet Extended Release 12 Hr 200 mg PO BID 30 Days Qty: 120 RF: 0 ibuprofen 400 mg Tablet 400 mg PO Q6H PRN (Reason: Pain, Severe (Pain Scale 7-10)) 30 Days Qty: 120 RF: 0 mirtazapine 15 mg Tablet 45 mg PO BEDTIME 30 Days Qty: 90 RF: 0 duloxetine 60 mg Capsule,Delayed Release(Dr/Ec) 60 mg PO DAILY 30 Days Qty: 30 RF: 0 omeprazole 20 mg Capsule,Delayed Release(Dr/Ec) 20 mg PO BID@0630,1630 30 Days Qty: 60 RF: 0 lidocaine 5 % Ointment 1 appl topical Q6H PRN (Reason: Pain, Moderate (Pain Scale 4-6) 30 Days Qty: 60 RF: 0 Referrals: Laci Chacon MD [Primary Care Provider] - 2 days [facility] [Physician] - 2 days
[2020-10-25 12:10] LABS: Platelet Count 420 X10*3/uL (160-400)
[2020-10-25 12:11] LABS: SLIDE REVIEW VERIFIED
[2020-10-25 12:33] VITALS: BP 109/63; PULSE 78; RESP 16; O2SAT 98
[2020-10-25] MEDS: diphenhydrAMINE HCL 50 MG/ML VIAL 25 MG IVPUSH (13:53)
[2020-10-25] MEDS: iohexoL 350 MG/ML 100 ML INFUS..BTL IV (15:28)
[2020-10-25 15:29] VITALS: BP 104/62; PULSE 77; RESP 16; TEMP 36.4; O2SAT 99
[2020-10-25 15:49] LABS: IDNOW Serial# 9DD0AD1C
[2020-10-25 15:50] LABS: COVID-19 Test Negative (Negative)
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
[2020-10-25 18:18] VITALS: BP 146/92; PULSE 83; RESP 16; O2SAT 96
== END 2020-10-25 18:19 | disposition home or self-care (01) ==
PROVIDERS: Physician Assistant; Emergency Provider Internal Medicine; PCP Internal Medicine
DX: R10.9 Unspecified abdominal pain (principal); R11.2 Nausea with vomiting, unspecified; F19.10 Other psychoactive substance abuse, uncomplicated; F14.10 Cocaine abuse, uncomplicated; Z20.822 Contact with and (suspected) exposure to COVID-19; F17.210 Nicotine dependence, cigarettes, uncomplicated; Z91.5 Personal history of self-harm
CPT/HCPCS: 36415; 74177; 80048; 80076; 83690; 83735; 85025; 87635; 96361; 96374; 96375; 99284; J1200; J2405; Q9967

== ENCOUNTER 2020-11-02 11:55 | Emergency (ER) | payer MEDICARE, MEDICAID, SELFPAY ==
--- NOTE | ~2020-11-02 | XR_ITS ---
EXAMINATION: XR CHEST CLINICAL INFORMATION: Cough. COMPARISON: None TECHNIQUE: Frontal view of the chest was obtained. FINDINGS: No significant abnormality is noted involving the heart, lungs, mediastinum, bony thorax or soft tissues. XR/XR chest 1V IMPRESSION: Unremarkable chest examination.
[2020-11-02 12:01] VITALS: BP 134/105; PULSE 86; RESP 19; TEMP 36.6; O2SAT 98; BMI 28.3
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
[2020-11-02 12:42] LABS: MANUAL DIFF FLAG NO
[2020-11-02] MEDS: Acetaminophen 325 MG TABLET 650 MG PO (12:45)
[2020-11-02] MEDS: Lidocaine HCl Viscous 2 % 15 ML SOLUTION MUCOUS MEM (12:45)
[2020-11-02] MEDS: 0.9 % Sodium Chloride 1,000 ML 999 ML IVCONT (12:45)
[2020-11-02] MEDS: ondansetron HCL 4 MG/2 ML VIAL IVPUSH (12:45)
[2020-11-02] MEDS: Magnesium Hydrox/Alum Hydrox 30 ML ORAL.SUSP PO (12:45)
[2020-11-02] MEDS: Famotidine/PF 20 MG/2 ML VIAL IVPUSH (12:45)
[2020-11-02 12:49] LABS: Basophils Percent Auto 0.2 % (0-2); Eosinophils Absolute Auto 0.1 X10*3/uL (0.0-0.4); Eosinophils Percent Auto 1.4 % (0-4); Hematocrit 38.2 % (37-47); Hemoglobin 12.7 g/dl (12.0-16.0); Imm Gran Abs Auto 0.02 X10*3/uL (0.00-0.03); Imm Gran Pct Auto 0.2 % (0.0-0.4); Lymphocytes Absolute Auto 2.6 X10*3/uL (1.2-4.9); Lymphocytes Percent Auto 28.1 % (20-40); Mean Corpuscular HGB Conc 33.2 g/dl (31.0-35.0); Mean Corpuscular Hemoglobin 29.3 pg (27.0-33.0); Mean Corpuscular Volume 88.2 fL (80-98); Mean Platelet Volume 9.1 fL (9.4-12.3); Monocytes Absolute Auto 0.8 X10*3/uL (0.1-1.2); Monocytes Percent Auto 8.1 % (2-11); Neutrophils Absolute Auto 5.8 X10*3/uL (2.0-8.3); Platelet Count 468 X10*3/uL (160-400); Red Blood Count 4.33 X10*6/uL (4.20-5.50); Red Cell Distribution Width 14.2 % (11.0-16.0); White Blood Count 9.3 X10*3/uL (4.8-10.8)
[2020-11-02 13:12] LABS: Alanine Aminotransferase 33 U/L (0-31); Albumin Level 4.6 g/dL (3.5-5.0); Alkaline Phosphatase 114 U/L (39-117); Anion Gap 13 (12-20); Aspartate Amino Transferase 31 U/L (5-31); Bilirubin Direct < 0.2 mg/dL (0.0-0.5); Blood Urea Nitrogen 17 mg/dL (9-16); Calcium 10.1 mg/dL (8.4-10.2); Carbon Dioxide 24 mmol/L (22-29); Chloride 100 mmol/L (96-108); Creatinine Clr Calc Pharmacy 69.4; Estimated Glomerular Filt Rate > 60; Glucose Random 91 mg/dL (60-115); Lipase 21 U/L (8-78); Magnesium 2.4 mg/dL (1.6-2.6); Sodium 133 mmol/L (135-145); Total Protein 8.8 g/dL (6.5-8.0)
[2020-11-02 13:21] LABS: Bilirubin Total 0.3 mg/dL (0.0-1.0)
[2020-11-02 13:42] LABS: Influenza A PCR NEGATIVE (Negative); Influenza B PCR NEGATIVE (Negative); Resp Syncy Virus RNA Qual PCR NEGATIVE (Negative); SARS COV2 PCR INHOUSE NEGATIVE (Negative)
[2020-11-02 15:38] VITALS: BP 115/72; PULSE 79; RESP 16; TEMP 36.6; O2SAT 100
[2020-11-02] MEDS: Dicyclomine HCl 10 MG CAPSULE 20 MG PO (16:09)
[2020-11-02] MEDS: Benzonatate 100 MG CAPSULE 200 MG PO (16:09)
--- NOTE | 2020-11-02 16:11 | PC.NURSE ---
patient a&ox3, vss, pt c/o 11/30 pain of the tongue, vitals stable, pt medicated per pain, will continue to monitor.
--- NOTE | 2020-11-02 16:44 | MHC.RECOVSUP ---
? Reason for consult Recovery Support o Current location: ED9 o Identified substance use concern: Heroin - Seeking ATS (detox) - Support ? Intervention: o ATS bed search started 4:40 PM/completed 4:45PM o Community resources provided o Harm reduction discussion ? Plan: o Referral to [facility] o Follow up tomorrow o Patient awaiting crisis evaluation o Patient to follow up with [facility] after discharge ? Additional information:Patient Stated that she has been trying to go to [facility] And that she was on the waiting list.. I called [facility] and they confirm that patient was on a wait list but still no female beds at the moment... patient stated that she not feeling well. I informed person in charge.
[2020-11-02] MEDS: Albuterol Sulfate 90 MCG 8 GM INHALER 4 PUFF INHALE (16:45)
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
--- NOTE | 2020-11-02 19:19 | MHC.CARE ---
Crisis evaluation recommended by ED provider. CARE team completed assessment with plan for [facility] placement. ED provider Gwen RESENDIZ is in agreement with plan of care. No beds available within 50 mile radius. Pt will remain in ED this evening and bedsearch will continue tomorrow.
[2020-11-02 23:58] VITALS: BP 111/69; PULSE 71; RESP 16; TEMP 36.7; O2SAT 98
[2020-11-03] MEDS: Albuterol Sulfate 90 MCG 8 GM INHALER 2 PUFF INHALE ×2 (04:24→08:22)
[2020-11-03 05:19] LABS: Appearance Urine HAZY; Color Urine YELLOW; Glucose Urine UA NEG (NEG); Leukocyte Esterase Urine NEG (NEG); Nitrite Urine NEG (NEG); PH 6.5 (5.0-8.0); Specific Gravity - Urine 1.015 (1.005-1.025); UACC Culture Trigger NO; Urine Blood NEG (NEG); Urine Ketones NEG (NEG); Urine Protein NEG (NEG-TRACE)
[2020-11-03 05:20] LABS: UPreg QC Valid YES; Urine Pregnancy NEGATIVE (NEGATIVE)
[2020-11-03 05:30] LABS: Amphetamine Screen Urine Not Detected (Not Detect); Barbiturates, Urine Not Detected (Not Detect); Benzodiazepines Screen Urine Not Detected (Not Detect); Cannabinoid Screen Urine Not Detected (Not Detect); Cocaine Screen Urine POSITIVE (Not Detect); Fentanyl, urine POSITIVE (Not Detect); Opiate Screen Urine POSITIVE (Not Detect); Phencyclidine Screen Urine Not Detected (Not Detect)
[2020-11-03] MEDS: Omeprazole 20 MG CAPSULE.DR PO (05:30)
[2020-11-03 05:31] VITALS: BP 111/69; PULSE 71
[2020-11-03] MEDS: cloNIDine HCL 0.1 MG TABLET PO (05:31)
--- NOTE | 2020-11-03 05:41 | PC.NURSE ---
Patient slept through the night, no distress observed/reported except intermittent coughing which started towards morning, patient's disposition per care team is section 12 EATS bed search, med compliant, behavior not concerning at this time may escalate, VSS, appetite good, will continue to monitor.
--- NOTE | 2020-11-03 07:07 | PC.NURSE ---
patient remains asleep at present with even regular respirations, patient appears in no distress.
[2020-11-03 08:21] VITALS: BP 111/69; PULSE 71
[2020-11-03] MEDS: chlorproMAZINE HCl 100 MG TABLET PO (08:21)
[2020-11-03] MEDS: DULoxetine HCl 60 MG CAPSULE.DR PO (08:21)
[2020-11-03] MEDS: Propranolol HCL LA 60 MG CAP.SA.24H 120 MG PO (08:21)
[2020-11-03] MEDS: ARIPiprazole 10 MG TABLET PO (08:21)
--- NOTE | 2020-11-03 08:21 | MHC.CARE ---
Pt accepted to [facility] for 1030am
--- NOTE | 2020-11-03 10:23 | MHC.RECOVSUP ---
Recovery Support note: Patient is a 40 year old Kinyarwanda speaking female who presented to [facility] ED due to mouth sores. Patient is known to this senior mortgage underwriter from previous consultations. Patient requested help for her substance use disorder while in the ED. Patient was seen by Relationship Management Lead and by the CARE Team. Patient was accepted to [facility] for EATS this morning. This senior mortgage underwriter met with patient to discuss plan and assist with discharge. Patient transported to [facility] via Lyft.
== END 2020-11-03 10:17 | disposition short-term general hospital (02) ==
PROVIDERS: Physician Assistant; Emergency Provider Student in an Organized Health Care Education/Training Program; PCP Internal Medicine
DX: R11.10 Vomiting, unspecified (principal); R19.7 Diarrhea, unspecified; F17.210 Nicotine dependence, cigarettes, uncomplicated; Z20.822 Contact with and (suspected) exposure to COVID-19; Z71.6 Tobacco abuse counseling; Z79.899 Other long term (current) drug therapy
CPT/HCPCS: 0241U; 36415; 71045; 80048; 80076; 80307; 81003; 81025; 83690; 83735; 85025; 94640; 96365; 96375; 99285; J2405

== ENCOUNTER 2020-11-03 12:07 | Emergency (ER) | payer MEDICARE, MEDICAID, SELFPAY ==
[2020-11-03 12:43] VITALS: BP 130/80; BP 96/64; PULSE 73; PULSE 76; RESP 16; TEMP 36.7; O2SAT 97; BMI 26.6
--- NOTE | 2020-11-03 14:14 | ED_ITS ---
HPI - Psych General Chief Complaint: Psychiatric Symptoms Stated Complaint: si Time Seen by Provider: 11/03/20 12:25 Source: EMS Mode of arrival: EMS Limitations: no limitations History of Present Illness HPI Narrative: Patient comes to the emergency room complaining after being discharged about an hour ago. Patient was discharged to ?the living room?. When patient got there, patient refused to exchange clerk and was brought back to the emergency room. Related Data Home Medications Medication Instructions Recorded Confirmed albuterol sulfate 90 mcg/actuation 2 puff INHALATION Q4H PRN 11/02/20 11/02/20 aerosol inhaler (Ventolin HFA) aripiprazole 10 mg tablet 1 tab PO DAILY 11/02/20 11/02/20 buprenorphine 8 mg-naloxone 2 mg 1 strip SUBLINGUAL BID 11/02/20 11/02/20 sublingual film chlorpromazine 100 mg tablet 1 tab PO BID 11/02/20 11/02/20 chlorpromazine 25 mg tablet 1 tab PO TID PRN 11/02/20 11/02/20 clonidine HCl 0.1 mg tablet 1 tab PO BID PRN 11/02/20 11/02/20 cyproheptadine 4 mg tablet 1 tab PO BEDTIME 11/02/20 11/02/20 duloxetine 60 mg capsule,delayed 1 cap PO QAM 11/02/20 11/02/20 release ibuprofen 400 mg tablet 1 tab PO Q6H PRN 11/02/20 11/02/20 mirtazapine 15 mg tablet 15 mg PO BEDTIME 11/02/20 11/02/20 omeprazole 20 mg capsule,delayed 1 cap PO QAM 11/02/20 11/02/20 release prazosin 1 mg capsule 4 cap PO BEDTIME 11/02/20 11/02/20 propranolol 120 mg capsule,24 1 cap PO DAILY 11/02/20 11/02/20 hr,extended release zolpidem 10 mg tablet 1 tab PO BEDTIME PRN 11/02/20 11/02/20 Allergies Allergy/AdvReac Type Severity Reaction Status Date / Time amoxicillin [AMOXICILLIN] Allergy Intermediate STOMACH Verified 12/16/19 18:31 UPSET, stomach pain and diarrhea trazodone [TRAZODONE] Allergy Intermediate UNKNOWN Verified 12/16/19 18:31 ketorolac [From TORADOL] Allergy Mild RASH Verified 12/16/19 18:31 Sulfa (Sulfonamide Allergy Mild GI UPSET Verified 12/16/19 18:31 Antibiotics) acetaminophen [Vicodin] Allergy Unknown Unknown Verified 12/16/19 18:31 magnesium [MAGNESIUM] Allergy Unknown UNKNOWN Verified 12/16/19 18:31 promethazine [From PHENERGAN] Allergy Unknown UNKNOWN Verified 12/16/19 18:31 quetiapine [Seroquel] Allergy Unknown Unknown Verified 12/16/19 18:31 tramadol [TRAMADOL] Allergy Unknown UNK Verified 12/16/19 18:31 doxycycline Allergy Rash Verified 09/06/20 20:02 vancomycin Allergy Anaphylaxis Verified 09/06/20 20:02 hydrocodone [From VICODIN] AdvReac Mild MIGRAINES Verified 12/16/19 18:31 metoclopramide [From REGLAN] AdvReac Unknown PT STATES Verified 12/16/19 18:31 GETTING SHAKY pregabalin [From LYRICA] AdvReac Unknown HALLUCINATI Verified 12/16/19 18:31 ONS naproxen [From Naprosyn] AdvReac Vomiting Verified 10/19/20 19:15 Sulfacet-R Allergy Unknown Stomache Uncoded 02/19/19 00:00 pain and diarrhea Review of Systems Review of Systems: Constitutional : No Weight loss, No Fever, No Chills, No Night Sweats, No Fatigue, No Malaise ENT/Mouth : No Hearing loss, No Ear Pain, No Nasal Congestion, No Sinus Pain, No Hoarseness, No sore throat, No Rhinorrhea, No Swallowing Difficulty Eyes: No Eye Pain, No Swelling, No Redness, No Foreign Body, No Discharge, No Vision Changes Cardiovascular : No Chest Pain, No SOB, No Dyspnea on Exertion, No Orthopnea, No Edema, No Palpitations Respiratory : No Cough, No Sputum, No Wheezing, No Smoke Exposure, No Dyspnea Gastrointestinal : No Nausea, No Vomiting, No Diarrhea, No Constipation, No abdominal Pain, No Hematochezia, No Melena Genitourinary : no irregular bleeding, No Dysuria, No Urinary Frequency, No Hematuria, No Urinary Incontinence, No Urgency, No Flank Pain, No Urinary Flow Changes, No Hesitancy Musculoskeletal : No joint pain, No Myalgias, No Joint Swelling Skin : No Skin Lesions, No rash Neuro : No Weakness, No Numbness, No Paresthesias, No Loss of Consciousness, No Dizziness, No Headache Psych : Complaining of suicidal ideation Heme/Lymph: No Bruising, No Bleeding,No Lymphadenopathy Endocrine : No Polyuria, No Polydipsia, No Temperature Intolerance [facility] Past Medical History Medical History Anxiety Asthma Chronic pain Cocaine abuse Depression Heroin abuse Migraine Suicide attempt by beta gio overdose Tobacco dependence Tremor Surgical History S/P total abdominal hysterectomy Social History Social History Household Members: Other Household Members Other:: homeless Housing: Homeless Do you presently have visiting nurse or other home services: No Unable to assess alcohol history related to: Refusing to respond Alcohol intake: unknown Patient Tobacco Use Status: Current everyday Tobacco user Tobacco use type: Cigarette Cigarette Packs Per Day: 1 Cigarettes Per Day: 20.0 Years Smoked: 23 years Second Hand Smoke Exposure: Yes Substance Use Type: Heroin Advance Directives: No Patient : No service: No Current occupational status: employed Sexual orientation: Did not discuss. Physical Exam Vital Signs: Vital Signs: Last Vital Signs Temp 98.1 F 11/03/20 12:43 Pulse 73 11/03/20 12:43 Resp 16 11/03/20 12:43 BP 96/64 11/03/20 12:43 Pulse Ox 97 11/03/20 12:43 Body Mass Index 26.6 Const: Other: Appearance: Alert. Oriented X3. No acute distress. Eyes: Pupils equal, round and reactive to light. ENT: Pharynx normal. Neck: Normal inspection. Neck supple. No lymph nodes noted. No crepitus CVS: Normal heart rate and rhythm. Pulses normal. Normal S1 and S2 Respiratory: No respiratory distress. Breath sounds normal. No Wheezing. No rales Abdomen: Soft and nontender. No rigidity. No distention. good BS x4 Skin: Skin warm and dry. Normal skin color. Normal skin turgor. Extremities: No lower extremity edema. No lower extremity edema. No Lacerations. No Rash Neuro: Oriented X 3. No motor deficit. No sensory deficit. Moving all extermities. No slurred speech. Course Course Course Narrative: Behavioral health network evaluated the patient. At this time, they will try to send the patient back to the living room versus finding a detox bed for her in the morning. When patient was offered by [facility] to return to the living room, patient stated that she has vomiting and diarrhea. Patient did not mention this when she came to the emergency room, she has not had any episodes of vomiting or diarrhea in the ED At this time, [facility] is trying to determine the disposition of the patient Patient was given the option staying here in the emergency room overnight and being transferred to detox in the morning. Unfortunately, patient is known to be very manipulative. Patient tried telling the care team that if she gets discharged under any circumstance because she is homeless, she will walk into oncoming traffic. Patient is afraid to go anywhere where she could possibly be discharged since she is homeless. The plan for now is to let her stay here until tomorrow, and then in the morning she can be taken to the detox facility Sign-out given to Dr. Austin Physician observation started at 16:00 Discharge Plan Discharge Clinical Impression: Substance abuse Prescriptions: No Action clonidine HCl 0.1 mg tablet 1 tab PO BID PRN (Reason: Anxiety) RF: 0 chlorpromazine 100 mg tablet 1 tab PO BID RF: 0 chlorpromazine 25 mg tablet 1 tab PO TID PRN (Reason: Anxiety) RF: 0 zolpidem 10 mg tablet 1 tab PO BEDTIME PRN (Reason: Insomnia) RF: 0 aripiprazole 10 mg tablet 1 tab PO DAILY RF: 0 buprenorphine-naloxone 8-2 mg film 1 strip sublingual BID RF: 0 prazosin 1 mg capsule 4 cap PO BEDTIME RF: 0 cyproheptadine 4 mg tablet 1 tab PO BEDTIME RF: 0 ibuprofen 400 mg tablet 1 tab PO Q6H PRN (Reason: severe pain) RF: 0 omeprazole 20 mg capsule,delayed release(DR/EC) 1 cap PO QAM RF: 0 mirtazapine 15 mg tablet 15 mg PO BEDTIME RF: 0 propranolol 120 mg capsule,extended release 24 hr 1 cap PO DAILY RF: 0 albuterol sulfate [Ventolin HFA] 90 mcg/actuation HFA aerosol inhaler 2 puff inhalation Q4H PRN (Reason: dyspnea) RF: 0 duloxetine 60 mg capsule,delayed release(DR/EC) 1 cap PO QAM RF: 0
--- NOTE | 2020-11-03 14:34 | MHC.CARE ---
Pt is a 40 year old female, well known to CARE Team with hx of psychiatric admissions and substance use disorder. CARE Team meets with patient, who has returned from [facility] today after being transferred there from [facility] for a EATS placement. Pt states that the staff there were assholes when asking her to change consultant and therefore she no longer wanted to stay. Pt appears to be in a precontemplative mindset relating to her sobriety. Pt advocates for herself to be admitted to [facility], however, pt does not meet criteria for this level of care and she was recently admitted to , but did not find this helpful. Pt continues to seek detox, but states that she only wants [facility]. Michael from recovery support reached out to admissions at [place] and they report that the best way to get a bed is to go to their waiting room first thing in the morning; they feel that they would most likely have a bed for patient tomorrow. CARE Team reaches out to the living room and secures pt a space for the night, with plan to send pt in a LYFT to [facility] in the morning. When CARE Team communicates this plan to patient, pt refuses to go to the living room, stating I will jump in traffic. This statement appears to be a response to not having the precise plan pt wants. Pt demands to remain in the ED overnight. She seems ambivalent about going to detox at this time. CARE Team communicates clearly to pt that this is the last referral that can be offered. Pt voiced understanding of the plan to go to [place] in a LYFT at 7:30AM. Plan is discussed with Dr. Poon, who does not feel patient should be discharged tonight. CARE Team will coordinate pt's discharge in the morning.
[2020-11-03 16:29] VITALS: BP 95/45; PULSE 60; RESP 16; TEMP 36.6; O2SAT 97
[2020-11-03] MEDS: LORazepam 1 MG TABLET PO (18:35)
--- NOTE | 2020-11-03 18:43 | PC.NURSE ---
PT tearful stating that she came here looking for help and is being forced to go to [facility] without a guaranteed bed. Pt states she will go out and jump into traffic if she has to or use the last 5% of my battery and call 911 to go to [facility] . PT states she feels safe in this hospital and has nothing left and noone to live for.
--- NOTE | 2020-11-04 05:59 | PC.NURSE ---
Patient slept through whole evening and night, missed her nighttime medication due to sleeping, no distress observed/reported, VSS, behavior appropriate, disposition per care team is detox at [facility] in [place], care team will arrange lift for the patient, no distress observed reported, asymptomatic for withdrawal, will continue to monitor.
--- NOTE | 2020-11-04 07:04 | PC.NURSE ---
Report from Pa LARSEN, p0t sleeping at this time, skin wd, resp reg and even, NAD. Awaiting dispo to [facility]
[2020-11-04 09:12] VITALS: PULSE 71; RESP 17; TEMP 37.1; O2SAT 98
[2020-11-04 09:22] VITALS: BP 116/50
--- NOTE | 2020-11-04 09:59 | PC.NURSE ---
ED provider Berenice in to bedside for re-eval
[2020-11-04] MEDS: DULoxetine HCl 60 MG CAPSULE.DR PO (10:08)
[2020-11-04] MEDS: ARIPiprazole 10 MG TABLET PO (10:08)
[2020-11-04] MEDS: Albuterol Sulfate 90 MCG 8 GM INHALER 2 PUFF INHALE (10:09)
[2020-11-04] MEDS: chlorproMAZINE HCl 100 MG TABLET PO (10:29)
[2020-11-04] MEDS: Buprenorphine/Naloxone 8/2 mg FILM 1 FILM SUBLINGUAL (10:33)
[2020-11-04 10:34] VITALS: BP 94/54
[2020-11-04] MEDS: Benzonatate 100 MG CAPSULE 200 MG PO (13:35)
[2020-11-04 13:36] VITALS: BP 118/76; PULSE 86
[2020-11-04] MEDS: chlorproMAZINE HCl 25 MG TABLET PO (13:36)
[2020-11-04] MEDS: cloNIDine HCL 0.1 MG TABLET PO (13:36)
[2020-11-04] MEDS: Ondansetron ODT 4 MG TAB.RAPDIS TRANSLINGU (13:36)
== END 2020-11-04 15:03 | disposition short-term general hospital (02) ==
PROVIDERS: Emergency Provider Emergency Medicine
DX: F33.1 Major depressive disorder, recurrent, moderate (principal); R45.851 Suicidal ideations; F11.10 Opioid abuse, uncomplicated; F17.210 Nicotine dependence, cigarettes, uncomplicated; Z71.6 Tobacco abuse counseling; Z79.899 Other long term (current) drug therapy
CPT/HCPCS: 99285